=== PATIENT | male | born 1975 | race Caucasian/White ===

== ENCOUNTER 2016-08-06 11:13 | Inpatient (IN) ==
--- NOTE | 2016-08-06 11:26 | Emergency Department Note ---
Disposition Clinical Impression: Perforated appendicitis Sepsis Qualifiers: Sepsis type: sepsis due to unspecified organism Qualified Code(s): A41.9 - Sepsis, unspecified organism Disposition: Admitted As Inpatient Condition: Fair Time of Disposition: 15:07 SOB HPI - General Chief Complaint: ED Shortness of Breath/Dyspnea Stated Complaint: SOB weakness Time Seen by Provider: 08/06/16 11:21 Source: patient Limitations: no limitations Nursing Notes Reviewed: Yes Vital Signs Reviewed: Yes - History of Present Illness 40-year-old male with history of GI bleed, previous colonoscopy showed a colonic ulcer, patient presents with abdominal pain and lower quadrant for 3 days, worsening for the last few hours. Patient states that he has had an episode of consultation then followed by diarrhea after he took a laxative. She states that he has 8 out of 10 crampy right lower quadrant pain also right upper quadrant pain. He has had some blood in his stool as well. Pt Subjective Complaint: shortness of breath Onset (ago): day(s) (3) Severity: mild Consistency/Duration: intermittent Improves with: nothing Worsens with: nothing Associated symptoms: Reports: denies other symptoms, fever, nausea/vomiting, abdominal pain. Denies: chest pain, pain with inspiration Treatment prior to arrival: none - Related Data Home Medications Medication Instructions Recorded Confirmed Albuterol Sulfate [Ventolin Hfa] 2 puff IH Q4H PRN 08/06/16 08/06/16 Ferrous Gluconate 324 mg PO DAILY 08/06/16 08/06/16 Lisinopril [Zestril] 20 mg PO DAILY 08/06/16 08/06/16 Metformin [Glucophage] 500 mg PO QPM 08/06/16 08/06/16 Metformin [Glucophage] 850 mg PO QAM 08/06/16 08/06/16 Mv-Mn/FA/Vit K/Lycop/Lut/Coq10 1 cap PO DAILY 08/06/16 08/06/16 [Daily Multivitamin Capsule] Allergies Allergy/AdvReac Type Severity Reaction Status Date / Time sulfamethoxazole AdvReac Nausea Verified 08/06/16 11:15 [From Bactrim] trimethoprim [From Bactrim] AdvReac Nausea Verified 08/06/16 11:15 All systems ED: reviewed and negative except as stated. Constitutional: Reports: fever. Denies: chills Cardiovascular: Denies: chest pain, palpitations Respiratory: Denies: cough, dyspnea, wheezes Gastrointestinal: Reports: as per HPI, abdominal pain, nausea, vomiting, diarrhea, constipation Genitourinary: Denies: urgency, dysuria Musculoskeletal: Denies: back pain Neurological: Denies: headache, weakness Past Medical History - Past Medical History Attestation: Yes The following information was validated with the patient. Source: patient Medical history: Reports: diabetes, hypertension Psychiatric history: Reports: no psych history - Social History Smoking Status: Never smoker Smokeless Tobacco Status: Yes Alcohol use: Reports: occasionally Drug use: Reports: none Physical Exam Constitutional: Patient appears in moderate discomfort, vital signs tachycardic HEENT: NCAT, sclera anicteric, PERRLA bilaterally, normal external ears bilaterally, nasal septum nondeviated, average dentition, MMM Neck: normal inspection, neck is supple, trachea midline Resp: normal chest inspection, CTA bilaterally, no resp distress CV: RRR, no m/g/r GI: obese abdomen No Rigidity, patient with some rebound tenderness, and moderate to severe tt palpation right lower quadrant, and guarding. Back: normal inspection, no tenderness to palpation Neuro: A&O3, no gross motor or sensory deficits bilaterally Skin: No rashes, skin warm, dry, intact - General Limitations: no limitations General appearance: alert Course Course Narrative: 40-year-old male with abdominal pain, given guarding on exam, concern for acute intra-abdominal pathology, if he did have a previous ulcer concerned about perforation patient also could have cholecystitis or appendicitis, CT with IV contrast of abdomen, hepatic panel basic labs IV fluids and antiemetics and pain medication. - Reevaluation(s) Reevaluation #1: Patient with perforated appendicitis, I did speak with the surgeon, he declined admission for this patient at this time given comorbidities of hypertension and diabetes, and perforated status he states medical management, I spoke with Dr. Melendrez he stated that he will come down to assess the patient as he feels that this is an surgically appropriate patient, and will discuss the case with Dr. Pack. Time: 15:10 Reevaluation #2: Patient had a blood pressure 80/40, added an extra liter of fluid, patient's blood pressure did respond this was immediately after Dilaudid was given, his blood pressure was 100/65 after that, maintain a map greater than 65 however patient was also evaluated y dr Melendrez at bedside Given tachycardia and leukocytosis, meets criteria for sepsis, meets her here for severe sepsis or septic shock with elevated lactate, this was ordered added fluids antibiotics. Dr. Pack was called by the hospitalist, he will come to the bedside to evaluate the patient for urgent/emergent operative management Time: 15:49 - Consultations Consultation #1: Spoke with Dr. Pack did discuss exam with guarding and concern for surgical abdomen, he stated that the patient is a medical patient, she be admitted to the hospitalist for an interval appendectomy, he will see the patient in consultation, no recs on antibiotics. Time: 15:09 Vital Signs Temperature 99.3 F 08/06/16 11:15 Pulse Rate 100 08/06/16 11:15 Respiratory Rate 16 08/06/16 11:15 Blood Pressure 142/71 08/06/16 11:15 O2 Sat by Pulse Oximetry 96 08/06/16 11:15 Temperature 99.3 F 08/06/16 11:28 Pulse Rate 102 08/06/16 16:03 Respiratory Rate 18 08/06/16 16:03 Blood Pressure 121/63 08/06/16 16:03 O2 Sat by Pulse Oximetry 97 08/06/16 16:03 Oxygen Delivery Oxygen Delivery Room Air Shortness of Breath/Dyspnea - Medical Records Medical records reviewed: Yes I reviewed the patient's medical records. - Lab Data Lab results reviewed: Yes I reviewed the patient's lab results. Result diagrams: 08/06/16 11:44 08/06/16 11:44 Lab Results 08/06/16 08/06/16 08/06/16 Range/Units 11:35 11:44 11:44 WBC 18.9 H (4.3-11.1) K/mcL RBC 4.84 (4.19-5.50) M/mcL Hgb 12.3 L (12.9-16.9) g/dL Hct 38.5 (37.5-50.1) % MCV 79.5 L (83.0-100.0) fL MCH 25.4 L (28.0-33.3) pg MCHC 31.9 (31.6-35.5) g/dL RDW 15.6 H (11.5-14.5) % Plt Count 274 (140-400) K/mcL MPV 11.0 (9.4-12.4) fL Immature Gran % 1.1 (0-4) % Seg Neutrophils % 91.0 % Lymphocytes % 3.5 % Monocytes % 3.9 % Eosinophils % 0.2 % Basophils % 0.3 % Neutrophils # 17.2 H (1.6-8.9) K/mcL Lymphocytes # 0.7 (0.6-4.6) K/mcL Monocytes # 0.7 (0.0-1.3) K/mcL Eosinophils # 0.0 (0.0-0.6) K/mcL Basophils # 0.1 (0.0-0.2) K/mcL Platelet Estimate Normal (Normal) Immature Plt Fraction 8.3 H (1.1-6.1) % PT (9.4-12.1) Seconds INR APTT (26.0-36.0) Seconds Sodium 134 L (136-145) mEq/L Potassium 3.6 (3.5-4.5) mEq/L Chloride 104 (98-109) mEq/L Carbon Dioxide 22 (19-29) mEq/L BUN 13 (8-26) mg/dL Creatinine 0.85 (0.72-1.25) mg/dL Est GFR ( Amer) > 60 (> 60) Est GFR (Non-Af Amer) > 60 (> 60) BUN/Creatinine Ratio 15 (6-26) Glucose 148 H (70-99) mg/dL Calculated Osmolality 281 (280-300) Lactic Acid (0.5-2.2) mmol/L Calcium 8.8 (8.6-10.8) mg/dL Total Bilirubin 1.7 H (0.2-1.2) mg/dL Direct Bilirubin 0.7 H (0.0-0.5) mg/dL Indirect Bilirubin 1.0 (0.0-1.2) mg/dL AST 9 (5-34) Units/L ALT 15 (0-55) Units/L Alkaline Phosphatase 79 (38-126) Units/L Troponin I (0-0.03) ng/mL Serum Total Protein 6.5 (6.0-8.3) g/dL Albumin 2.8 L (3.5-5.0) g/dL Globulin 3.7 H (2.4-3.5) g/dL Albumin/Globulin Ratio 0.8 L (1.1-2.2) Amylase 16 L (25-125) Units/L Lipase 6 L (8-78) Units/L Urine Color (Yellow) Urine Clarity (Clear) Urine pH (5.0-8.0) pH Units Ur Specific [place] (1.010-1.025) Urine Protein (Neg-Trace) mg/dL Urine Glucose (UA) (Normal) mg/dL Urine Ketones (Negative) mg/dL Urine Blood (Negative) Urine Nitrite (Negative) Urine Bilirubin (Negative) Urine Urobilinogen (Normal) mg/dL Ur Leukocyte Esterase (Negative) Urine Microscopic RBC (0-3) per hpf Urine Microscopic WBC (0-3) per hpf Ur Squamous Epith Cells (None-Few) per lpf Urine Bacteria (None-Few) per hpf Hyaline Casts (None-Few) per lpf Ur Culture Indicated? (NO) Stool Occult Blood Negative (Negative) 08/06/16 08/06/16 08/06/16 Range/Units 11:44 13:15 14:56 WBC (4.3-11.1) K/mcL RBC (4.19-5.50) M/mcL Hgb (12.9-16.9) g/dL Hct (37.5-50.1) % MCV (83.0-100.0) fL MCH (28.0-33.3) pg MCHC (31.6-35.5) g/dL RDW (11.5-14.5) % Plt Count (140-400) K/mcL MPV (9.4-12.4) fL Immature Gran % (0-4) % Seg Neutrophils % % Lymphocytes % % Monocytes % % Eosinophils % % Basophils % % Neutrophils # (1.6-8.9) K/mcL Lymphocytes # (0.6-4.6) K/mcL Monocytes # (0.0-1.3) K/mcL Eosinophils # (0.0-0.6) K/mcL Basophils # (0.0-0.2) K/mcL Platelet Estimate (Normal) Immature Plt Fraction (1.1-6.1) % PT 13.7 H (9.4-12.1) Seconds INR 1.3 APTT 30.3 (26.0-36.0) Seconds Sodium (136-145) mEq/L Potassium (3.5-4.5) mEq/L Chloride (98-109) mEq/L Carbon Dioxide (19-29) mEq/L BUN (8-26) mg/dL Creatinine (0.72-1.25) mg/dL Est GFR ( Amer) (> 60) Est GFR (Non-Af Amer) (> 60) BUN/Creatinine Ratio (6-26) Glucose (70-99) mg/dL Calculated Osmolality (280-300) Lactic Acid (0.5-2.2) mmol/L Calcium (8.6-10.8) mg/dL Total Bilirubin (0.2-1.2) mg/dL Direct Bilirubin (0.0-0.5) mg/dL Indirect Bilirubin (0.0-1.2) mg/dL AST (5-34) Units/L ALT (0-55) Units/L Alkaline Phosphatase (38-126) Units/L Troponin I 0.00 (0-0.03) ng/mL Serum Total Protein (6.0-8.3) g/dL Albumin (3.5-5.0) g/dL Globulin (2.4-3.5) g/dL Albumin/Globulin Ratio (1.1-2.2) Amylase (25-125) Units/L Lipase (8-78) Units/L Urine Color Dark Yellow (Yellow) Urine Clarity Cloudy A (Clear) Urine pH 6.0 (5.0-8.0) pH Units Ur Specific [place] 1.029 H (1.010-1.025) Urine Protein 100 H (Neg-Trace) mg/dL Urine Glucose (UA) Normal (Normal) mg/dL Urine Ketones 40 H (Negative) mg/dL Urine Blood Negative (Negative) Urine Nitrite Negative (Negative) Urine Bilirubin Small H (Negative) Urine Urobilinogen Normal (Normal) mg/dL Ur Leukocyte Esterase Negative (Negative) Urine Microscopic RBC 0-3 (0-3) per hpf Urine Microscopic WBC 5-15 H (0-3) per hpf Ur Squamous Epith Cells Many H (None-Few) per lpf Urine Bacteria None Seen (None-Few) per hpf Hyaline Casts None Seen (None-Few) per lpf Ur Culture Indicated? YES A (NO) Stool Occult Blood (Negative) 08/06/16 Range/Units 16:10 WBC (4.3-11.1) K/mcL RBC (4.19-5.50) M/mcL Hgb (12.9-16.9) g/dL Hct (37.5-50.1) % MCV (83.0-100.0) fL MCH (28.0-33.3) pg MCHC (31.6-35.5) g/dL RDW (11.5-14.5) % Plt Count (140-400) K/mcL MPV (9.4-12.4) fL Immature Gran % (0-4) % Seg Neutrophils % % Lymphocytes % % Monocytes % % Eosinophils % % Basophils % % Neutrophils # (1.6-8.9) K/mcL Lymphocytes # (0.6-4.6) K/mcL Monocytes # (0.0-1.3) K/mcL Eosinophils # (0.0-0.6) K/mcL Basophils # (0.0-0.2) K/mcL Platelet Estimate (Normal) Immature Plt Fraction (1.1-6.1) % PT (9.4-12.1) Seconds INR APTT (26.0-36.0) Seconds Sodium (136-145) mEq/L Potassium (3.5-4.5) mEq/L Chloride (98-109) mEq/L Carbon Dioxide (19-29) mEq/L BUN (8-26) mg/dL Creatinine (0.72-1.25) mg/dL Est GFR ( Amer) (> 60) Est GFR (Non-Af Amer) (> 60) BUN/Creatinine Ratio (6-26) Glucose (70-99) mg/dL Calculated Osmolality (280-300) Lactic Acid 0.7 (0.5-2.2) mmol/L Calcium (8.6-10.8) mg/dL Total Bilirubin (0.2-1.2) mg/dL Direct Bilirubin (0.0-0.5) mg/dL Indirect Bilirubin (0.0-1.2) mg/dL AST (5-34) Units/L ALT (0-55) Units/L Alkaline Phosphatase (38-126) Units/L Troponin I (0-0.03) ng/mL Serum Total Protein (6.0-8.3) g/dL Albumin (3.5-5.0) g/dL Globulin (2.4-3.5) g/dL Albumin/Globulin Ratio (1.1-2.2) Amylase (25-125) Units/L Lipase (8-78) Units/L Urine Color (Yellow) Urine Clarity (Clear) Urine pH (5.0-8.0) pH Units Ur Specific [place] (1.010-1.025) Urine Protein (Neg-Trace) mg/dL Urine Glucose (UA) (Normal) mg/dL Urine Ketones (Negative) mg/dL Urine Blood (Negative) Urine Nitrite (Negative) Urine Bilirubin (Negative) Urine Urobilinogen (Normal) mg/dL Ur Leukocyte Esterase (Negative) Urine Microscopic RBC (0-3) per hpf Urine Microscopic WBC (0-3) per hpf Ur Squamous Epith Cells (None-Few) per lpf Urine Bacteria (None-Few) per hpf Hyaline Casts (None-Few) per lpf Ur Culture Indicated? (NO) Stool Occult Blood (Negative) - Radiology Data Radiology results reviewed: Yes I reviewed the patient's radiology results. - EKG Data EKG attestation: Yes I reviewed and interpreted this EKG. EKG shows normal: Reports: sinus rhythm Rate: Reports: tachycardia (Sinus tachycardia ventricular rate 100 CA 138 QRS [address] segment changes from previous EKG in 2013) Rhythm: Reports: NSR [place]/QRS: Reports: normal Interpretation: Reports: no acute changes
[2016-08-06] MEDS ORDERED: Ondansetron 4 MG/2 ML VIAL IVP ONE ×2 (11:34→14:41)
[2016-08-06] MEDS ORDERED: 0.9 % Sodium Chloride 1,000 ML IVC ONE (11:34)
[2016-08-06] MEDS ORDERED: Pantoprazole 40 MG VIAL IVP ONE (11:34)
--- NOTE | 2016-08-06 11:49 | Emergency Department Note ---
START Narrative - START START: I examined this patient and my medical decision-making was reviewed with the [employer]/PA/Advanced Practice Nurse/Resident Physician. I agree with the documented findings, disposition and treatment plan as described except to the extent set forth below. ED attending note: Patient seen with emergency medicine resident Dr. Nails. Please see a copy of his note for details of the H&P, evaluation, management and disposition of this patient. We independently had [id number] contact with the patient Briefly: A 40-year-old obese male presents with significant other abdominal pain in the left side. History of intestinal ulcers in the past by endoscopy. The GI bleeding in the past in 2013. Denies any dark stools. He said he has not been using nonsteroidal anti-inflammatory drugs. Slight tachycardia at rest between 101 06. Hypertensive which is baseline. Patient will get labs IV fluids and abdominal pelvic CT. Disposition pending.
[2016-08-06 12:17] LABS: Basophils # 0.1 K/mcL (0.0-0.2); Basophils % 0.3 %; Eosinophils % 0.2 %; Hematocrit 38.5 % (37.5-50.1); Hemoglobin 12.3 g/dL (12.9-16.9); Immature Granulocytes % 1.1 % (0-4); Immature Platelets 8.3 % (1.1-6.1); Lymphocytes # 0.7 K/mcL (0.6-4.6); Lymphocytes % 3.5 %; Mean Corpuscular HGB Conc 31.9 g/dL (31.6-35.5); Mean Corpuscular Hemoglobin 25.4 pg (28.0-33.3); Mean Corpuscular Volume 79.5 fL (83.0-100.0); Monocytes # 0.7 K/mcL (0.0-1.3); Monocytes % 3.9 %; Neutrophils # 17.2 K/mcL (1.6-8.9); Platelet Count 274 K/mcL (140-400); Red Blood Count 4.84 M/mcL (4.19-5.50); Red Cell Distribution Width 15.6 % (11.5-14.5)
[2016-08-06 12:32] LABS: Alanine Aminotransferase 15 Units/L (0-55); Albumin 2.8 g/dL (3.5-5.0); Albumin/Globulin Ratio 0.8 (1.1-2.2); Alkaline Phosphatase 79 Units/L (38-126); Amylase 16 Units/L (25-125); Aspartate Amino Transferase 9 Units/L (5-34); BUN/Creatinine Ratio 15 (6-26); Bilirubin,Direct 0.7 mg/dL (0.0-0.5); Bilirubin,Total 1.7 mg/dL (0.2-1.2); Blood Urea Nitrogen 13 mg/dL (8-26); Calcium 8.8 mg/dL (8.6-10.8); Carbon Dioxide 22 mEq/L (19-29); Chloride 104 mEq/L (98-109); Globulin 3.7 g/dL (2.4-3.5); Glucose 148 mg/dL (70-99); Lipase 6 Units/L (8-78); Osmolality,Calculated 281 (280-300); Potassium 3.6 mEq/L (3.5-4.5); Sodium 134 mEq/L (136-145); Total Protein 6.5 g/dL (6.0-8.3); eGFR For African Americans > 60 (> 60); eGFR For Non-African Americans > 60 (> 60)
[2016-08-06 12:46] LABS: Platelet Estimate Normal (Normal)
[2016-08-06 13:28] LABS: Bilirubin,Urine Small (Negative); Blood,Urine Negative (Negative); Clarity,Urine Cloudy (Clear); Color,Urine Dark Yellow (Yellow); Glucose,Urine (UA) Normal (Normal); Ketones,Urine 40 mg/dL (Negative); Leukocyte Esterase,Urine Negative (Negative); Nitrite,Urine Negative (Negative); Protein,Urine 100 mg/dL (Neg-Trace); Specific Gravity,Urine 1.029 (1.010-1.025); Urobilinogen,Urine Normal (Normal)
[2016-08-06 13:30] LABS: Bacteria,Urine None Seen per hpf (None-Few); Hyaline Casts,Urine None Seen per lpf (None-Few); RBC,Urine 0-3 per hpf (0-3); Squamous Epithelial Cell,Urine Many per lpf (None-Few)
[2016-08-06] MEDS ORDERED: *HR* HYDROmorphone (PF) 1 MG/ML SYRINGE IVP ONE (14:41)
[2016-08-06] MEDS ORDERED: 0.9 % Sodium Chloride 1,000 ML IV ONE (15:37)
[2016-08-06] MEDS ORDERED: Piperacillin/Tazobactam 3.375 GM in D5% in Water (Mini-Bag+) 100 ML IVPB ONE (15:38)
[2016-08-06] MEDS ORDERED: Vancomycin 1,000 MG in D5% in Water 250 ML IV ONE (15:46)
[2016-08-06 16:08] LABS: INR 1.3; Prothrombin Time 13.7 Seconds (9.4-12.1)
[2016-08-06 16:11] LABS: Activated Partial Thrombo Time 30.3 Seconds (26.0-36.0)
--- NOTE | 2016-08-06 16:22 | Internal Medicine Consult Note ---
Date of Encounter: 08/06/16 Time of Encounter: 16:12 - Assessment and Plan (1) Septic shock Current Visit: Yes Status: Acute Assessment and plan: We will give 30 mL per kilogram normal saline IV bolus. Check lactic acid stat. Repeat lactic acid at 3 hours. Obtain 2 blood cultures. 2 blood cultures. Obtain urine culture. Broad spectrum IV antibiotic to cover gram- negative rods gram-positive cocci and anaerobes with Zosyn and vancomycin. Source control per surgical service. (2) Essential hypertension Current Visit: Yes Status: Acute Assessment and plan: Hold off on antihypertensives due to hypotension. (3) Type 2 diabetes mellitus Current Visit: Yes Status: Acute Assessment and plan: Insulin sliding scale. Check hemoglobin A1c. Qualifiers: Qualified Code(s): E11.9 - Type 2 diabetes mellitus without complications (4) Intra-abdominal abscess Current Visit: Yes Status: Acute Assessment and plan: Broad-spectrum IV antibiotics. (5) DVT prophylaxis Current Visit: Yes Status: Acute Assessment and plan: Recommend Lovenox for DVT prophylaxis. (6) Perforated appendicitis Current Visit: Yes Status: Acute Assessment and plan: Patient has perforated appendicitis as a suspected source of sepsis and requires emergent surgical evaluation. He ultimately requires surgical management for this. I will defer management to surgical service. Internal Medicine - CN: HPI - Data of Consult Patient: new to practice Requesting Physician: Dr. Price - Consult Narrative History of present illness: Mr. Dewey is a 40 year old male with past medical history significant for hypertension diabetes and morbid obesity who presented to the hospital for right -sided abdominal pain. He states that for the last 5 days has had constipation and 2 days ago on Sunday he started having moderate to severe right lower abdominal pain. He thought it was due to his constipation and he started taking some laxatives. The next day he had a bowel movement and the pain subsided slightly however then increased again in intensity to the point where he got unbearable 10/10 stabbing and reporting right lower abdominal pain associated with nausea no vomiting generalized weakness and subjective fevers. At this point he could not stand up and walk as that but exacerbated the pain. He presented to the hospital where he was evaluated in the emergency department and found to be febrile and tachycardic. CT of the abdomen showed evidence of perforated appendix and an gas/fluid collection suspicious for abscess. We were called to admit the patient to the medical service. A 10 point review of systems was negative except as above. Family history positive for diabetes in both parents and grandparents. Physical exam: Patient is in distress due to abdominal pain, and an antalgic position lying on his side. He is ill-appearing. Head atraumatic, pupils equal round reactive to light conjunctivae anicteric Oral mucosa dry, neck supple no JVD Heart is tachycardic regular S1-S2 with no murmurs Lungs with diminished breath sounds bilaterally. Poor inspiratory effort. Abdomen is obese, soft, tender to. Palpation in the right lower quadrant with localized guarding and rebound tenderness. Extremities with no edema clubbing or cyanosis Skin with no rashes no open wounds Neuro exam awake alert oriented 3 with no focal neurological deficits. Past Med Surg Social Fam HX - Past Medical History Medical history: diabetes, hypertension Psychiatric history: no psych history - Social History Smoking Status: Never smoker Smokeless Tobacco Status: Yes Alcohol use: occasionally Drug use: none Internal Medicine - CN: Meds Albuterol Sulfate [Ventolin Hfa] 2 puff IH Q4H PRN 08/06/16 [History] Ferrous Gluconate 324 mg PO DAILY 08/06/16 [History] Lisinopril [Zestril] 20 mg PO DAILY 08/06/16 [History] Metformin [Glucophage] 500 mg PO QPM 08/06/16 [History] Metformin [Glucophage] 850 mg PO QAM 08/06/16 [History] Mv-Mn/FA/Vit K/Lycop/Lut/Coq10 [Daily Multivitamin Capsule] 1 cap PO DAILY 08/06 [History] Allergies sulfamethoxazole [From Bactrim] Adverse Reaction (Verified 08/06/16 11:15) Nausea trimethoprim [From Bactrim] Adverse Reaction (Verified 08/06/16 11:15) Nausea Internal Medicine - CN: Exam - Constitutional Vitals: Temp Pulse Resp BP Pulse Ox 99.3 F 102 18 121/63 97 08/06/16 11:28 08/06/16 16:03 08/06/16 16:03 08/06/16 16:03 08/06/16 16:03 General appearance IM: Present: A&O X 3, morbidly obese - Respiratory Respiratory exam: Present: CTAB Additional comments: Diminished breath sounds bilaterally due to pain. Internal Medicine - CN: Reslt - Labs CBC & Chem 7: 08/06/16 11:44 08/06/16 11:44 Labs: Short CBC 08/06/16 Range/Units 11:44 WBC 18.9 H (4.3-11.1) K/mcL Hgb 12.3 L (12.9-16.9) g/dL Hct 38.5 (37.5-50.1) % Plt Count 274 (140-400) K/mcL Neutrophils # 17.2 H (1.6-8.9) K/mcL BMP 08/06/16 11:44 Sodium 134 L Potassium 3.6 Chloride 104 Carbon Dioxide 22 BUN 13 Creatinine 0.85 Glucose 148 H Calcium 8.8 Cardiac Enzymes 08/06/16 Range/Units 11:44 Troponin I 0.00 (0-0.03) ng/mL Liver Function 08/06/16 Range/Units 11:44 Total Bilirubin 1.7 H (0.2-1.2) mg/dL Direct Bilirubin 0.7 H (0.0-0.5) mg/dL AST 9 (5-34) Units/L ALT 15 (0-55) Units/L Alkaline Phosphatase 79 (38-126) Units/L Albumin 2.8 L (3.5-5.0) g/dL Urine 08/06/16 Range/Units 13:15 Urine Color Dark Yellow (Yellow) Urine Clarity Cloudy A (Clear) Urine pH 6.0 (5.0-8.0) pH Units Ur Specific [place] 1.029 H (1.010-1.025) Urine Protein 100 H (Neg-Trace) mg/dL Urine Glucose (UA) Normal (Normal) mg/dL - ABG Interpretation ABG results: PT/INR, D-dimer PT 13.7 Seconds (9.4-12.1) H 08/06/16 14:56 - EKG Data EKG comments: 08/06/16 16:29 Telemetry strip reviewed by myself shows sinus tachycardia. - Impressions Impressions Abdomen/Pelvis CT 08/06/16 11:37 IMPRESSION: Acute perforated appendicitis. A 2 cm gas and fluid collection adjacent to the tip of the appendix is suspicious for a small abscess D/ / Freedom Anderson MD / Freedom Anderson MD Interpreting Provider: Freedom Anderson MD Consult Discharge Plan - Plan
[2016-08-06] MEDS ORDERED: Acetaminophen IV 1,000 MG/100 ML INFUS..BTL IVPB ONE (16:27)
[2016-08-06] MEDS: 0.9 % Sodium Chloride 1,000 ML IVC SCH ×2 (17:05→20:01)
[2016-08-06] MEDS: *HR* HYDROmorphone (PF) 1 MG/ML SYRINGE IVP ONE (17:17)
[2016-08-06] MEDS ORDERED: *HR* Dextrose 50 % in Water (Syg) 50 ML SYRINGE IVP PRN ×2 (17:24→19:08)
[2016-08-06] MEDS ORDERED: D5% in Water 1,000 ML IV PRN ×2 (17:24→19:08)
[2016-08-06] MEDS ORDERED: Ondansetron 4 MG/2 ML VIAL IVP PRN (17:24)
[2016-08-06] MEDS ORDERED: Dextrose Gel 15 GM PO PRN ×2 (17:24→19:08)
[2016-08-06] MEDS ORDERED: Nicotine 21 MG PATCH.TD24 TD SCH (17:30)
[2016-08-06] MEDS ORDERED: Insulin LISPRO 300 UNITS/3 ML VIAL SQ SCH (17:30)
[2016-08-06] MEDS ORDERED: Piperacillin/Tazobactam 3.375 GM in D5% in Water (Mini-Bag+) 100 ML IVPB SCH (18:00)
--- NOTE | 2016-08-06 18:17 | Pulmonology Consult Note ---
Date of Encounter: 08/06/16 Time of Encounter: 18:16 Assessment and Plan (1) Sepsis Current Visit: Yes Status: Acute Sepsis secondary to intra-abdominal source including ruptured appendicitis with formation intra-abdominal abscess. MAP >65 at this time. Lactate WNL. Remains tachycardic likely pain coupled with infection -Cont IV ABx -Escalante cultures pending - Patient has recieved 2L of Crystolloid INfusion -COnt IV fluids (LR at 125cc/hr) Qualifiers: Sepsis type: sepsis due to unspecified organism Qualified Code(s): A41.9 - Sepsis, unspecified organism (2) Intra-abdominal abscess Current Visit: Yes Status: Acute Continue IV ABx Pip/Tazo for intraabdominal coverage. (3) Perforated appendicitis Current Visit: Yes Status: Acute -General Surgery is kindly following the patient. No Surgical intervention planned this evening -Keep NPO for now cont IV pain control with Morphine -Nausea control with Zofran - (4) Type 2 diabetes mellitus Current Visit: Yes Status: Acute Type 2 diabetes however patient is maintained on oral agents including metformin which will hold acutely put on sliding scale and insulin check Accu- Cheks every 6 hours while nothing by mouth Qualifiers: Diabetes mellitus complication status: without complication Diabetes mellitus intermediate designer insulin use: without intermediate designer use Qualified Code(s): E11.9 - Type 2 diabetes mellitus without complications (5) Essential hypertension Current Visit: Yes Status: Acute (6) DVT prophylaxis Current Visit: Yes Status: Acute Recommned Chemical DVT prophylaxis while inpatient. History of Present Illness Consult date: 08/06/16 Requesting physician: Anibal Pack Reason for consult: other (sepsis) Chief complaint: Abdominal Pain History of present illness: Very pleasant 40-year-old gentleman who presented with abdominal pain of 2 days ' duration. For that Sunday he started having right lower quadrant abdominal pain with nausea and diarrhea for which he took OTC (immodium). His symptoms continued through Sunday woke up this morning and the pain was so intense that he felt like he could not bear it anymore and presented to the emergency department. In the emergency department a CT of the abdomen was performed which was notable for ruptured appendix. Patient was showing signs of sepsis including tachycardia and elevated white count and was started empirically on antimicrobials and given some IV crystalloid infusion. He was evaluated by the general surgery attending who felt medical management at present was consideration of surgery in the future. Our services consult for further management as patient had been triaged to the intensive care unit. His past medical history is remarkable for obstructive sleep apnea status post UP3 with resolution of symptoms and per the patient repeat polysomnogram was not indicative of residual disease. He is a lifelong nonsmoker and a social (Rare) use of EtOH. He denies IV drug use Of note he was recently admitted in the [facility] for a staph abscess which was drained and treated with antimicrobials Past Med Surg Social Fam HX - Past Medical History Medical history: diabetes, hypertension Psychiatric history: no psych history - Social History Smoking Status: Never smoker Smokeless Tobacco Status: Yes Alcohol use: occasionally Drug use: none Medications and Allergies Albuterol Sulfate [Ventolin Hfa] 2 puff IH Q4H PRN 08/06/16 [History] Ferrous Gluconate 324 mg PO DAILY 08/06/16 [History] Lisinopril [Zestril] 20 mg PO DAILY 08/06/16 [History] Metformin [Glucophage] 500 mg PO QPM 08/06/16 [History] Metformin [Glucophage] 850 mg PO QAM 08/06/16 [History] Mv-Mn/FA/Vit K/Lycop/Lut/Coq10 [Daily Multivitamin Capsule] 1 cap PO DAILY 08/06 [History] Allergies sulfamethoxazole [From Bactrim] Adverse Reaction (Verified 08/06/16 11:15) Nausea trimethoprim [From Bactrim] Adverse Reaction (Verified 08/06/16 11:15) Nausea All Systems: A 10-system review of systems was performed and is negative for pertinent findings except as documented above in the HPI. Physical Examination Vital Signs: Vital Signs, Last 4 Hours Temp Pulse Resp BP Pulse Ox 08/06/16 17:33 18 127/83 08/06/16 17:24 100.7 F H 106 20 124/70 95 General appearance: appears uncomfortable Eyes: nonicteric ENT: oropharynx moist Effort: mildly labored Auscultation: bilateral: diminished breath sounds Gastrointestinal: hypoactive bowel sounds, tender, rebound tenderness Integumentary: normal Extremities: no edema Musculoskeletal: no deformities normal mental status, non-focal exam mood appropriate Results - Laboratory Findings CBC and BMP: 08/06/16 11:44 08/06/16 11:44 PT/INR, D-dimer PT 13.7 Seconds (9.4-12.1) H 08/06/16 14:56 Abnormal lab findings: Abnormal lab results WBC 18.9 K/mcL (4.3-11.1) H 08/06/16 11:44 Hgb 12.3 g/dL (12.9-16.9) L 08/06/16 11:44 MCV 79.5 fL (83.0-100.0) L 08/06/16 11:44 MCH 25.4 pg (28.0-33.3) L 08/06/16 11:44 RDW 15.6 % (11.5-14.5) H 08/06/16 11:44 Neutrophils # 17.2 K/mcL (1.6-8.9) H 08/06/16 11:44 Immature Plt Fraction 8.3 % (1.1-6.1) H 08/06/16 11:44 PT 13.7 Seconds (9.4-12.1) H 08/06/16 14:56 Sodium 134 mEq/L (136-145) L 08/06/16 11:44 Glucose 148 mg/dL (70-99) H 08/06/16 11:44 POC Glucose 117 (58-89) H 08/06/16 17:59 Total Bilirubin 1.7 mg/dL (0.2-1.2) H 08/06/16 11:44 Direct Bilirubin 0.7 mg/dL (0.0-0.5) H 08/06/16 11:44 Albumin 2.8 g/dL (3.5-5.0) L 08/06/16 11:44 Globulin 3.7 g/dL (2.4-3.5) H 08/06/16 11:44 Albumin/Globulin Ratio 0.8 (1.1-2.2) L 08/06/16 11:44 Amylase 16 Units/L (25-125) L 08/06/16 11:44 Lipase 6 Units/L (8-78) L 08/06/16 11:44 Urine Clarity Cloudy (Clear) A 08/06/16 13:15 Ur Specific [place] 1.029 (1.010-1.025) H 08/06/16 13:15 Urine Protein 100 mg/dL (Neg-Trace) H 08/06/16 13:15 Urine Ketones 40 mg/dL (Negative) H 08/06/16 13:15 Urine Bilirubin Small (Negative) H 08/06/16 13:15 Urine Microscopic WBC 5-15 per hpf (0-3) H 08/06/16 13:15 Ur Squamous Epith Cells Many per lpf (None-Few) H 08/06/16 13:15 Ur Culture Indicated? YES (NO) A 08/06/16 13:15 - Diagnostic Findings Additional studies: CT abdomen reviewed - Clinical Findings Intake & Output: Intake & Output 08/06/16 08/06/16 08/06/16 07:59 15:59 23:59 Output Total 0 / 0 Balance 0 / 0 Consult Discharge Plan - Plan Referrals: NO,PCP [Primary Care Provider] -
--- NOTE | 2016-08-06 18:30 | General Surg History&Physical ---
Date of Encounter: 08/06/16 Time of Encounter: 16:00 History of Present Illness Chief complaint: acute abdominal pain, acute perforated appendicitis HPI: Mr. Dewey is a 40 year old male referred to Surgical Services for further evaluation and possible treatment 3 days history right lower quadrant abdominal pain. The patient is known to me related to a colonoscopy approx 2 years ago for anemia / GI hemorrhage. The patient has a chronic history constipation. He describes no BM for the past 5 days, which he assumed was the source of his pain. Oral laxatives were ingested with no improvement in his symptoms. The patient presented to [facility] ED this morning with complaints cramping right lower quadrant abdominal pain and "difficulty breathing\\/shortness of breath. During my encounter with the patient, he described pain on deep inspiration and walking. vital signs on admission included a temp 99.3, pulse 100, respirations 16 and BP 142/71. SPO2 on room air was 96 %. WBC 18.9, Hgb 12.3/Hct 38.5. The patient was extremely tender RLQ with guarding. CT of the abd/pelvis showed: left basilar atelectasis, extensive inflammatory stranding surrounding the tip of the cecum with multiple extraluminal gas bubbles posterior to the cecum, a dilated and inflamed appendix , a 2 cm fluid collection containing gas near the tip of the cecum. These findings are consistent with acute perforated appendicitis. Surgical recommendations included IV fluids, IV ATB, appropriate pain control and if the patient improves with this therapy, interval appendectomy in approx 6 weeks. Medical assessment disagreed with these recommendations. The admission was deferred to Surgical Services. past medical history: Hypertension, abh-[id number] diabetes, nd recent hospitalization for a staphylococcal bacteremia. Surgical history: Tonsillectomy, colonoscopy with finding of bowel ulcer as the source of the anemia and GI hemorrhage. This was attributed to patient's frequent use NSAIDs. Allergies: sulfa Medications: Albuterol Hfa 2 puffs Q4H PRN ferrous gluconate 324 mg po daily lisinopril 20 mg po daily metformin 500 mg po QPM, metformin 850 mg po QAM multivitamin 1 po daily SH: patient denies smoking (smokeless ?); he admits to almost daily alcohol consumption, denies any illicit drug use Physical Examination: obese, age appropriate male in distress due to abdominal pain. skin warm, no obvious jaundice maximum temp 99.3; pulse 102-109, respirations 18, BP on repeated measurement 121/63d Lungs clear to auscultation; abdominal pain with deep inspiration and cough Cardiac: tachycardia, nno appreciable murmurs Abdomen: obese, right lower quadrant tenderness and guarding; less tenderness LLQ with pain referred to RLQ. Hypoactive bowel sounds. no elicited rebound. Extremities: no obvious clubbing, cyanosis, or edema laboratories as noted above; electrolytes,BUN, creatinine within normal limits; estimated GFR greater than 60 Ct was personally reviewed in the ED Impression: 40 yo presents with approx 3 day history acute RLQ abdominal pain. Radiologic evidence acute perforated appendicitis. Prolonged evaluation in the ED with subsequent referral to surgical services. NIDDM, hypertension, history anemia/Gi hemorrhage Plan: admit ICU for aggressive resuscitation and monitoring IV ATB, IV narcotic analgesics, anti emetics as needed Past Med Surg Social Fam HX - Past Medical History Medical history: diabetes, hypertension Psychiatric history: no psych history - Social History Smoking Status: Never smoker Smokeless Tobacco Status: Yes Alcohol use: occasionally Drug use: none Medications and Allergies Albuterol Sulfate [Ventolin Hfa] 2 puff IH Q4H PRN 08/06/16 [History] Ferrous Gluconate 324 mg PO DAILY 08/06/16 [History] Lisinopril [Zestril] 20 mg PO DAILY 08/06/16 [History] Metformin [Glucophage] 500 mg PO QPM 08/06/16 [History] Metformin [Glucophage] 850 mg PO QAM 08/06/16 [History] Mv-Mn/FA/Vit K/Lycop/Lut/Coq10 [Daily Multivitamin Capsule] 1 cap PO DAILY 08/06 [History] Allergies sulfamethoxazole [From Bactrim] Adverse Reaction (Verified 08/06/16 11:15) Nausea trimethoprim [From Bactrim] Adverse Reaction (Verified 08/06/16 11:15) Nausea Review of Systems All systems PM: A 10-system review of systems was performed and is negative for pertinent findings except as documented above in the HPI. General Surgery Exam Initial Vital Signs Temp Pulse Resp BP Pulse Ox 99.3 F 100 16 142/71 96 08/06/16 11:15 08/06/16 11:15 08/06/16 11:15 08/06/16 11:15 08/06/16 11:15 Results - Labs 03/12/17 11:44 08/06/16 11:44 Abnormal lab results WBC 18.9 K/mcL (4.3-11.1) H 08/06/16 11:44 Hgb 12.3 g/dL (12.9-16.9) L 08/06/16 11:44 MCV 79.5 fL (83.0-100.0) L 08/06/16 11:44 MCH 25.4 pg (28.0-33.3) L 08/06/16 11:44 RDW 15.6 % (11.5-14.5) H 08/06/16 11:44 Neutrophils # 17.2 K/mcL (1.6-8.9) H 08/06/16 11:44 Immature Plt Fraction 8.3 % (1.1-6.1) H 08/06/16 11:44 PT 13.7 Seconds (9.4-12.1) H 08/06/16 14:56 Sodium 134 mEq/L (136-145) L 08/06/16 11:44 Glucose 148 mg/dL (70-99) H 08/06/16 11:44 Total Bilirubin 1.7 mg/dL (0.2-1.2) H 08/06/16 11:44 Direct Bilirubin 0.7 mg/dL (0.0-0.5) H 08/06/16 11:44 Albumin 2.8 g/dL (3.5-5.0) L 08/06/16 11:44 Globulin 3.7 g/dL (2.4-3.5) H 08/06/16 11:44 Albumin/Globulin Ratio 0.8 (1.1-2.2) L 08/06/16 11:44 Amylase 16 Units/L (25-125) L 08/06/16 11:44 Lipase 6 Units/L (8-78) L 08/06/16 11:44 Urine Clarity Cloudy (Clear) A 08/06/16 13:15 Ur Specific [place] 1.029 (1.010-1.025) H 08/06/16 13:15 Urine Protein 100 mg/dL (Neg-Trace) H 08/06/16 13:15 Urine Ketones 40 mg/dL (Negative) H 08/06/16 13:15 Urine Bilirubin Small (Negative) H 08/06/16 13:15 Urine Microscopic WBC 5-15 per hpf (0-3) H 08/06/16 13:15 Ur Squamous Epith Cells Many per lpf (None-Few) H 08/06/16 13:15 Ur Culture Indicated? YES (NO) A 08/06/16 13:15 All other labs normal.
[2016-08-06] MEDS ORDERED: *HR* Morphine 2 MG/ML SYRINGE IVP PRN (18:43)
[2016-08-06] MEDS ORDERED: Ringers Solution, Lactated 1,000 ML IVC SCH (18:45)
--- NOTE | 2016-08-06 19:21 | General Surgery Procedure Note ---
Date of procedure: 08/06/16 Pre-op diagnosis: acute perforated appendicitis, requires prolonged IV access Post-op diagnosis: same Procedure: CVL placement left subclavian v. The procedure was discussed with the patient, consent was obtained. Risks include hemorrhage, infection, malposition of the catheter, pneumothorax. With the patient lying supine in his hospital bed, left neck and chest were prepped and draped in usual sterile fashion. A whole body drape was used. The surgeon was gowned, gloved, masked, and capped. Approximately 5 mL 1% lidocaine was infiltrated into the infraclavicular skin. The patient was placed in Trendelenburg. Using an 18-gauge needle the left subclavian vein was located. At no time was air aspirated. The technique described by Warren, a guidewire was passed through the needle, the needle was extracted. Skin tract was incised and dilated. A 16 cm, 3 lumen, 7Fr Arrowgard catheter was advanced over the guidewire to 18 cm. The guidewire was extracted. The catheter was secured to the infraclavicular skin with 3-0 silk. A Biopatch was placed followed by an OpSite dressing. The 3 ports aspirated easily for blood and were flushed with saline. The patient tolerated the procedure well. He had bilateral equal breath sounds at the completion of the line placement. A stat portable chest x-ray is pending and will be reviewed on completion. Complications: none apparent Surgeon: Anibal Pack
[2016-08-06] MEDS ORDERED: Piperacillin/Tazobactam 3.375 GM in D5% in Water (Mini-Bag+) 100 ML IVPB STA (19:23)
[2016-08-06] MEDS: Acetaminophen IV 1,000 MG/100 ML INFUS..BTL IVPB SCH (19:27)
[2016-08-06] MEDS: D5% in 0.9% NACL 1,000 ML IVC SCH (19:36)
[2016-08-06] MEDS: MetroNIDAZOLE 500 MG/100 ML 500 MG/100 ML BAG IVPB SCH (19:36)
[2016-08-06] MEDS: *HR* HYDROmorphone (PF) 1 MG/ML SYRINGE IVP PRN (20:34)
[2016-08-06] MEDS: Pantoprazole 40 MG VIAL IV SCH (20:35)
[2016-08-06] MEDS: Insulin LISPRO 300 UNITS/3 ML VIAL SQ SCH (20:59)
[2016-08-06] MEDS: Nicotine 21 MG PATCH.TD24 TD SCH (22:10)
[2016-08-07] MEDS: Acetaminophen IV 1,000 MG/100 ML INFUS..BTL IVPB SCH ×4 (00:20→18:05)
[2016-08-07] MEDS: MetroNIDAZOLE 500 MG/100 ML 500 MG/100 ML BAG IVPB SCH ×4 (00:40→17:48)
[2016-08-07] MEDS: Insulin LISPRO 300 UNITS/3 ML VIAL SQ SCH ×6 (00:50→17:06)
[2016-08-07] MEDS: D5% in 0.9% NACL 1,000 ML IVC SCH ×2 (03:23→11:13)
[2016-08-07 04:57] LABS: Basophils # 0.1 K/mcL (0.0-0.2); Basophils % 0.3 %; Eosinophils # 0.1 K/mcL (0.0-0.6); Eosinophils % 0.4 %; Hematocrit 35.8 % (37.5-50.1); Hemoglobin 11.3 g/dL (12.9-16.9); Immature Granulocytes % 1.6 % (0-4); Lymphocytes # 0.5 K/mcL (0.6-4.6); Lymphocytes % 3.3 %; Mean Corpuscular HGB Conc 31.6 g/dL (31.6-35.5); Mean Corpuscular Hemoglobin 25.3 pg (28.0-33.3); Mean Corpuscular Volume 80.3 fL (83.0-100.0); Mean Platelet Volume 10.3 fL (9.4-12.4); Monocytes # 0.9 K/mcL (0.0-1.3); Monocytes % 5.7 %; Neutrophils # 13.9 K/mcL (1.6-8.9); Platelet Count 228 K/mcL (140-400); Red Blood Count 4.46 M/mcL (4.19-5.50); Red Cell Distribution Width 15.7 % (11.5-14.5); Segmented Neutrophils % 88.7 %
[2016-08-07 05:12] LABS: Alanine Aminotransferase 12 Units/L (0-55); Albumin 2.3 g/dL (3.5-5.0); Albumin/Globulin Ratio 0.6 (1.1-2.2); Alkaline Phosphatase 75 Units/L (38-126); Aspartate Amino Transferase 10 Units/L (5-34); BUN/Creatinine Ratio 11 (6-26); Bilirubin,Total 1.7 mg/dL (0.2-1.2); Blood Urea Nitrogen 9 mg/dL (8-26); Calcium 8.4 mg/dL (8.6-10.8); Carbon Dioxide 25 mEq/L (19-29); Chloride 105 mEq/L (98-109); Globulin 3.6 g/dL (2.4-3.5); Glucose 173 mg/dL (70-99); Osmolality,Calculated 281 (280-300); Potassium 3.6 mEq/L (3.5-4.5); Sodium 134 mEq/L (136-145); Total Protein 5.9 g/dL (6.0-8.3); eGFR For African Americans > 60 (> 60); eGFR For Non-African Americans > 60 (> 60)
[2016-08-07 05:31] LABS: Platelet Estimate Normal (Normal)
[2016-08-07 05:32] LABS: Poikilocytosis 1+ (Not Present)
[2016-08-07] MEDS: *HR* HYDROmorphone (PF) 1 MG/ML SYRINGE IVP PRN ×7 (05:52→21:07)
--- NOTE | 2016-08-07 07:34 | Pulmonology Progress Note ---
Date of Encounter: 08/07/16 Time of Encounter: 07:29 Assessment and Plan (1) Sepsis Current Visit: Yes Status: Acute Qualifiers: Sepsis type: sepsis due to unspecified organism Qualified Code(s): A41.9 - Sepsis, unspecified organism (2) DVT prophylaxis Current Visit: Yes Status: Acute (3) Essential hypertension Current Visit: Yes Status: Acute (4) Intra-abdominal abscess Current Visit: Yes Status: Acute (5) Perforated appendicitis Current Visit: Yes Status: Acute (6) Septic shock Current Visit: Yes Status: Acute (7) Type 2 diabetes mellitus Current Visit: Yes Status: Acute Qualifiers: Diabetes mellitus complication status: without complication Diabetes mellitus intermodal customer service insulin use: without intermodal customer service use Qualified Code(s): E11.9 - Type 2 diabetes mellitus without complications Subjective Principal diagnosis: sepsis from perforated appendicitis Interval history: 40 y/o Male admitted for perforated appendicitis. Patient had to over night problems. He continues to have sharp pain in RLQ. He denies CP, SOB, nasuea, vomiting. Objective PUL Vital signs: Last Vital Signs Temp 98.1 F 08/07/16 04:10 Pulse 84 08/07/16 06:00 Resp 20 08/07/16 06:00 BP 121/73 08/07/16 06:00 Pulse Ox 98 08/07/16 06:13 General appearance: alert, appears uncomfortable Eyes: nonicteric ENT: oropharynx moist Mallampati (class): 3 Neck: no lymphadenopathy Effort: normal Auscultation: bilateral: clear Cardiovascular: regular rate and rhythm Gastrointestinal: absent bowel sounds, tender (Sharp pain RLQ with dull pain thorughout the abdomen) Integumentary: normal Extremities: no cyanosis (d), no edema normal mental status, pupils equal and round, CN II-XII normal mood appropriate Results - Laboratory Findings CBC and BMP: 08/07/16 04:47 08/07/16 04:47 PT/INR, D-dimer PT 13.7 Seconds (9.4-12.1) H 08/06/16 14:56 Abnormal lab findings: Abnormal lab results WBC 15.7 K/mcL (4.3-11.1) H 08/07/16 04:47 Hgb 11.3 g/dL (12.9-16.9) L 08/07/16 04:47 Hct 35.8 % (37.5-50.1) L 08/07/16 04:47 MCV 80.3 fL (83.0-100.0) L 08/07/16 04:47 MCH 25.3 pg (28.0-33.3) L 08/07/16 04:47 RDW 15.7 % (11.5-14.5) H 08/07/16 04:47 Neutrophils # 13.9 K/mcL (1.6-8.9) H 08/07/16 04:47 Lymphocytes # 0.5 K/mcL (0.6-4.6) L 08/07/16 04:47 Immature Plt Fraction 8.3 % (1.1-6.1) H 08/06/16 11:44 Poikilocytosis 1+ (Not Present) A 08/07/16 04:47 PT 13.7 Seconds (9.4-12.1) H 08/06/16 14:56 Sodium 134 mEq/L (136-145) L 08/07/16 04:47 Glucose 173 mg/dL (70-99) H 08/07/16 04:47 POC Glucose 160 (58-89) H 08/07/16 03:46 Calcium 8.4 mg/dL (8.6-10.8) L 08/07/16 04:47 Total Bilirubin 1.7 mg/dL (0.2-1.2) H 08/07/16 04:47 Direct Bilirubin 0.7 mg/dL (0.0-0.5) H 08/06/16 11:44 Serum Total Protein 5.9 g/dL (6.0-8.3) L 08/07/16 04:47 Albumin 2.3 g/dL (3.5-5.0) L 08/07/16 04:47 Globulin 3.6 g/dL (2.4-3.5) H 08/07/16 04:47 Albumin/Globulin Ratio 0.6 (1.1-2.2) L 08/07/16 04:47 Amylase 16 Units/L (25-125) L 08/06/16 11:44 Lipase 6 Units/L (8-78) L 08/06/16 11:44 Urine Clarity Cloudy (Clear) A 03/12/17 13:15 Ur Specific [place] 1.029 (1.010-1.025) H 08/06/16 13:15 Urine Protein 100 mg/dL (Neg-Trace) H 08/06/16 13:15 Urine Ketones 40 mg/dL (Negative) H 08/06/16 13:15 Urine Bilirubin Small (Negative) H 08/06/16 13:15 Urine Microscopic WBC 5-15 per hpf (0-3) H 08/06/16 13:15 Ur Squamous Epith Cells Many per lpf (None-Few) H 08/06/16 13:15 Ur Culture Indicated? YES (NO) A 08/06/16 13:15 - Diagnostic Findings Chest x-ray: report reviewed (L. sublcavian central line ) - Clinical Findings Intake & Output: Intake & Output 08/06/16 08/06/16 08/07/16 15:59 23:59 07:59 Intake Total 600 / 600 1400 / 1400 Output Total 425 / 425 525 / 525 Balance 175 / 175 875 / 875 Weight 160.889 kg Consult Discharge Plan - Plan Referrals: NO,PCP [Primary Care Provider] -
[2016-08-07] MEDS: Nicotine 21 MG PATCH.TD24 TD SCH (08:05)
[2016-08-07] MEDS ORDERED: Pantoprazole 40 MG VIAL IV SCH (09:00)
[2016-08-07] MEDS: Pantoprazole 40 MG VIAL IV SCH (10:09)
[2016-08-07] MEDS: *HR* HYDROmorphone (PF) 1 MG/ML SYRINGE IVP ONE (10:10)
[2016-08-07] MEDS ORDERED: D10% in Water 500 ML IV PRN ×2 (11:46→16:22)
[2016-08-07] MEDS ORDERED: Piperacillin/Tazobactam 3.375 GM in D5% in Water (Mini-Bag+) 100 ML IVPB SCH (13:07)
[2016-08-07] MEDS ORDERED: D5% in 0.9% NACL 1,000 ML IVC SCH ×2 (13:15→16:22)
--- NOTE | 2016-08-07 13:21 | General Surgery Progress Note ---
Date of Encounter: 08/07/16 Time of Encounter: 13:16 Subjective Patient reports: still having pain Narrative: Hospital day 1: Patient still complaining of pain; no nausea vomiting. Passing flatus. Maximum temperature through the night 100.7; currently 97.8. Tachycardia has improved, current pulse 79; respirations 20 Patient has remained hemodynamically stable; current blood pressure 128/76 Lungs: Clear, no longer complaining of pain in deep inspiration Abdomen: Tender in the right lower quadrant; my exam less tender in the left lower quadrant. Bowel sounds still absent Laboratories: White count has improved to 15.7; hemoglobin 11.3, hematocrit 35.8. Platelet count 228,000. Sodium 134, other electrolytes, BUN, creatinine within normal limits Serum protein has fallen to 5.9, albumin 2.3 Impression: Acute perforated appendicitis with persistent severe right lower quadrant abdominal pain - as expected Hyponatremia with no obvious symptoms The patient has remained hemodynamically stable overnight, will transfer to general surgical bed for continued care. Hypoproteinemia, calorie malnutrition is anticipated prolonged NPO state - will initiate TPN; discussed with Dietary. Objective Vital Signs - Last 8 Hours Temp Pulse Resp BP Pulse Ox 08/07/16 13:00 79 20 128/76 94 L 08/07/16 12:00 81 22 134/75 94 L 08/07/16 11:35 97.8 F 84 22 126/75 96 08/07/16 10:00 86 20 140/76 97 08/07/16 09:00 78 17 137/80 98 08/07/16 08:00 81 20 140/80 95 08/07/16 07:10 98.0 F 08/07/16 07:00 84 20 126/78 95 08/07/16 06:13 98 08/07/16 06:00 84 20 121/73 98 Intake and Output 08/06/16 08/07/16 08/07/16 23:59 07:59 15:59 Intake Total 600 / 600 1400 / 1400 1100 / 1100 Output Total 425 / 425 525 / 525 200 / 200 Balance 175 / 175 875 / 875 900 / 900 Intake: IV Fluids 600 / 600 1400 / 1400 1100 / 1100 0.9 % Sodium Chloride 1, 300 / 300 000 ML @ 3750 mls/hr IVC .Q16M [facility] Rx#:[id number] D5% And 0.9% Nacl 1000 Ml 1000 / 1000 1000 / 1000 1,000 ML @ 125 mls/hr IVC .Q8H [facility] Rx#: [id number] Ofirmev 1,000 mg In 100 100 / 100 200 / 200 100 / 100 ml @ 400 mls/hr IVPB Q6H [facility] Rx#:[id number] Flagyl 500 MG/100 ML 500 100 / 100 200 / 200 mg In 100 ml @ 100 mls/hr IVPB Q6HR [facility] Rx#: [id number] Zosyn 3.375 GM In 100 / 100 Dextrose 5% (Minibag+) 100 ML 100 ML @ 25 mls/hr IVPB Q8H [facility] Rx#: [id number] Oral 0 / 0 0 / 0 0 / 0 Output: Urine 425 / 425 525 / 525 200 / 200 Other: Weight 160.889 kg Blood Glucose* 137 160 138 Patient Weight 08/07/16 23:59 Weight 160.889 kg - Labs 08/07/16 04:47 08/07/16 04:47 Diabetes panel 08/07/16 Range/Units 04:47 Sodium 134 L (136-145) mEq/L Potassium 3.6 (3.5-4.5) mEq/L Chloride 105 (98-109) mEq/L Carbon Dioxide 25 (19-29) mEq/L BUN 9 (8-26) mg/dL Creatinine 0.85 (0.72-1.25) mg/dL Glucose 173 H (70-99) mg/dL Calcium 8.4 L (8.6-10.8) mg/dL AST 10 (5-34) Units/L ALT 12 (0-55) Units/L Alkaline Phosphatase 75 (38-126) Units/L Albumin 2.3 L (3.5-5.0) g/dL Calcium panel 08/07/16 Range/Units 04:47 Calcium 8.4 L (8.6-10.8) mg/dL Albumin 2.3 L (3.5-5.0) g/dL Pituitary panel 08/07/16 Range/Units 04:47 Sodium 134 L (136-145) mEq/L Potassium 3.6 (3.5-4.5) mEq/L Chloride 105 (98-109) mEq/L Carbon Dioxide 25 (19-29) mEq/L BUN 9 (8-26) mg/dL Creatinine 0.85 (0.72-1.25) mg/dL Glucose 173 H (70-99) mg/dL Calcium 8.4 L (8.6-10.8) mg/dL Adrenal panel 08/07/16 Range/Units 04:47 Sodium 134 L (136-145) mEq/L Potassium 3.6 (3.5-4.5) mEq/L Chloride 105 (98-109) mEq/L Carbon Dioxide 25 (19-29) mEq/L BUN 9 (8-26) mg/dL Creatinine 0.85 (0.72-1.25) mg/dL Glucose 173 H (70-99) mg/dL Calcium 8.4 L (8.6-10.8) mg/dL Total Bilirubin 1.7 H (0.2-1.2) mg/dL AST 10 (5-34) Units/L ALT 12 (0-55) Units/L Alkaline Phosphatase 75 (38-126) Units/L Albumin 2.3 L (3.5-5.0) g/dL Consult Discharge Plan - Plan Referrals: NO,PCP [Primary Care Provider] -
--- NOTE | 2016-08-07 15:32 | Electrocardiograph Report ---
[place] [id number] Test Date: 2016-08-06 Pat Name: Marc Dewey Department: 103 Room: 04 Gender: M Fashion Director: : 1975 Requested By: Colin Nails Order Number: [id number] Reading MD: Umang Camargo MD Measurements Intervals [place] Rate: 100 P: 24 [place]: 138 QRS: -21 QRSD: 101 T: 38 QT: 320 QTc: 377 Interpretive Statements SINUS TACHYCARDIA BORDERLINE LEFT AXIS DEVIATION INCOMPLETE RIGHT BUNDLE BRANCH BLOCK Poor R wave progression Electronically Signed On 08-07-2016 15:30:12 EDT by Umang Camargo MD
[2016-08-07] MEDS ORDERED: D5% in Water 1,000 ML IV PRN (16:22)
[2016-08-07] MEDS ORDERED: *HR* HYDROmorphone (PF) 1 MG/ML SYRINGE IVP PRN (16:22)
[2016-08-07] MEDS ORDERED: Dextrose Gel 15 GM PO PRN (16:22)
[2016-08-07] MEDS ORDERED: *HR* Dextrose 50 % in Water (Syg) 50 ML SYRINGE IVP PRN (16:22)
[2016-08-07] MEDS ORDERED: Clinimix E 5%-15% SOLUTION 2,000 ML with MVI, adult with vitamin K 10 ML IV SCH ×2 (17:00)
[2016-08-07] MEDS: Ondansetron 4 MG/2 ML VIAL IVP PRN (18:03)
[2016-08-07] MEDS: Piperacillin/Tazobactam 3.375 GM in D5% in Water (Mini-Bag+) 100 ML IVPB SCH (21:18)
[2016-08-08] MEDS: *HR* HYDROmorphone (PF) 1 MG/ML SYRINGE IVP PRN ×8 (00:31→18:55)
[2016-08-08] MEDS: MetroNIDAZOLE 500 MG/100 ML 500 MG/100 ML BAG IVPB SCH ×4 (00:36→17:15)
[2016-08-08] MEDS: Insulin LISPRO 300 UNITS/3 ML VIAL SQ SCH ×7 (00:41→20:54)
[2016-08-08] MEDS: Acetaminophen IV 1,000 MG/100 ML INFUS..BTL IVPB SCH ×4 (00:42→18:50)
[2016-08-08] MEDS: Ondansetron 4 MG/2 ML VIAL IVP PRN (00:53)
[2016-08-08] MEDS: Piperacillin/Tazobactam 3.375 GM in D5% in Water (Mini-Bag+) 100 ML IVPB SCH ×3 (05:25→20:53)
[2016-08-08 05:36] LABS: Basophils % 0.2 %; Eosinophils # 0.2 K/mcL (0.0-0.6); Eosinophils % 1.6 %; Hematocrit 34.9 % (37.5-50.1); Hemoglobin 11.1 g/dL (12.9-16.9); Immature Granulocytes % 0.4 % (0-4); Lymphocytes # 0.9 K/mcL (0.6-4.6); Lymphocytes % 6.1 %; Mean Corpuscular HGB Conc 31.8 g/dL (31.6-35.5); Mean Corpuscular Hemoglobin 25.5 pg (28.0-33.3); Mean Platelet Volume 10.5 fL (9.4-12.4); Monocytes % 6.9 %; Neutrophils # 11.9 K/mcL (1.6-8.9); Platelet Count 270 K/mcL (140-400); Red Blood Count 4.36 M/mcL (4.19-5.50); Red Cell Distribution Width 15.9 % (11.5-14.5); Segmented Neutrophils % 84.8 %
[2016-08-08 05:50] LABS: BUN/Creatinine Ratio 12 (6-26); Blood Urea Nitrogen 9 mg/dL (8-26); Calcium 8.2 mg/dL (8.6-10.8); Carbon Dioxide 26 mEq/L (19-29); Chloride 103 mEq/L (98-109); Glucose 153 mg/dL (70-99); Magnesium 1.9 mg/dL (1.6-2.6); Osmolality,Calculated 284 (280-300); Phosphorous 2.9 mg/dL (2.3-4.7); Potassium 3.6 mEq/L (3.5-4.5); Sodium 136 mEq/L (136-145); Triglycerides 182 mg/dL (< 150); eGFR For African Americans > 60 (> 60); eGFR For Non-African Americans > 60 (> 60)
[2016-08-08 06:02] LABS: Platelet Estimate Normal (Normal)
[2016-08-08] MEDS: Pantoprazole 40 MG VIAL IV SCH (08:38)
[2016-08-08] MEDS: Nicotine 21 MG PATCH.TD24 TD SCH (08:38)
[2016-08-08] MEDS ORDERED: Clinimix E 5%-15% SOLUTION 2,000 ML with MVI, adult with vitamin K 10 ML IV SCH (17:00)
[2016-08-08] MEDS ORDERED: Naloxone 0.4 MG/ML INJ IVP PRN (19:01)
[2016-08-08] MEDS ORDERED: *HR* HYDROmorphone 20 MG/20 ML PCA IVC PRN (19:01)
--- NOTE | 2016-08-08 19:11 | General Surgery Progress Note ---
Date of Encounter: 08/08/16 Time of Encounter: 19:05 Subjective Patient reports: still having pain Narrative: Hospital day 2: Patient is still complaining of pain but admits that it has now localized to the right lower quadrant. He is no longer tender in the LLQ. Patient continues to be afebrile, 98.5, pulse 88, respirations 16, blood pressure 135/81. Lungs: Clear to auscultation; no abdominal pain with deep inspiration Abdomen: Tender in the right lower quadrant but no further tenderness in the left lower quadrant; no referred pain from the left lower quadrant. Active bowel sounds. Patient states that he is passing copious flatus. The abdominal distention noted yesterday has improved/diminished. White count is improved to 14.0, hemoglobin stable at 11.1, hematocrit 34.9. Platelet count 270,000. Electrolytes - sodium 136, potassium 3.6, chloride 103, BUN 9, creatinine 0.75. Accu-Cheks 136-166 - acceptable control Urine output approximately 1600 mL the last 24 hours Impression: Acute perforated appendicitis with some persistent severe right lower quadrant abdominal pain. Left lower quadrant abdominal pain has resolved, the right lower quadrant abdominal pain is becoming more localized. It is consistent with the patient clinically improving. Hyponatremia - resolved Diabetes - stable Hypertension - stable Plan: Continue TPN as patient remains nothing by mouth Continue antibiotics as initiated on admission Diminish IV fluids Change Dilaudid to WELLNESS SPECIALIST for more effective pain control and greater patient comfort. Objective Vital Signs - Last 8 Hours Temp Pulse Resp BP Pulse Ox 08/08/16 15:40 98.5 F 88 16 135/81 96 08/08/16 11:31 98.5 F 84 18 113/65 94 L Intake and Output 08/08/16 08/08/16 08/08/16 07:59 15:59 23:59 Intake Total 500 / 500 340 / 340 100 / 100 Output Total 250 / 250 350 / 350 Balance 250 / 250 -10 / -10 100 / 100 Intake: IV Fluids 500 / 500 300 / 300 100 / 100 Ofirmev 1,000 mg In 100 200 / 200 100 / 100 ml @ 400 mls/hr IVPB Q6H [facility] Rx#:[id number] Flagyl 500 MG/100 ML 500 200 / 200 100 / 100 mg In 100 ml @ 100 mls/hr IVPB Q6HR [facility] Rx#: [id number] Zosyn 3.375 GM In 100 / 100 100 / 100 100 / 100 Dextrose 5% (Minibag+) 100 ML 100 ML @ 25 mls/hr IVPB Q8H [facility] Rx#: [id number] Oral 0 / 0 40 / 40 Output: Urine 250 / 250 350 / 350 Other: Meal NPO Dinner Weight 175.172 kg Blood Glucose* 166 136 Patient Weight 08/08/16 23:59 Weight 175.172 kg - Labs 08/08/16 04:57 08/08/16 04:57 Diabetes panel 08/08/16 Range/Units 04:57 Sodium 136 (136-145) mEq/L Potassium 3.6 (3.5-4.5) mEq/L Chloride 103 (98-109) mEq/L Carbon Dioxide 26 (19-29) mEq/L BUN 9 (8-26) mg/dL Creatinine 0.75 (0.72-1.25) mg/dL Glucose 153 H (70-99) mg/dL Calcium 8.2 L (8.6-10.8) mg/dL Triglycerides 182 H (< 150) mg/dL Calcium panel 08/08/16 Range/Units 04:57 Calcium 8.2 L (8.6-10.8) mg/dL Phosphorus 2.9 (2.3-4.7) mg/dL Pituitary panel 08/08/16 Range/Units 04:57 Sodium 136 (136-145) mEq/L Potassium 3.6 (3.5-4.5) mEq/L Chloride 103 (98-109) mEq/L Carbon Dioxide 26 (19-29) mEq/L BUN 9 (8-26) mg/dL Creatinine 0.75 (0.72-1.25) mg/dL Glucose 153 H (70-99) mg/dL Calcium 8.2 L (8.6-10.8) mg/dL Adrenal panel 08/08/16 Range/Units 04:57 Sodium 136 (136-145) mEq/L Potassium 3.6 (3.5-4.5) mEq/L Chloride 103 (98-109) mEq/L Carbon Dioxide 26 (19-29) mEq/L BUN 9 (8-26) mg/dL Creatinine 0.75 (0.72-1.25) mg/dL Glucose 153 H (70-99) mg/dL Calcium 8.2 L (8.6-10.8) mg/dL - VTE Documentation of Mechanical Device: Intermittent pneumatic compression device Consult Discharge Plan - Plan Referrals: NO,PCP [Primary Care Provider] - (Patient has a primary physician in [place], and will make his own appt. when he returns home. He will be staying in [place] for awhile, so not sure when he will be returning. Offered to find him a primary here, and he does not want one at this time. Thank you)
[2016-08-08] MEDS: 0.9 % Sodium Chloride 1,000 ML IVC SCH (20:33)
[2016-08-09] MEDS: MetroNIDAZOLE 500 MG/100 ML 500 MG/100 ML BAG IVPB SCH ×4 (00:18→17:26)
[2016-08-09] MEDS: Insulin LISPRO 300 UNITS/3 ML VIAL SQ SCH ×6 (00:28→20:54)
[2016-08-09] MEDS: Piperacillin/Tazobactam 3.375 GM in D5% in Water (Mini-Bag+) 100 ML IVPB SCH ×3 (05:29→20:55)
[2016-08-09 05:37] LABS: Basophils # 0.1 K/mcL (0.0-0.2); Basophils % 0.5 %; Eosinophils # 0.3 K/mcL (0.0-0.6); Eosinophils % 1.6 %; Hematocrit 34.1 % (37.5-50.1); Hemoglobin 10.7 g/dL (12.9-16.9); Lymphocytes # 0.9 K/mcL (0.6-4.6); Lymphocytes % 6.1 %; Mean Corpuscular HGB Conc 31.4 g/dL (31.6-35.5); Mean Corpuscular Hemoglobin 25.1 pg (28.0-33.3); Mean Platelet Volume 10.8 fL (9.4-12.4); Monocytes # 1.5 K/mcL (0.0-1.3); Monocytes % 9.4 %; Neutrophils # 12.5 K/mcL (1.6-8.9); Platelet Count 317 K/mcL (140-400); Red Blood Count 4.26 M/mcL (4.19-5.50); Red Cell Distribution Width 16.4 % (11.5-14.5); Segmented Neutrophils % 81.4 %
[2016-08-09 05:48] LABS: BUN/Creatinine Ratio 13 (6-26); Blood Urea Nitrogen 9 mg/dL (8-26); Calcium 8.2 mg/dL (8.6-10.8); Carbon Dioxide 28 mEq/L (19-29); Chloride 102 mEq/L (98-109); Glucose 183 mg/dL (70-99); Magnesium 1.6 mg/dL (1.6-2.6); Osmolality,Calculated 289 (280-300); Phosphorous 3.5 mg/dL (2.3-4.7); Potassium 3.6 mEq/L (3.5-4.5); Sodium 138 mEq/L (136-145); eGFR For African Americans > 60 (> 60); eGFR For Non-African Americans > 60 (> 60)
[2016-08-09] MEDS: Nicotine 21 MG PATCH.TD24 TD SCH (08:33)
[2016-08-09] MEDS: Pantoprazole 40 MG VIAL IV SCH (08:33)
[2016-08-09] MEDS: Ondansetron 4 MG/2 ML VIAL IVP PRN (12:08)
[2016-08-09] MEDS ORDERED: Clinimix E 5%-15% SOLUTION 2,000 ML with MVI, adult with vitamin K 10 ML IV SCH (17:00)
--- NOTE | 2016-08-09 19:00 | General Surgery Progress Note ---
Date of Encounter: 08/09/16 Time of Encounter: 18:53 Subjective Patient reports: no new complaints, still having pain Narrative: Hospital day 3: Patient voicing no new complaints, still complaining of pain, primarily localized to the lower quadrant. Nursing reports some confusion, disorientation - possibly due to MEDICAL FEE CLERK Dilaudid. The patient remains afebrile, 98.7, pulse 89, respirations 18, blood pressure stable 146/84 Lungs: Clear, no obvious abdominal pain with deep inspiration Abdomen: Obese, tender in the right lower quadrant as expected. 2 bowel sounds. The patient reports passing flatus White count increased from 14.0 to 15.4; hemoglobin 10.7, hematocrit 34.1; platelet count count 317,000 Electrolytes, BUN, creatinine within normal limits Accu-Cheks 163, most recent 198 Impression: Hospital day 3, acute perforated appendicitis. Increased leukocytosis concerning - repeat CT abd/pelvis in AM possible confusion (per Nursing ) - will reduce MEDICAL FEE CLERK dilaudid. Check CBC and comprehensive metabolic profile. Continue TPN while patient remains NPO anemia - likely due to dilution and acute intra abdominal disease Objective Vital Signs - Last 8 Hours Temp Pulse Resp BP Pulse Ox 08/09/16 16:03 98.7 F 89 18 146/84 93 L 08/09/16 11:48 98.7 F 87 18 137/81 93 L Intake and Output 08/09/16 08/09/16 08/09/16 07:59 15:59 23:59 Intake Total 300 / 300 200 / 200 100 / 100 Output Total 500 / 500 350 / 350 Balance -200 / -200 200 / 200 -250 / -250 Intake: IV Fluids 300 / 300 200 / 200 100 / 100 Flagyl 500 MG/100 ML 500 200 / 200 100 / 100 mg In 100 ml @ 100 mls/hr IVPB Q6HR [facility] Rx#: [id number] Zosyn 3.375 GM In 100 / 100 100 / 100 100 / 100 Dextrose 5% (Minibag+) 100 ML 100 ML @ 25 mls/hr IVPB Q8H [facility] Rx#: [id number] Oral 0 / 0 0 / 0 Output: Urine 500 / 500 350 / 350 Other: Meal NPO NPO Blood Glucose* 163 163 198 - Labs 08/09/16 04:00 08/09/16 04:00 Diabetes panel 08/09/16 Range/Units 04:00 Sodium 138 (136-145) mEq/L Potassium 3.6 (3.5-4.5) mEq/L Chloride 102 (98-109) mEq/L Carbon Dioxide 28 (19-29) mEq/L BUN 9 (8-26) mg/dL Creatinine 0.69 L (0.72-1.25) mg/dL Glucose 183 H (70-99) mg/dL Calcium 8.2 L (8.6-10.8) mg/dL Calcium panel 08/09/16 Range/Units 04:00 Calcium 8.2 L (8.6-10.8) mg/dL Phosphorus 3.5 (2.3-4.7) mg/dL Pituitary panel 08/09/16 Range/Units 04:00 Sodium 138 (136-145) mEq/L Potassium 3.6 (3.5-4.5) mEq/L Chloride 102 (98-109) mEq/L Carbon Dioxide 28 (19-29) mEq/L BUN 9 (8-26) mg/dL Creatinine 0.69 L (0.72-1.25) mg/dL Glucose 183 H (70-99) mg/dL Calcium 8.2 L (8.6-10.8) mg/dL Adrenal panel 08/09/16 Range/Units 04:00 Sodium 138 (136-145) mEq/L Potassium 3.6 (3.5-4.5) mEq/L Chloride 102 (98-109) mEq/L Carbon Dioxide 28 (19-29) mEq/L BUN 9 (8-26) mg/dL Creatinine 0.69 L (0.72-1.25) mg/dL Glucose 183 H (70-99) mg/dL Calcium 8.2 L (8.6-10.8) mg/dL - VTE Documentation of Mechanical Device: Intermittent pneumatic compression device Consult Discharge Plan - Plan Referrals: NO,PCP [Primary Care Provider] - (Patient has a primary physician in [place], and will make his own appt. when he returns home. He will be staying in [place] for awhile, so not sure when he will be returning. Offered to find him a primary here, and he does not want one at this time. Thank you)
[2016-08-09] MEDS: 0.9 % Sodium Chloride 1,000 ML IVC SCH (20:55)
[2016-08-10] MEDS: Ondansetron 4 MG/2 ML VIAL IVP PRN ×3 (00:08→18:45)
[2016-08-10] MEDS: Insulin LISPRO 300 UNITS/3 ML VIAL SQ SCH ×6 (04:08→20:43)
[2016-08-10] MEDS: Piperacillin/Tazobactam 3.375 GM in D5% in Water (Mini-Bag+) 100 ML IVPB SCH ×3 (05:27→20:45)
[2016-08-10 05:49] LABS: Basophils # 0.1 K/mcL (0.0-0.2); Basophils % 0.5 %; Eosinophils # 0.1 K/mcL (0.0-0.6); Eosinophils % 0.5 %; Hemoglobin 11.2 g/dL (12.9-16.9); Immature Granulocytes % 1.6 % (0-4); Lymphocytes # 0.9 K/mcL (0.6-4.6); Lymphocytes % 4.7 %; Mean Corpuscular Hemoglobin 25.7 pg (28.0-33.3); Mean Corpuscular Volume 80.5 fL (83.0-100.0); Mean Platelet Volume 10.6 fL (9.4-12.4); Monocytes # 1.9 K/mcL (0.0-1.3); Monocytes % 9.3 %; Neutrophils # 16.6 K/mcL (1.6-8.9); Platelet Count 352 K/mcL (140-400); Red Blood Count 4.35 M/mcL (4.19-5.50); Red Cell Distribution Width 16.7 % (11.5-14.5); Segmented Neutrophils % 83.4 %
[2016-08-10 05:55] LABS: Alanine Aminotransferase 14 Units/L (0-55); Albumin 2.1 g/dL (3.5-5.0); Albumin/Globulin Ratio 0.5 (1.1-2.2); Alkaline Phosphatase 107 Units/L (38-126); Aspartate Amino Transferase 12 Units/L (5-34); BUN/Creatinine Ratio 15 (6-26); Bilirubin,Total 0.8 mg/dL (0.2-1.2); Blood Urea Nitrogen 11 mg/dL (8-26); Calcium 8.2 mg/dL (8.6-10.8); Carbon Dioxide 30 mEq/L (19-29); Chloride 100 mEq/L (98-109); Glucose 191 mg/dL (70-99); Osmolality,Calculated 289 (280-300); Potassium 3.6 mEq/L (3.5-4.5); Sodium 137 mEq/L (136-145); Total Protein 6.1 g/dL (6.0-8.3); eGFR For African Americans > 60 (> 60); eGFR For Non-African Americans > 60 (> 60)
[2016-08-10] MEDS: MetroNIDAZOLE 500 MG/100 ML 500 MG/100 ML BAG IVPB SCH ×4 (06:04→18:21)
[2016-08-10 06:57] LABS: BUN/Creatinine Ratio 15 (6-26); Blood Urea Nitrogen 11 mg/dL (8-26); Calcium 8.7 mg/dL (8.6-10.8); Carbon Dioxide 27 mEq/L (19-29); Chloride 100 mEq/L (98-109); Glucose 187 mg/dL (70-99); Magnesium 1.7 mg/dL (1.6-2.6); Osmolality,Calculated 288 (280-300); Phosphorous 4.1 mg/dL (2.3-4.7); Potassium 3.7 mEq/L (3.5-4.5); Sodium 137 mEq/L (136-145); eGFR For African Americans > 60 (> 60); eGFR For Non-African Americans > 60 (> 60)
[2016-08-10] MEDS: *HR* HYDROmorphone 20 MG/20 ML PCA IVC PRN (08:48)
[2016-08-10] MEDS: Pantoprazole 40 MG VIAL IV SCH (09:04)
[2016-08-10] MEDS: Nicotine 21 MG PATCH.TD24 TD SCH (09:05)
[2016-08-10] MEDS ORDERED: Clinimix E 5%-15% SOLUTION 2,000 ML with MVI, adult with vitamin K 10 ML IV SCH ×2 (17:00→19:00)
--- NOTE | 2016-08-10 18:05 | General Surgery Progress Note ---
Date of Encounter: 08/10/16 Time of Encounter: 17:53 Subjective Patient reports: still having pain Narrative: Hospital day 4: Patient agitated to contact with hospital personnel regarding ongoing care and potential discharge home. Patient complaining of pain, reducing LEGAL ADVISER dosage of Dilaudid has resulted in less confusion. The patient remains afebrile, 98.4, maximum temperature 99.4 in the last 24 hours; pulse 83, respirations 18, blood pressure 142/84 CT abdomen and pelvis completed this morning demonstrates persistent abnormal inflammatory changes involving and surrounding the appendix, adjacent cecum, and small bowel loops. Tiny foci of free air described. These are increased. Her prior CT. Excision at the tip of the appendix also appears larger at 4.3 x 2.7 cm. These findings correspond to the increased leukocytosis noted over the last 48 hours. Depsite these changes, the patient remains hemodynamically stable. Accu-Cheks for this calendar day 160-189. Accu-Cheks 148-198 Lungs: Clear to auscultation Abdomen remains tender in the right lower quadrant. Impression: acute perforated appendicitis. Hospital #4 - CT shows enlargement of the inflammation RLQ and around the appendix. The inflammation is still diffuse with no "drainable" collections or abscess. If surgery completed today (or in the near future), the patient would require resection of the involved bowel with ileostomy/colostomy. This may become necessary if the patient's condition deteriorates but, at present, it remains reasonable to continue aggressive ATB therapy and TPN. Discussed in depth and detail with patient and his . T Objective Vital Signs - Last 8 Hours Temp Pulse Resp BP Pulse Ox 08/10/16 16:01 98.4 F 83 20 142/84 94 L 08/10/16 11:00 98.9 F 83 20 138/81 95 Intake and Output 08/10/16 08/10/16 08/10/16 07:59 15:59 23:59 Intake Total 450 / 450 200 / 200 Output Total 0 / 0 500 / 500 Balance 450 / 450 -300 / -300 Intake: IV Fluids 450 / 450 200 / 200 Intralipid 20% 250 ML @ 250 / 250 21 mls/hr IVPB [facility]@ [facility] Rx#:[id number] Flagyl 500 MG/100 ML 500 100 / 100 100 / 100 mg In 100 ml @ 100 mls/hr IVPB Q6HR [facility] Rx#: [id number] Zosyn 3.375 GM In 100 / 100 100 / 100 Dextrose 5% (Minibag+) 100 ML 100 ML @ 25 mls/hr IVPB Q8H [facility] Rx#: [id number] Oral 0 / 0 0 / 0 Output: Urine 0 / 0 500 / 500 Other: Meal NPO Percent of Meal Consumed 0% # Voids 1 Blood Glucose* 189 160 149 - Labs 08/10/16 03:41 08/10/16 03:41 Diabetes panel 08/10/16 08/10/16 Range/Units 03:41 03:41 Sodium 137 137 (136-145) mEq/L Potassium 3.7 3.6 (3.5-4.5) mEq/L Chloride 100 100 (98-109) mEq/L Carbon Dioxide 27 30 H (19-29) mEq/L BUN 11 11 (8-26) mg/dL Creatinine 0.73 0.75 (0.72-1.25) mg/dL Glucose 187 H 191 H (70-99) mg/dL Calcium 8.7 8.2 L (8.6-10.8) mg/dL AST 12 (5-34) Units/L ALT 14 (0-55) Units/L Alkaline Phosphatase 107 (38-126) Units/L Albumin 2.1 L (3.5-5.0) g/dL Calcium panel 08/10/16 08/10/16 Range/Units 03:41 03:41 Calcium 8.7 8.2 L (8.6-10.8) mg/dL Phosphorus 4.1 (2.3-4.7) mg/dL Albumin 2.1 L (3.5-5.0) g/dL Pituitary panel 08/10/16 08/10/16 Range/Units 03:41 03:41 Sodium 137 137 (136-145) mEq/L Potassium 3.7 3.6 (3.5-4.5) mEq/L Chloride 100 100 (98-109) mEq/L Carbon Dioxide 27 30 H (19-29) mEq/L BUN 11 11 (8-26) mg/dL Creatinine 0.73 0.75 (0.72-1.25) mg/dL Glucose 187 H 191 H (70-99) mg/dL Calcium 8.7 8.2 L (8.6-10.8) mg/dL Adrenal panel 08/10/16 08/10/16 Range/Units 03:41 03:41 Sodium 137 137 (136-145) mEq/L Potassium 3.7 3.6 (3.5-4.5) mEq/L Chloride 100 100 (98-109) mEq/L Carbon Dioxide 27 30 H (19-29) mEq/L BUN 11 11 (8-26) mg/dL Creatinine 0.73 0.75 (0.72-1.25) mg/dL Glucose 187 H 191 H (70-99) mg/dL Calcium 8.7 8.2 L (8.6-10.8) mg/dL Total Bilirubin 0.8 D (0.2-1.2) mg/dL AST 12 (5-34) Units/L ALT 14 (0-55) Units/L Alkaline Phosphatase 107 (38-126) Units/L Albumin 2.1 L (3.5-5.0) g/dL - VTE Documentation of Mechanical Device: Intermittent pneumatic compression device Consult Discharge Plan - Plan Referrals: NO,PCP [Primary Care Provider] - (Patient has a primary physician in [place], and will make his own appt. when he returns home. He will be staying in [place] for awhile, so not sure when he will be returning. Offered to find him a primary here, and he does not want one at this time. Thank you)
[2016-08-10] MEDS: 0.9 % Sodium Chloride 1,000 ML IVC SCH (20:44)
[2016-08-11] MEDS: MetroNIDAZOLE 500 MG/100 ML 500 MG/100 ML BAG IVPB SCH ×5 (00:42→23:53)
[2016-08-11] MEDS: Insulin LISPRO 300 UNITS/3 ML VIAL SQ SCH ×7 (00:42→23:56)
[2016-08-11 04:13] LABS: Basophils # 0.1 K/mcL (0.0-0.2); Basophils % 0.5 %; Eosinophils # 0.1 K/mcL (0.0-0.6); Eosinophils % 0.6 %; Hematocrit 33.8 % (37.5-50.1); Lymphocytes # 1.2 K/mcL (0.6-4.6); Lymphocytes % 5.7 %; Mean Corpuscular Hemoglobin 25.8 pg (28.0-33.3); Mean Corpuscular Volume 80.9 fL (83.0-100.0); Monocytes # 1.8 K/mcL (0.0-1.3); Monocytes % 8.2 %; Neutrophils # 17.8 K/mcL (1.6-8.9); Platelet Count 337 K/mcL (140-400); Red Blood Count 4.18 M/mcL (4.19-5.50); Red Cell Distribution Width 16.7 % (11.5-14.5)
[2016-08-11 04:26] LABS: Hemoglobin 10.8 g/dL (12.9-16.9)
[2016-08-11] MEDS: Piperacillin/Tazobactam 3.375 GM in D5% in Water (Mini-Bag+) 100 ML IVPB SCH ×3 (04:55→21:17)
[2016-08-11 05:23] LABS: BUN/Creatinine Ratio 16 (6-26); Blood Urea Nitrogen 12 mg/dL (8-26); Calcium 8.5 mg/dL (8.6-10.8); Carbon Dioxide 30 mEq/L (19-29); Chloride 98 mEq/L (98-109); Glucose 181 mg/dL (70-99); Magnesium 1.8 mg/dL (1.6-2.6); Osmolality,Calculated 286 (280-300); Phosphorous 3.7 mg/dL (2.3-4.7); Potassium 3.8 mEq/L (3.5-4.5); Sodium 136 mEq/L (136-145); eGFR For African Americans > 60 (> 60); eGFR For Non-African Americans > 60 (> 60)
[2016-08-11] MEDS: Nicotine 21 MG PATCH.TD24 TD SCH (08:30)
[2016-08-11] MEDS: Pantoprazole 40 MG VIAL IV SCH (08:31)
[2016-08-11] MEDS: *HR* HYDROmorphone 20 MG/20 ML PCA IVC PRN (08:56)
[2016-08-11] MEDS: Ondansetron 4 MG/2 ML VIAL IVP PRN ×2 (12:39→21:25)
[2016-08-11] MEDS ORDERED: Clinimix E 5%-15% SOLUTION 2,000 ML with MVI, adult with vitamin K 10 ML IV SCH (17:00)
--- NOTE | 2016-08-11 19:08 | General Surgery Progress Note ---
Date of Encounter: 08/11/16 Time of Encounter: 19:02 Subjective Narrative: Hospital day 5: Patient complaining of increased right lower quadrant abdominal pain, leukocytosis continues to increase, 21.4; maximum temperature 99.8. The patient describes diaphoresis last pm. Other vital signs stable, pulse 80-87; respirations 18, blood pressure stable at 128/63. Lungs: Clear to auscultation no obvious increased abdominal pain with deep inspiration. Abdomen: Obese, persistent tenderness right lower quadrant. The discernible intra-abdominal masses. The patient's exam is limited by his body habitus but, to my exam, no obvious increase in abdominal pain. Impression: Based on patient's complaints, increased leukocytosis and recent CT findings it appears that the patient is failing medical management. I have discussed this at length with the patient and his ; surgery is planned for the am. The surgical risks were discussed in detail - they include hemorrhage, infection, recurrent abscess, due to adjacent structures. The possibility of a ileostomy/colostomy was discussed in in detail. Both the patient and his expressed understanding. The patient is aware that his obesity is a significant risk factor for this surgery. Objective Vital Signs - Last 8 Hours Temp Pulse Resp BP Pulse Ox 08/11/16 14:47 98.6 F 80 18 128/63 92 L 08/11/16 13:30 98.0 F 83 17 123/73 95 08/11/16 12:29 98.2 F 77 18 134/71 97 Intake and Output 08/11/16 08/11/16 08/11/16 07:59 15:59 23:59 Intake Total 1030 / 1030 100 / 100 200 / 200 Output Total 465 / 465 650 / 650 300 / 300 Balance 565 / 565 -550 / -550 -100 / -100 Intake: IV Fluids 1030 / 1030 100 / 100 200 / 200 Clinimix E 5%-15% 730 / 730 SOLUTION 2,000 ML @ 83.3 mls/hr IV .Q24H [facility] with M.v.i. Adult 10 ml Rx#: [id number] Flagyl 500 MG/100 ML 500 200 / 200 100 / 100 mg In 100 ml @ 100 mls/hr IVPB Q6HR [facility] Rx#: [id number] Zosyn 3.375 GM In 100 / 100 100 / 100 100 / 100 Dextrose 5% (Minibag+) 100 ML 100 ML @ 25 mls/hr IVPB Q8H [facility] Rx#: [id number] Oral 0 / 0 0 / 0 0 / 0 Output: Urine 465 / 465 650 / 650 300 / 300 Other: Meal NPO # Voids 1 Weight 176.2 kg Blood Glucose* 163 177 150 Patient Weight 08/11/16 23:59 Weight 176.2 kg - Labs 08/11/16 03:50 08/11/16 03:50 Diabetes panel 08/11/16 Range/Units 03:50 Sodium 136 (136-145) mEq/L Potassium 3.8 (3.5-4.5) mEq/L Chloride 98 (98-109) mEq/L Carbon Dioxide 30 H (19-29) mEq/L BUN 12 (8-26) mg/dL Creatinine 0.75 (0.72-1.25) mg/dL Glucose 181 H (70-99) mg/dL Calcium 8.5 L (8.6-10.8) mg/dL Calcium panel 08/11/16 Range/Units 03:50 Calcium 8.5 L (8.6-10.8) mg/dL Phosphorus 3.7 (2.3-4.7) mg/dL Pituitary panel 08/11/16 Range/Units 03:50 Sodium 136 (136-145) mEq/L Potassium 3.8 (3.5-4.5) mEq/L Chloride 98 (98-109) mEq/L Carbon Dioxide 30 H (19-29) mEq/L BUN 12 (8-26) mg/dL Creatinine 0.75 (0.72-1.25) mg/dL Glucose 181 H (70-99) mg/dL Calcium 8.5 L (8.6-10.8) mg/dL Adrenal panel 08/11/16 Range/Units 03:50 Sodium 136 (136-145) mEq/L Potassium 3.8 (3.5-4.5) mEq/L Chloride 98 (98-109) mEq/L Carbon Dioxide 30 H (19-29) mEq/L BUN 12 (8-26) mg/dL Creatinine 0.75 (0.72-1.25) mg/dL Glucose 181 H (70-99) mg/dL Calcium 8.5 L (8.6-10.8) mg/dL - VTE Documentation of Mechanical Device: Intermittent pneumatic compression device Consult Discharge Plan - Plan Referrals: NO,PCP [Primary Care Provider] - (Patient has a primary physician in [place], and will make his own appt. when he returns home. He will be staying in [place] for awhile, so not sure when he will be returning. Offered to find him a primary here, and he does not want one at this time. Thank you)
[2016-08-12] MEDS: Piperacillin/Tazobactam 3.375 GM in D5% in Water (Mini-Bag+) 100 ML IVPB SCH ×2 (04:58→20:03)
[2016-08-12] MEDS: MetroNIDAZOLE 500 MG/100 ML 500 MG/100 ML BAG IVPB SCH ×3 (04:59→23:49)
[2016-08-12] MEDS: Insulin LISPRO 300 UNITS/3 ML VIAL SQ SCH ×6 (05:04→23:50)
--- NOTE | 2016-08-12 07:26 | Anesthesia Evaluation PreOp ---
Date of Encounter: 08/12/16 Time of Encounter: 07:30 - Past History Planned Operation: Exploratory Lap Cardiac History: HTN Pulmonary History: Smoker BANQUET STEWARDESS History: Denies Any Significant HX Other Medical History: Diabetes Type II, Other (MO) Anesthesia History: No Prior Anesthetic Complications Alcohol Use: occasionally Drug use: none Medications and Allergies Albuterol Sulfate [Ventolin Hfa] 2 puff IH Q4H PRN 08/06/16 [History] Ferrous Gluconate 324 mg PO DAILY 08/06/16 [History] Lisinopril [Zestril] 20 mg PO DAILY 08/06/16 [History] Metformin [Glucophage] 500 mg PO QPM 08/06/16 [History] Metformin [Glucophage] 850 mg PO QAM 08/06/16 [History] Mv-Mn/FA/Vit K/Lycop/Lut/Coq10 [Daily Multivitamin Capsule] 1 cap PO DAILY 08/06 [History] Allergies sulfamethoxazole [From Bactrim] Adverse Reaction (Verified 08/06/16 11:15) Nausea trimethoprim [From Bactrim] Adverse Reaction (Verified 08/06/16 11:15) Nausea - Meds/Allergy Pre-op Review Medications Reviewed: Yes Allergies Reviewed: Yes Beta Blockers on Current Med List: No Anesthesia Results - Labs 08/11/16 03:50 08/11/16 03:50 - Imaging EKG: report reviewed (Sinus Tach) Anesthesia Exam O2 Sat Weight 176.4 kg O2 Sat by Pulse Oximetry 91 O2 Sat by Pulse Oximetry 93 O2 Sat by Pulse Oximetry 93 O2 Sat by Pulse Oximetry 93 O2 Sat by Pulse Oximetry 92 O2 Sat by Pulse Oximetry 95 O2 Sat by Pulse Oximetry 97 O2 Sat by Pulse Oximetry 96 O2 Sat by Pulse Oximetry 86 O2 Sat by Pulse Oximetry 93 Vital Signs Temp Pulse Resp BP Pulse Ox 99.3 F 100 16 142/71 96 08/06/16 11:15 08/06/16 11:15 08/06/16 11:15 08/06/16 11:15 08/06/16 11:15 Height: 5'11 Weight: 388 lbs NPO (# of Hours): MN Pain Scale: 0 - HEENT Pupil (Motor): Pupils equal, EOMI Mallampati: III Oral Opening: Less than or equal to 3 - BANQUET STEWARDESS LOC: Oriented BANQUET STEWARDESS Motor: Normal RUE, Normal LUE, Normal RLE, Normal LLE, Normal Face BANQUET STEWARDESS Sensory: Normal: RUE, LUE, RLE, LLE, Face - Cardiac Rhythm: Regular Murmur: None JVD: No Carotid Bruit: No - Pulmonary Breath Sounds: bilateral Clear Respiratory Effort: Symmetrical Anesthesia Assess/Plan ASA Score: 3 (MO HTN DM Tobacco) Modified Holly Scale for Level of Consciousness: Cooperative, oriented, and tranquil Anesthetic Plan: General Monitoring Plan: Standard Monitors Recovery Plan: PACU (Discussed GA, agrees to proceed)
[2016-08-12] MEDS ORDERED: *HR* FentaNYL (PF) 100 MCG/2 ML VIAL ONE (07:29)
[2016-08-12] MEDS ORDERED: *HR* HYDROmorphone 2 MG/ML SYRINGE ONE (07:29)
[2016-08-12] MEDS ORDERED: *HR* Propofol 200 MG/20 ML VIAL IVP ONE (07:29)
[2016-08-12] MEDS ORDERED: *HR* Succinylcholine 200 MG/10 ML VIAL IVP ONE (07:30)
[2016-08-12] MEDS ORDERED: *HR* Rocuronium Bromide 50 MG/5 ML VIAL ONE ×2 (07:30→08:41)
[2016-08-12] MEDS ORDERED: Ondansetron 4 MG/2 ML VIAL ONE (07:30)
[2016-08-12] MEDS ORDERED: Lidocaine -MPF 2% 2 ML VIAL ONE (07:30)
[2016-08-12] MEDS ORDERED: Albuterol 2.5 MG/3 ML NEBULIZER ONE (07:38)
[2016-08-12] MEDS ORDERED: Famotidine 20 MG/2 ML VIAL ONE (07:46)
[2016-08-12] MEDS ORDERED: *HR* HYDROmorphone (PF) 1 MG/ML SYRINGE IVP PRN (09:18)
[2016-08-12] MEDS ORDERED: Ondansetron 4 MG/2 ML VIAL IVP ONE (09:18)
[2016-08-12] MEDS ORDERED: Neostigmine Methylsulfate 3 MG/3 ML SYRINGE ONE (10:05)
[2016-08-12] MEDS ORDERED: Ketorolac 30 MG/ML VIAL ONE (10:46)
[2016-08-12] MEDS: Pantoprazole 40 MG VIAL IV SCH (11:21)
[2016-08-12] MEDS: Nicotine 21 MG PATCH.TD24 TD SCH (11:21)
--- NOTE | 2016-08-12 11:52 | Anesthesia Evaluation Post Op ---
Date of Encounter: 08/12/16 Time of Encounter: 11:35 - Vital Signs Vital Signs: Vital Signs/O2 Sat/Glucose, Most Current Temp Pulse Resp BP Pulse Ox 08/12/16 11:26 97.0 F L 82 16 154/69 94 L 08/12/16 11:16 80 16 135/69 96 08/12/16 11:06 77 18 137/66 96 08/12/16 10:56 97.5 F L 85 18 133/73 91 L - Lungs Lungs: Clear Ascult./Percussion - Airway Airway: Non-obstructed - Cardiovascular Regular Rate - Mental Status Mental Status: Alert & Oriented, Answers Appropriately - Pain Pain Scale: 1 - Nausea Vomiting Nausea Vomiting: Not Present - Hydration Hydration: NPO - Discharge PostOp Status: Transfer Patient to floor
[2016-08-12] MEDS ORDERED: D10% in Water 500 ML IV PRN (12:02)
[2016-08-12] MEDS ORDERED: Naloxone 0.4 MG/ML INJ IVP PRN (12:02)
[2016-08-12] MEDS ORDERED: D5% in Water 1,000 ML IV PRN (12:02)
[2016-08-12] MEDS ORDERED: Clinimix E 5%-15% SOLUTION 2,000 ML with MVI, adult with vitamin K 10 ML IV SCH ×2 (12:02→17:00)
[2016-08-12] MEDS ORDERED: Dextrose Gel 15 GM PO PRN (12:02)
[2016-08-12] MEDS ORDERED: *HR* HYDROmorphone 20 MG/20 ML PCA IVC PRN (12:02)
[2016-08-12] MEDS ORDERED: *HR* Dextrose 50 % in Water (Syg) 50 ML SYRINGE IVP PRN (12:02)
[2016-08-12] MEDS: 0.9 % Sodium Chloride 1,000 ML IVC SCH ×2 (13:22→20:04)
--- NOTE | 2016-08-12 13:58 | Operative Note ---
Date of procedure: 08/12/16 Pre-op diagnosis: acute perforated appendicitis with migdalia colic abscess Post-op diagnosis: same Procedure: exploratory celiotomy, drainage intra abdominal abscess. appendectomy Complications: none apparent Anesthesia: FELICITY Surgeon: Anibal Pack Gift Shop Manager: Na Melo Estimated blood loss (cc): 200 IV fluids (cc): 2,000 Specimen: appendix, aerobic and anaerobic cultures Condition: stable Disposition: PACU Procedure in Detail: Brief history: 40-year-old male admitted, 08/06/16, after presenting to the emergency department with diffuse abdominal pain and radiologic evidence of acute perforated appendicitis. The treatment plan was management o fhe acute inflammatory process , allowing for an interval appendectomy in approximatedly 6 weeks. The patient was admitted, kept NPO, and IV ATB were administered. TPN was initiated as it was anticipated the patient would be unable to eat for a prolonged period of time. The patient improved over the first few days of care but then began to complain of increasing abdominal pain, The white count increased and accuchecks demonstrated increase in blood sugars. Surgery was deemed necessary. Technique: The patient was brought to the operating room, where he was placed supine upon the operating room table. The patient was appropriately identified as to person and procedure. The accuracy of this information was confirmed by the procedure team. The patient was intubated and anesthetized under the supervision of Dr Ricci Abrams. An OG tube was placed. A Chau catheter was inserted. The abdomen was prepped and draped in usual sterile fashion. A midline incision was created from the umbilicus to the symphysis pubis. The incision was extended through the subcutaneous tissue with bleeding points controlled with electrocautery. The fascia was divided in the midline. The abdomen was entered atraumatically. Exposure was facilitated with a self- retaining Omni tract retractor. The abdomen was explored demonstrating the expected induration and thickening in the right lower quadrant. The lateral peritoneal reflection was incised entering a large abscess cavity at the proximal tip of the cecum. Aerobic and anaerobic cultures of this fluid were obtained. The pus was evacuated with a suction device. The terminal ileum was acutely inflamed as a result of this adjacent abscess cavity. The terminal ileum was mobilized and the small bowel was examined in a retrograde fashion to the ligament of Treitz. No other abnormalities were detected. The omentum surrounding the abscess cavity was also mobilized. To continue dissection, it was necessary to extend the midline incision cephalad to the umbilicus. Eventually I was able to isolate the cecum and identify the inflamed, necrotic appendix. The mesoappendix was transected with the aid of an Ethicon ATS 45 mm stapler using a vascular cartridge. The appendix was then transected with a second application of the Ethicon ATS 35 mm stapler. The appendix was removed and sent to pathology for analysis. The abscess cavity, right paracolic gutter , and the pelvis were then copiously irrigated with warm sterile saline. Inspection of this area demonstrated adequate hemostasis as well as intact staple lines. Closure was initiated. The peritoneum was reapproximated with running locking 0 Vicryl. The midline fascia was approximated with interrupted [id number] 0 Vicryl. The subcutaneous tissue was approximated with running 3-0 Vicryl. The skin edges were approximated with surya. A dry sterile dressing was applied. The patient was taken to PACU in stable condition. Needle, sponge, and instrument counts were correct at the close of the case.
[2016-08-12] MEDS: Albuterol 2.5 MG/3 ML NEBULIZER IH SCH ×2 (16:38→22:29)
[2016-08-12] MEDS: Clinimix E 5%-15% SOLUTION 2,000 ML with MVI, adult with vitamin K 10 ML IV SCH (17:26)
[2016-08-12] MEDS: Ondansetron 4 MG/2 ML VIAL IVP PRN (21:44)
[2016-08-13] MEDS: Albuterol 2.5 MG/3 ML NEBULIZER IH SCH ×4 (03:36→22:42)
[2016-08-13 03:41] LABS: Monocytes % 4.8 %; Red Cell Distribution Width 16.3 % (11.5-14.5)
[2016-08-13 03:42] LABS: Basophils # 0.1 K/mcL (0.0-0.2); Basophils % 0.4 %; Eosinophils # 0.1 K/mcL (0.0-0.6); Eosinophils % 0.2 %; Hematocrit 38.5 % (37.5-50.1); Hemoglobin 12.2 g/dL (12.9-16.9); Immature Granulocytes % 2.1 % (0-4); Lymphocytes # 1.6 K/mcL (0.6-4.6); Lymphocytes % 5.2 %; Mean Corpuscular HGB Conc 31.7 g/dL (31.6-35.5); Mean Corpuscular Hemoglobin 25.7 pg (28.0-33.3); Mean Corpuscular Volume 81.2 fL (83.0-100.0); Mean Platelet Volume 10.3 fL (9.4-12.4); Monocytes # 1.5 K/mcL (0.0-1.3); Neutrophils # 27.4 K/mcL (1.6-8.9); Platelet Count 428 K/mcL (140-400); Red Blood Count 4.74 M/mcL (4.19-5.50); Segmented Neutrophils % 87.3 %
[2016-08-13 03:52] LABS: BUN/Creatinine Ratio 21 (6-26); Blood Urea Nitrogen 17 mg/dL (8-26); Calcium 7.8 mg/dL (8.6-10.8); Carbon Dioxide 28 mEq/L (19-29); Chloride 99 mEq/L (98-109); Glucose 211 mg/dL (70-99); Osmolality,Calculated 286 (280-300); Potassium 4.7 mEq/L (3.5-4.5); Sodium 134 mEq/L (136-145); eGFR For African Americans > 60 (> 60); eGFR For Non-African Americans > 60 (> 60)
[2016-08-13] MEDS: Piperacillin/Tazobactam 3.375 GM in D5% in Water (Mini-Bag+) 100 ML IVPB SCH ×3 (04:06→20:02)
[2016-08-13] MEDS: Insulin LISPRO 300 UNITS/3 ML VIAL SQ SCH ×5 (04:07→20:04)
[2016-08-13 04:08] LABS: Platelet Estimate Normal (Normal)
[2016-08-13] MEDS: MetroNIDAZOLE 500 MG/100 ML 500 MG/100 ML BAG IVPB SCH ×3 (05:49→17:26)
[2016-08-13] MEDS: Nicotine 21 MG PATCH.TD24 TD SCH (08:28)
[2016-08-13] MEDS: Pantoprazole 40 MG VIAL IV SCH (08:29)
[2016-08-13] MEDS: Ondansetron 4 MG/2 ML VIAL IVP PRN ×3 (08:29→22:11)
--- NOTE | 2016-08-13 10:40 | General Surgery Progress Note ---
Date of Encounter: 08/13/16 Time of Encounter: 10:32 Subjective Narrative: POD #1 - patient complaining of thirst and dry mouth. It was explained to the patient last evening and again today that those sx likely due to Anesthesia. Pain seems to be adequately controlled. Afebrile, pulse 92-97, respirations 18, blood pressure 146/65. SPO2 on liters per minute nasal cannula 95% Lungs: Clear to auscultation Abdomen: obese, quiet, incision clean and dry. Urine output: Approximately 1600 for 08/12/2016; 400mL so far today Laboratories: White count 31.4 - likely due to response to surgery Hemoglobin 12.2, hematocrit 38.5; platelet count 428,000. Sodium 134, potassium 4.7, BUN 17 creatinine 0.81 Impression/Plan: Postoperative day 1; status post exploratory celiotomy evacuation of intraperitoneal abscess and interval appendectomy for acute perforated appendicitis Satisfactory status Postoperative ileus as expected - it is anticipated that bowel function will require several more days to recover and resume activity Hyponatremia - asymptomatic Borderline elevated potassium - continue to monitor Continue TPN as patient will remain NPO remove Chau Objective Vital Signs - Last 8 Hours Temp Pulse Resp BP Pulse Ox 08/13/16 07:35 98.1 F 92 18 146/65 95 08/13/16 03:36 18 95 08/13/16 03:13 97.7 F 97 18 124/86 94 L Intake and Output 08/12/16 08/13/16 08/13/16 23:59 07:59 15:59 Intake Total 1200 / 1200 200 / 200 100 / 100 Output Total 675 / 675 400 / 400 Balance 525 / 525 -200 / -200 100 / 100 Intake: IV Fluids 1200 / 1200 200 / 200 100 / 100 0.9 % Sodium Chloride 1, 1000 / 1000 000 ML @ 75 mls/hr IVC . [id number] [facility] Rx#: [id number] Flagyl 500 MG/100 ML 500 100 / 100 200 / 200 mg In 100 ml @ 100 mls/hr IVPB Q6H [facility] Rx#: [id number] Zosyn 3.375 GM In 100 / 100 100 / 100 Dextrose 5% (Minibag+) 100 ML 100 ML @ 25 mls/hr IVPB Q8H [facility] Rx#: [id number] Oral 0 / 0 0 / 0 Output: Catheter 675 / 675 400 / 400 Other: Meal NPO Weight 176.2 kg Blood Glucose* 169 197 Patient Weight 08/13/16 23:59 Weight 176.2 kg - Labs 08/13/16 03:37 08/13/16 03:37 Diabetes panel 08/13/16 Range/Units 03:37 Sodium 134 L (136-145) mEq/L Potassium 4.7 H (3.5-4.5) mEq/L Chloride 99 (98-109) mEq/L Carbon Dioxide 28 (19-29) mEq/L BUN 17 (8-26) mg/dL Creatinine 0.81 (0.72-1.25) mg/dL Glucose 211 H (70-99) mg/dL Calcium 7.8 L (8.6-10.8) mg/dL Calcium panel 08/13/16 Range/Units 03:37 Calcium 7.8 L (8.6-10.8) mg/dL Pituitary panel 08/13/16 Range/Units 03:37 Sodium 134 L (136-145) mEq/L Potassium 4.7 H (3.5-4.5) mEq/L Chloride 99 (98-109) mEq/L Carbon Dioxide 28 (19-29) mEq/L BUN 17 (8-26) mg/dL Creatinine 0.81 (0.72-1.25) mg/dL Glucose 211 H (70-99) mg/dL Calcium 7.8 L (8.6-10.8) mg/dL Adrenal panel 08/13/16 Range/Units 03:37 Sodium 134 L (136-145) mEq/L Potassium 4.7 H (3.5-4.5) mEq/L Chloride 99 (98-109) mEq/L Carbon Dioxide 28 (19-29) mEq/L BUN 17 (8-26) mg/dL Creatinine 0.81 (0.72-1.25) mg/dL Glucose 211 H (70-99) mg/dL Calcium 7.8 L (8.6-10.8) mg/dL - VTE Documentation of Mechanical Device: Intermittent pneumatic compression device Consult Discharge Plan - Plan Referrals: Anibal Pack MD [Non-Partnered Physician] - NO,PCP [Primary Care Provider] - (Patient has a primary physician in [place], and will make his own appt. when he returns home. He will be staying in [place] for awhile, so not sure when he will be returning. Offered to find him a primary here, and he does not want one at this time. Thank you)
[2016-08-13] MEDS ORDERED: *HR* HYDROmorphone 20 MG/20 ML PCA IVC PRN (10:41)
[2016-08-13] MEDS: 0.9 % Sodium Chloride 500 ML IVC SCH (12:14)
[2016-08-13] MEDS ORDERED: Clinimix E 5%-15% SOLUTION 2,000 ML with MVI, adult with vitamin K 10 ML IV SCH (17:00)
[2016-08-13] MEDS: Clinimix E 5%-15% SOLUTION 2,000 ML with MVI, adult with vitamin K 10 ML IV SCH ×2 (17:30→19:33)
[2016-08-14] MEDS: MetroNIDAZOLE 500 MG/100 ML 500 MG/100 ML BAG IVPB SCH ×5 (00:13→23:52)
[2016-08-14] MEDS: Insulin LISPRO 300 UNITS/3 ML VIAL SQ SCH ×7 (00:20→23:52)
[2016-08-14] MEDS: Ondansetron 4 MG/2 ML VIAL IVP PRN ×4 (03:15→21:04)
[2016-08-14] MEDS: Albuterol 2.5 MG/3 ML NEBULIZER IH SCH ×4 (03:58→21:59)
[2016-08-14 05:01] LABS: Mean Platelet Volume 10.2 fL (9.4-12.4)
[2016-08-14 05:03] LABS: Hematocrit 35.1 % (37.5-50.1); Mean Corpuscular HGB Conc 31.3 g/dL (31.6-35.5); Mean Corpuscular Hemoglobin 25.2 pg (28.0-33.3); Mean Corpuscular Volume 80.5 fL (83.0-100.0); Platelet Count 458 K/mcL (140-400); Red Blood Count 4.36 M/mcL (4.19-5.50); Red Cell Distribution Width 16.6 % (11.5-14.5)
[2016-08-14 05:15] LABS: BUN/Creatinine Ratio 20 (6-26); Blood Urea Nitrogen 15 mg/dL (8-26); Calcium 8.2 mg/dL (8.6-10.8); Carbon Dioxide 31 mEq/L (19-29); Chloride 97 mEq/L (98-109); Glucose 249 mg/dL (70-99); Magnesium 1.8 mg/dL (1.6-2.6); Osmolality,Calculated 285 (280-300); Phosphorous 3.4 mg/dL (2.3-4.7); Potassium 4.9 mEq/L (3.5-4.5); Sodium 133 mEq/L (136-145); eGFR For African Americans > 60 (> 60); eGFR For Non-African Americans > 60 (> 60)
[2016-08-14] MEDS: Piperacillin/Tazobactam 3.375 GM in D5% in Water (Mini-Bag+) 100 ML IVPB SCH ×3 (05:28→21:00)
[2016-08-14 06:01] LABS: Lymphocytes # 0.6 K/mcL (0.6-4.6); Monocytes # 0.6 K/mcL (0.0-1.3); Neutrophils # 29.6 K/mcL (1.6-8.9); Toxic Granulation Present (Not Present)
[2016-08-14] MEDS: Nicotine 21 MG PATCH.TD24 TD SCH (08:57)
[2016-08-14] MEDS: Pantoprazole 40 MG VIAL IV SCH (08:57)
[2016-08-14] MEDS: 0.9 % Sodium Chloride 500 ML IVC SCH (16:54)
[2016-08-14] MEDS ORDERED: MVI IV SCH (17:00)
[2016-08-14] MEDS ORDERED: AMINO ACIDS 10% IV SCH (17:00)
[2016-08-14] MEDS ORDERED: [UNRECOGNIZED DRUG - OTHER] IV SCH (17:00)
[2016-08-14] MEDS ORDERED: CLINIMIX E IV SCH (17:00)
[2016-08-14] MEDS: Clinimix E 5%-15% SOLUTION 2,000 ML with MVI, adult with vitamin K 10 ML IV SCH (17:24)
--- NOTE | 2016-08-14 18:19 | General Surgery Progress Note ---
Date of Encounter: 08/14/16 Time of Encounter: 18:13 Subjective Patient reports: still having pain Narrative: Postoperative day 2: Maximum temperature 99.1; pulse 92, respirations 18, blood pressure 144/90. Accu-Cheks: 180-232 Lungs: Clear; satisfactory inspiratory effort Abdomen: Obese; persistent tenderness that appears to be diminishing in the right lower quadrant. Bowel sounds now audible but hypoactive No flatus or BM. Midline incision clean and dry Urine output approximately 900 mL so far today. Chau removed, patient able to void Laboratories: Persistent leukocytosis, 30.8; hemoglobin 11.9, hematocrit 35.1, platelet count 458,000 Sodium 133, potassium 4.9, chloride 97, BUN 15, creatinine 0.75 Pre-albumin 5.0 despite TPN at goal rate Impression: Postoperative day 2, status post exploratory celiotomy with evacuation of large intra-abdominal abscess and interval appendectomy. Hyponatremia without obvious symptoms Elevated potassium - possibly due to TPN, If the potassium continues to rise , potassium will be removed from the TPN. Intra-abdominal abscess related to acute perforated appendicitis - intraoperative cultures are still pending but pulmonary results demonstrate a gram-negative aditi. Continue IV antibiotics Patient requires significant encouragement to increase activity out of bed. Objective Vital Signs - Last 8 Hours Temp Pulse Resp BP Pulse Ox 08/14/16 16:44 18 97 08/14/16 15:20 98.5 F 92 18 144/90 97 08/14/16 11:00 18 96 08/14/16 10:25 98.2 F 95 18 144/82 96 Intake and Output 08/14/16 08/14/16 08/14/16 07:59 15:59 23:59 Intake Total 200 / 200 700 / 700 100 / 100 Output Total 500 / 500 400 / 400 Balance -300 / -300 300 / 300 100 / 100 Intake: IV Fluids 200 / 200 700 / 700 100 / 100 0.9 % Sodium Chloride 500 500 / 500 ML @ 20 mls/hr IVC .Q24H [facility] Rx#:[id number] Flagyl 500 MG/100 ML 500 100 / 100 100 / 100 mg In 100 ml @ 100 mls/hr IVPB Q6H [facility] Rx#: [id number] Zosyn 3.375 GM In 100 / 100 100 / 100 100 / 100 Dextrose 5% (Minibag+) 100 ML 100 ML @ 25 mls/hr IVPB Q8H [facility] Rx#: [id number] Oral 0 / 0 0 / 0 Output: Urine 500 / 500 400 / 400 Other: Meal NPO # Voids 1 Blood Glucose* 218 232 - Labs 08/14/16 04:45 08/14/16 04:45 Diabetes panel 08/14/16 Range/Units 04:45 Sodium 133 L (136-145) mEq/L Potassium 4.9 H (3.5-4.5) mEq/L Chloride 97 L (98-109) mEq/L Carbon Dioxide 31 H (19-29) mEq/L BUN 15 (8-26) mg/dL Creatinine 0.75 (0.72-1.25) mg/dL Glucose 249 H (70-99) mg/dL Calcium 8.2 L (8.6-10.8) mg/dL Calcium panel 08/14/16 Range/Units 04:45 Calcium 8.2 L (8.6-10.8) mg/dL Phosphorus 3.4 (2.3-4.7) mg/dL Pituitary panel 08/14/16 Range/Units 04:45 Sodium 133 L (136-145) mEq/L Potassium 4.9 H (3.5-4.5) mEq/L Chloride 97 L (98-109) mEq/L Carbon Dioxide 31 H (19-29) mEq/L BUN 15 (8-26) mg/dL Creatinine 0.75 (0.72-1.25) mg/dL Glucose 249 H (70-99) mg/dL Calcium 8.2 L (8.6-10.8) mg/dL Adrenal panel 08/14/16 Range/Units 04:45 Sodium 133 L (136-145) mEq/L Potassium 4.9 H (3.5-4.5) mEq/L Chloride 97 L (98-109) mEq/L Carbon Dioxide 31 H (19-29) mEq/L BUN 15 (8-26) mg/dL Creatinine 0.75 (0.72-1.25) mg/dL Glucose 249 H (70-99) mg/dL Calcium 8.2 L (8.6-10.8) mg/dL - VTE Documentation of Mechanical Device: Intermittent pneumatic compression device Consult Discharge Plan - Plan Referrals: Anibal Pack MD [Non-Partnered Physician] - NO,PCP [Primary Care Provider] - (Patient has a primary physician in [place], and will make his own appt. when he returns home. He will be staying in [place] for awhile, so not sure when he will be returning. Offered to find him a primary here, and he does not want one at this time. Thank you)
[2016-08-14] MEDS: Insulin DETEMIR 100 UNIT/ML X5UNITS SQ SCH (21:25)
[2016-08-14] MEDS: *HR* HYDROmorphone 20 MG/20 ML PCA IVC PRN (21:35)
[2016-08-15] MEDS: Ondansetron 4 MG/2 ML VIAL IVP PRN ×5 (01:29→22:26)
[2016-08-15] MEDS: Piperacillin/Tazobactam 3.375 GM in D5% in Water (Mini-Bag+) 100 ML IVPB SCH ×3 (03:12→20:48)
[2016-08-15] MEDS: Insulin LISPRO 300 UNITS/3 ML VIAL SQ SCH ×5 (03:19→22:55)
[2016-08-15 03:41] LABS: Basophils % 0.4 %; Red Cell Distribution Width 16.7 % (11.5-14.5)
[2016-08-15 03:43] LABS: Basophils # 0.1 K/mcL (0.0-0.2); Eosinophils # 0.2 K/mcL (0.0-0.6); Eosinophils % 0.7 %; Hematocrit 32.7 % (37.5-50.1); Hemoglobin 10.4 g/dL (12.9-16.9); Immature Granulocytes % 3.5 % (0-4); Immature Platelets 6.2 % (1.1-6.1); Lymphocytes # 1.6 K/mcL (0.6-4.6); Mean Corpuscular HGB Conc 31.8 g/dL (31.6-35.5); Mean Corpuscular Hemoglobin 25.7 pg (28.0-33.3); Mean Corpuscular Volume 80.7 fL (83.0-100.0); Mean Platelet Volume 10.5 fL (9.4-12.4); Monocytes # 1.6 K/mcL (0.0-1.3); Monocytes % 6.2 %; Neutrophils # 21.6 K/mcL (1.6-8.9); Platelet Count 553 K/mcL (140-400); Red Blood Count 4.05 M/mcL (4.19-5.50); Segmented Neutrophils % 83.2 %
[2016-08-15 04:02] LABS: BUN/Creatinine Ratio 25 (6-26); Blood Urea Nitrogen 17 mg/dL (8-26); Calcium 7.9 mg/dL (8.6-10.8); Carbon Dioxide 27 mEq/L (19-29); Chloride 97 mEq/L (98-109); Glucose 201 mg/dL (70-99); Osmolality,Calculated 281 (280-300); Potassium 4.9 mEq/L (3.5-4.5); Sodium 132 mEq/L (136-145); eGFR For African Americans > 60 (> 60); eGFR For Non-African Americans > 60 (> 60)
[2016-08-15] MEDS: Albuterol 2.5 MG/3 ML NEBULIZER IH SCH ×4 (04:06→21:00)
[2016-08-15 04:32] LABS: Platelet Estimate Increased (Normal)
[2016-08-15] MEDS: MetroNIDAZOLE 500 MG/100 ML 500 MG/100 ML BAG IVPB SCH ×3 (05:46→17:30)
[2016-08-15] MEDS: Pantoprazole 40 MG VIAL IV SCH (07:52)
[2016-08-15] MEDS: 0.9 % Sodium Chloride 500 ML IVC SCH (07:57)
[2016-08-15] MEDS: Nicotine 21 MG PATCH.TD24 TD SCH (07:58)
[2016-08-15] MEDS: Insulin DETEMIR 100 UNIT/ML X5UNITS SQ SCH ×2 (09:46→20:50)
--- NOTE | 2016-08-15 15:50 | General Surgery Progress Note ---
Date of Encounter: 08/15/16 Time of Encounter: 15:42 Subjective Patient reports: feels better Narrative: Postoperative day #3: Patient feeling better; less abdominal pain. No passage of flatus or BM Afebrile, 98.1; pulse 6, respirations 18, blood pressure 144/82. SPO2 on room air 96% Lungs: Clear to auscultation Abdomen: Exam limited by body habitus but soft, minimal right lower quadrant tenderness; active bowel sounds Midline incision clean and dry. Urine output: 900 mL, 08/14/16; 1400 mL so far today Laboratories: Leukocytosis improved to 26,000; hemoglobin 10.4 with hematocrit 32.7; platelet count 553,000 Sodium 132, potassium remains elevated at 4.9; chloride 97, Bun 17, creatinine 0.69. Blood sugar 201; Accu-Chek 195 Pathology: Periappendiceal fat with abscess and granulation tissue. Findings are compatible with history of perforation, however, after examination of most of the tissue, no appendix was identified. This is clearly discordant from the intraoperative findings. Operative cultures: Pansensitive Escherichia coli; anaerobic cultures negative for growth after 5 days Impression: POD #3 - slowing improving. Pain decreased despite decreased dosing via [facility]. Currently tolerating clear liquids - no N/V. Leukocytosis improving. Hyponatremia without obvious symptoms Anemia - most likely due to acute disease as well as IV hydration Nutrition: Mild to moderate protein and calorie depletion - continue TPN until enteral route becomes more available Hyperglycemia - related to TPN. Continue sliding-scale coverage as well as twice a day Levemir Objective Vital Signs - Last 8 Hours Temp Pulse Resp BP Pulse Ox 08/15/16 15:03 98.1 F 86 18 145/82 96 08/15/16 12:07 98.5 F 87 18 135/77 96 08/15/16 10:33 18 98 Intake and Output 08/14/16 08/15/16 08/15/16 23:59 07:59 15:59 Intake Total 200 / 200 1050 / 1050 200 / 200 Output Total 0 / 0 700 / 700 700 / 700 Balance 200 / 200 350 / 350 -500 / -500 Intake: IV Fluids 200 / 200 1050 / 1050 200 / 200 0.9 % Sodium Chloride 500 500 / 500 ML @ 20 mls/hr IVC .Q24H [facility] Rx#:[id number] Intralipid 20% 250 ML @ 250 / 250 21 mls/hr IVPB MoWeFr@ 1700 [facility] Rx#:[id number] Flagyl 500 MG/100 ML 500 100 / 100 200 / 200 100 / 100 mg In 100 ml @ 100 mls/hr IVPB Q6H [facility] Rx#: [id number] Zosyn 3.375 GM In 100 / 100 100 / 100 100 / 100 Dextrose 5% (Minibag+) 100 ML 100 ML @ 25 mls/hr IVPB Q8H [facility] Rx#: [id number] Oral 0 / 0 0 / 0 0 / 0 Output: Urine 0 / 0 700 / 700 700 / 700 Other: Meal npo # Voids 1 Weight 176.3 kg Blood Glucose* 193 180 195 Patient Weight 08/15/16 23:59 Weight 176.3 kg - Labs 08/15/16 03:22 08/15/16 03:22 Diabetes panel 08/15/16 Range/Units 03:22 Sodium 132 L (136-145) mEq/L Potassium 4.9 H (3.5-4.5) mEq/L Chloride 97 L (98-109) mEq/L Carbon Dioxide 27 (19-29) mEq/L BUN 17 (8-26) mg/dL Creatinine 0.69 L (0.72-1.25) mg/dL Glucose 201 H (70-99) mg/dL Calcium 7.9 L (8.6-10.8) mg/dL Calcium panel 08/15/16 Range/Units 03:22 Calcium 7.9 L (8.6-10.8) mg/dL Pituitary panel 08/15/16 Range/Units 03:22 Sodium 132 L (136-145) mEq/L Potassium 4.9 H (3.5-4.5) mEq/L Chloride 97 L (98-109) mEq/L Carbon Dioxide 27 (19-29) mEq/L BUN 17 (8-26) mg/dL Creatinine 0.69 L (0.72-1.25) mg/dL Glucose 201 H (70-99) mg/dL Calcium 7.9 L (8.6-10.8) mg/dL Adrenal panel 08/15/16 Range/Units 03:22 Sodium 132 L (136-145) mEq/L Potassium 4.9 H (3.5-4.5) mEq/L Chloride 97 L (98-109) mEq/L Carbon Dioxide 27 (19-29) mEq/L BUN 17 (8-26) mg/dL Creatinine 0.69 L (0.72-1.25) mg/dL Glucose 201 H (70-99) mg/dL Calcium 7.9 L (8.6-10.8) mg/dL - VTE Documentation of Mechanical Device: Intermittent pneumatic compression device Consult Discharge Plan - Plan Referrals: Anibal Pack MD [Non-Partnered Physician] - NO,PCP [Primary Care Provider] - (Patient has a primary physician in [place], and will make his own appt. when he returns home. He will be staying in [place] for awhile, so not sure when he will be returning. Offered to find him a primary here, and he does not want one at this time. Thank you)
[2016-08-15] MEDS ORDERED: MVI IVC SCH (17:00)
[2016-08-15] MEDS ORDERED: AMINO ACIDS 10% IVC SCH (17:00)
[2016-08-15] MEDS ORDERED: CLINIMIX E IVC SCH (17:00)
[2016-08-15] MEDS ORDERED: [UNRECOGNIZED DRUG - OTHER] IVC SCH (17:00)
[2016-08-15] MEDS: *HR* Heparin 5,000 UNIT/ML VIAL SQ SCH ×2 (17:29→22:54)
[2016-08-16] MEDS: MetroNIDAZOLE 500 MG/100 ML 500 MG/100 ML BAG IVPB SCH ×3 (00:12→14:25)
[2016-08-16] MEDS: Ondansetron 4 MG/2 ML VIAL IVP PRN ×5 (02:53→22:19)
[2016-08-16] MEDS: Albuterol 2.5 MG/3 ML NEBULIZER IH SCH ×4 (03:56→21:31)
[2016-08-16] MEDS: Piperacillin/Tazobactam 3.375 GM in D5% in Water (Mini-Bag+) 100 ML IVPB SCH ×2 (05:01→14:24)
[2016-08-16] MEDS: Insulin LISPRO 300 UNITS/3 ML VIAL SQ SCH ×6 (05:11→22:04)
[2016-08-16] MEDS: *HR* Heparin 5,000 UNIT/ML VIAL SQ SCH ×3 (06:10→22:18)
[2016-08-16 07:34] LABS: Basophils # 0.1 K/mcL (0.0-0.2); Basophils % 0.6 %; Eosinophils # 0.2 K/mcL (0.0-0.6); Eosinophils % 1.1 %; Hematocrit 34.1 % (37.5-50.1); Hemoglobin 10.6 g/dL (12.9-16.9); Immature Granulocytes % 3.5 % (0-4); Lymphocytes # 1.8 K/mcL (0.6-4.6); Lymphocytes % 8.5 %; Mean Corpuscular HGB Conc 31.1 g/dL (31.6-35.5); Mean Corpuscular Volume 80.4 fL (83.0-100.0); Mean Platelet Volume 9.8 fL (9.4-12.4); Monocytes # 1.3 K/mcL (0.0-1.3); Monocytes % 6.1 %; Neutrophils # 16.7 K/mcL (1.6-8.9); Platelet Count 586 K/mcL (140-400); Red Blood Count 4.24 M/mcL (4.19-5.50); Red Cell Distribution Width 16.7 % (11.5-14.5); Segmented Neutrophils % 80.2 %
[2016-08-16 07:37] LABS: Albumin/Globulin Ratio 0.5 (1.1-2.2); Globulin 4.2 g/dL (2.4-3.5); Potassium 4.6 mEq/L (3.5-4.5); Total Protein 6.1 g/dL (6.0-8.3)
[2016-08-16] MEDS: Nicotine 21 MG PATCH.TD24 TD SCH (07:39)
[2016-08-16] MEDS: Pantoprazole 40 MG VIAL IV SCH (07:40)
[2016-08-16 07:41] LABS: Albumin 1.9 g/dL (3.5-5.0)
[2016-08-16] MEDS: Insulin DETEMIR 100 UNIT/ML X5UNITS SQ SCH ×2 (11:36→22:05)
[2016-08-16] MEDS: *HR* HYDROmorphone 20 MG/20 ML PCA IVC PRN (12:35)
--- NOTE | 2016-08-16 16:42 | General Surgery Progress Note ---
Date of Encounter: 08/16/16 Time of Encounter: 16:15 Subjective Patient reports: feels better, flatus Narrative: Postoperative day 4: Patient feeling better, he indicates that he has passed flatus. He is still complaining of right lower quadrant abdominal pain. It is not certain whether it is improving/resolving. No nausea or vomiting The patient is afebrile, 98.1; pulse 82, respirations 16, blood pressure 142/ 84. Accu-Cheks: Better, 166-174 Lungs: Clear; no obvious abdominal pain with deep inspiration Abdomen: Morbidly obese with persistent tenderness in the right lower quadrant but no discernible masses (exam limited by body habitus). No rebound. Active bowel sounds. Midline Incision, clean and dRY. Laboratories: Leukocytosis continues to improve, 20.9; hemoglobin stable at 10.6 , hematocrit 34.1. Platelet count 586,000. Potassium 4.6 Pathology: Periappendiceal abscess with granulation tissue. Findings consistent with perforation, however, after examination of most of the tissue, no appendix was identified. Patient was aware of these pathology findings. Impression: Postoperative day 4: Appears to be making slow progress. Leukocytosis improving; colon bowel function is also improving/returning. Persistent right lower quadrant tenderness which will require continued monitoring. Plan: Advance diet; begin to taper TPN; discussed with Dietary Objective Vital Signs - Last 8 Hours Temp Pulse Resp BP Pulse Ox 08/16/16 14:56 98.1 F 82 16 142/84 97 08/16/16 10:50 98.2 F 85 16 139/81 98 08/16/16 09:42 16 90 L Intake and Output 08/16/16 08/16/16 08/16/16 07:59 15:59 23:59 Intake Total 355.1 / 355.1 100 / 100 Output Total 550 / 550 150 / 150 Balance -194.9 / -194.9 -50 / -50 Intake: IV Fluids 355.1 / 355.1 100 / 100 0.9 % Sodium Chloride 500 55.1 / 55.1 ML @ 20 mls/hr IVC .Q24H [facility] Rx#:[id number] Flagyl 500 MG/100 ML 500 200 / 200 mg In 100 ml @ 100 mls/hr IVPB Q6H [facility] Rx#: [id number] Zosyn 3.375 GM In 100 / 100 100 / 100 Dextrose 5% (Minibag+) 100 ML 100 ML @ 25 mls/hr IVPB Q8H [facility] Rx#: [id number] Oral 0 / 0 0 / 0 Output: Urine 550 / 550 150 / 150 Other: Weight 172.5 kg Blood Glucose* 166 216 Patient Weight 08/16/16 23:59 Weight 172.5 kg - Labs 08/16/16 06:53 08/16/16 06:53 Diabetes panel 08/16/16 Range/Units 06:53 Potassium 4.6 H (3.5-4.5) mEq/L Albumin 1.9 L (3.5-5.0) g/dL Calcium panel 08/16/16 Range/Units 06:53 Albumin 1.9 L (3.5-5.0) g/dL Pituitary panel 08/16/16 Range/Units 06:53 Potassium 4.6 H (3.5-4.5) mEq/L Adrenal panel 08/16/16 Range/Units 06:53 Potassium 4.6 H (3.5-4.5) mEq/L Albumin 1.9 L (3.5-5.0) g/dL - VTE Documentation of Mechanical Device: Intermittent pneumatic compression device Consult Discharge Plan - Plan Referrals: Anibal Pack MD [Non-Partnered Physician] - NO,PCP [Primary Care Provider] - (Patient has a primary physician in [place], and will make his own appt. when he returns home. He will be staying in [place] for awhile, so not sure when he will be returning. Offered to find him a primary here, and he does not want one at this time. Thank you)
[2016-08-16] MEDS ORDERED: CLINIMIX E IVC SCH (17:00)
[2016-08-16] MEDS ORDERED: AMINO ACIDS 10% IVC SCH (17:00)
[2016-08-16] MEDS ORDERED: MVI IVC SCH (17:00)
[2016-08-16] MEDS ORDERED: [UNRECOGNIZED DRUG - OTHER] IVC SCH (17:00)
[2016-08-16] MEDS: cefOXitin 2,000 MG in D5% in Water (Mini-Bag+) 100 ML IVPB SCH (18:46)
[2016-08-17] MEDS: Insulin LISPRO 300 UNITS/3 ML VIAL SQ SCH ×6 (01:07→21:16)
[2016-08-17] MEDS: cefOXitin 2,000 MG in D5% in Water (Mini-Bag+) 100 ML IVPB SCH ×3 (02:01→16:44)
[2016-08-17] MEDS: Ondansetron 4 MG/2 ML VIAL IVP PRN ×4 (02:02→21:16)
[2016-08-17] MEDS: Albuterol 2.5 MG/3 ML NEBULIZER IH SCH ×4 (03:55→23:16)
[2016-08-17 04:18] LABS: Basophils # 0.1 K/mcL (0.0-0.2); Basophils % 0.5 %; Eosinophils # 0.1 K/mcL (0.0-0.6); Eosinophils % 0.6 %; Hematocrit 30.9 % (37.5-50.1); Hemoglobin 9.2 g/dL (12.9-16.9); Immature Granulocytes % 2.6 % (0-4); Lymphocytes # 1.2 K/mcL (0.6-4.6); Lymphocytes % 5.5 %; Mean Corpuscular HGB Conc 29.8 g/dL (31.6-35.5); Mean Corpuscular Hemoglobin 24.6 pg (28.0-33.3); Mean Corpuscular Volume 82.6 fL (83.0-100.0); Mean Platelet Volume 10.6 fL (9.4-12.4); Monocytes # 1.2 K/mcL (0.0-1.3); Monocytes % 5.6 %; Neutrophils # 18.6 K/mcL (1.6-8.9); Platelet Count 426 K/mcL (140-400); Red Blood Count 3.74 M/mcL (4.19-5.50); Red Cell Distribution Width 16.6 % (11.5-14.5); Segmented Neutrophils % 85.2 %
[2016-08-17 05:03] LABS: Anisocytosis 1+ (Not Present); Hypochromasia Present (Not Present); Platelet Estimate Increased (Normal); Polychromasia 1+ (Not Present)
[2016-08-17] MEDS: *HR* Heparin 5,000 UNIT/ML VIAL SQ SCH ×2 (05:04→16:43)
[2016-08-17] MEDS: Pantoprazole 40 MG VIAL IV SCH (09:15)
[2016-08-17] MEDS: Nicotine 21 MG PATCH.TD24 TD SCH (09:15)
[2016-08-17] MEDS: Insulin DETEMIR 100 UNIT/ML X5UNITS SQ SCH ×2 (09:30→21:16)
[2016-08-17 16:37] LABS: BUN/Creatinine Ratio 18 (6-26); Blood Urea Nitrogen 12 mg/dL (8-26); Calcium 7.9 mg/dL (8.6-10.8); Carbon Dioxide 25 mEq/L (19-29); Chloride 95 mEq/L (98-109); Glucose 185 mg/dL (70-99); Osmolality,Calculated 273 (280-300); Potassium 4.7 mEq/L (3.5-4.5); Sodium 129 mEq/L (136-145); eGFR For African Americans > 60 (> 60); eGFR For Non-African Americans > 60 (> 60)
[2016-08-17] MEDS ORDERED: CLINIMIX E IVC SCH (17:00)
[2016-08-17] MEDS ORDERED: [UNRECOGNIZED DRUG - OTHER] IVC SCH (17:00)
[2016-08-17] MEDS ORDERED: MVI IVC SCH (17:00)
[2016-08-17] MEDS ORDERED: AMINO ACIDS 10% IVC SCH (17:00)
[2016-08-17] MEDS: 0.9 % Sodium Chloride 500 ML IVC SCH (17:08)
--- NOTE | 2016-08-17 19:00 | General Surgery Progress Note ---
Date of Encounter: 08/17/16 Time of Encounter: 18:52 Subjective Narrative: Postoperative day 5: Patient seen earlier today with continued complaints night sweats and right lower quadrant abdominal pain. The patient remains afeb and hemodynamically stable. Leukocytosis increased to 21.8 (previously 20.9). Based on these findings a CT of the abdomen/pelvis was obtained. The CT findings include: Mildly to moderately dilated loops of small bowel without distinct transition point, new likely connected abscesses along the right paracolic gutter and persistent mesenteric stranding but most prominent in the right lower quadrant. The Ct was personally reviewed with Dr Centeno, [facility]. The abscesses are accessible for percutaneous drainage. This has been arranged with [facility] in the AM The patient and his are aware of the CT findings and the recommendation for image guided percutaneous drainage. Objective Vital Signs - Last 8 Hours Temp Pulse Resp BP Pulse Ox 08/17/16 16:14 16 99 08/17/16 16:06 98.6 F 100 18 146/77 94 L 08/17/16 11:28 18 95 Intake and Output 08/17/16 08/17/16 08/17/16 07:59 15:59 23:59 Intake Total 604.9 / 604.9 220 / 220 200 / 200 Output Total 800 / 800 300 / 300 600 / 600 Balance -195.1 / -195.1 -80 / -80 -400 / -400 Intake: IV Fluids 544.9 / 544.9 100 / 100 0.9 % Sodium Chloride 500 444.9 / 444.9 ML @ 20 mls/hr IVC .Q24H [facility] Rx#:[id number] Mefoxin 2,000 MG In 100 / 100 100 / 100 Dextrose 5% (Minibag+) 100 ML 100 ML @ 200 mls/ hr IVPB Q8H [facility] Rx#: [id number] Oral 60 / 60 120 / 120 200 / 200 Output: Urine 800 / 800 300 / 300 600 / 600 Other: Meal Breakfast Percent of Meal Consumed 0% Weight 172.6 kg Blood Glucose* 134 173 210 Patient Weight 08/17/16 23:59 Weight 172.6 kg - Labs 08/17/16 03:25 08/17/16 16:06 Diabetes panel 08/17/16 Range/Units 16:06 Sodium 129 L (136-145) mEq/L Potassium 4.7 H (3.5-4.5) mEq/L Chloride 95 L (98-109) mEq/L Carbon Dioxide 25 (19-29) mEq/L BUN 12 (8-26) mg/dL Creatinine 0.66 L (0.72-1.25) mg/dL Glucose 185 H (70-99) mg/dL Calcium 7.9 L (8.6-10.8) mg/dL Calcium panel 08/17/16 Range/Units 16:06 Calcium 7.9 L (8.6-10.8) mg/dL Pituitary panel 08/17/16 Range/Units 16:06 Sodium 129 L (136-145) mEq/L Potassium 4.7 H (3.5-4.5) mEq/L Chloride 95 L (98-109) mEq/L Carbon Dioxide 25 (19-29) mEq/L BUN 12 (8-26) mg/dL Creatinine 0.66 L (0.72-1.25) mg/dL Glucose 185 H (70-99) mg/dL Calcium 7.9 L (8.6-10.8) mg/dL Adrenal panel 08/17/16 Range/Units 16:06 Sodium 129 L (136-145) mEq/L Potassium 4.7 H (3.5-4.5) mEq/L Chloride 95 L (98-109) mEq/L Carbon Dioxide 25 (19-29) mEq/L BUN 12 (8-26) mg/dL Creatinine 0.66 L (0.72-1.25) mg/dL Glucose 185 H (70-99) mg/dL Calcium 7.9 L (8.6-10.8) mg/dL - VTE Documentation of Mechanical Device: Intermittent pneumatic compression device Consult Discharge Plan - Plan Referrals: Anibal Pack MD [Non-Partnered Physician] - NO,PCP [Primary Care Provider] - (Patient has a primary physician in [place], and will make his own appt. when he returns home. He will be staying in [place] for awhile, so not sure when he will be returning. Offered to find him a primary here, and he does not want one at this time. Thank you)
[2016-08-18] MEDS: Insulin LISPRO 300 UNITS/3 ML VIAL SQ SCH ×6 (00:17→22:12)
[2016-08-18] MEDS: cefOXitin 2,000 MG in D5% in Water (Mini-Bag+) 100 ML IVPB SCH ×3 (02:29→17:53)
[2016-08-18] MEDS: Ondansetron 4 MG/2 ML VIAL IVP PRN ×4 (02:30→19:56)
[2016-08-18 04:33] LABS: INR 1.4; Prothrombin Time 14.9 Seconds (9.4-12.1)
[2016-08-18 04:38] LABS: Basophils # 0.1 K/mcL (0.0-0.2); Basophils % 0.5 %; Eosinophils # 0.3 K/mcL (0.0-0.6); Eosinophils % 1.2 %; Hematocrit 32.7 % (37.5-50.1); Hemoglobin 10.1 g/dL (12.9-16.9); Immature Granulocytes % 2.4 % (0-4); Lymphocytes # 1.1 K/mcL (0.6-4.6); Lymphocytes % 4.6 %; Mean Corpuscular HGB Conc 30.9 g/dL (31.6-35.5); Mean Corpuscular Hemoglobin 25.1 pg (28.0-33.3); Mean Corpuscular Volume 81.1 fL (83.0-100.0); Mean Platelet Volume 9.9 fL (9.4-12.4); Monocytes # 1.3 K/mcL (0.0-1.3); Monocytes % 5.5 %; Neutrophils # 20.7 K/mcL (1.6-8.9); Platelet Count 574 K/mcL (140-400); Red Blood Count 4.03 M/mcL (4.19-5.50); Red Cell Distribution Width 16.4 % (11.5-14.5); Segmented Neutrophils % 85.8 %
[2016-08-18] MEDS: Albuterol 2.5 MG/3 ML NEBULIZER IH SCH ×4 (04:39→21:28)
[2016-08-18 04:44] LABS: BUN/Creatinine Ratio 20 (6-26); Blood Urea Nitrogen 13 mg/dL (8-26); Calcium 8.2 mg/dL (8.6-10.8); Carbon Dioxide 26 mEq/L (19-29); Chloride 97 mEq/L (98-109); Glucose 169 mg/dL (70-99); Magnesium 1.6 mg/dL (1.6-2.6); Osmolality,Calculated 274 (280-300); Phosphorous 4.1 mg/dL (2.3-4.7); Potassium 4.8 mEq/L (3.5-4.5); Sodium 130 mEq/L (136-145); eGFR For African Americans > 60 (> 60); eGFR For Non-African Americans > 60 (> 60)
[2016-08-18] MEDS: Pantoprazole 40 MG VIAL IV SCH (07:44)
[2016-08-18] MEDS: Nicotine 21 MG PATCH.TD24 TD SCH (07:44)
[2016-08-18] MEDS: Insulin DETEMIR 100 UNIT/ML X5UNITS SQ SCH ×2 (08:06→19:57)
[2016-08-18] MEDS: *HR* HYDROmorphone 20 MG/20 ML PCA IVC PRN (08:31)
[2016-08-18] MEDS ORDERED: *HR* Midazolam HCl 2 MG/2 ML VIAL IV PRN (09:56)
[2016-08-18] MEDS ORDERED: *HR* FentaNYL (PF) 100 MCG/2 ML VIAL IV PRN (09:56)
[2016-08-18] MEDS ORDERED: 0.9 % Sodium Chloride 500 ML ONE (10:06)
--- NOTE | 2016-08-18 10:32 | IR Procedure Note ---
Date of procedure: 08/18/16 Consent Obtained: Verbal consent, Written consent Timeout: Correct patient and procedure verified, Correct site verified, Time out performed, Skin prep completed Local anesthetic: Lidocaine 1% Indications: Abdominal abscesses Procedure Performed: Abdominal abscess drain x2 Site/Technique: 2 right abdominal abscess drains placed Results/Findings: Large abdominal fluid collections Estimated blood loss (cc): 2 Complications: None; Tolerated procedure well Post Procedure Treatment Plan: Both drains to GIRISH bulb drainage
--- NOTE | 2016-08-18 13:26 | General Surgery Progress Note ---
Date of Encounter: 08/18/16 Time of Encounter: 13:19 Subjective Patient reports: feels better, pain is less Narrative: POD # 6 - patient s/p image guided percutaneous placement drains in the right lower quadrant for recurrent abscess related to his acute perforated appendicitis The patient indicates he is feeling much improved. Afebrile, pulse 85, respirations 18, blood pressure 140/75 Lungs: Clear with better inspiratory effort Abdomen: Obese, much less tender in the right lower quadrant. Active bowel sounds. Laboratories: White count 24.2 - leukocytosis is expected to improve with placement of the percutaneous drains Hemoglobin 10.1, hematocrit 32.7; platelet count 574,000. Electrodes, BUN, creatinine - stable, sodium 130 (previously 129) - likely due to hydration; no obvious symptomatology Accu-Cheks 161-195 Impression: POD #6 s/p explor celiotomy for acute perforated appendicitis with intra peritoneal abscess post op abscess - s/p placemnt percutaneous drains per IR Persistent low grade hyperkalemia - likely due to TPN. TPN to be adjusted ( potassium removed) as peritoneal irritation subsides anticipate better bowel function which will allow parenteral nutrition with weaning TPN Objective Vital Signs - Last 8 Hours Temp Pulse Resp BP Pulse Ox 08/18/16 11:16 98.7 F 82 16 133/76 95 08/18/16 10:21 86 22 133/68 98 08/18/16 10:14 86 22 134/68 98 08/18/16 10:12 85 18 140/75 98 08/18/16 09:42 98.3 F 85 16 133/86 08/18/16 07:55 98.3 F 85 16 133/86 94 L Intake and Output 08/17/16 08/18/16 08/18/16 23:59 07:59 15:59 Intake Total 330 / 330 100 / 100 0 / 0 Output Total 1475 / 1475 800 / 800 100 / 100 Balance -1145 / -1145 -700 / -700 -100 / -100 Intake: IV Fluids 100 / 100 100 / 100 Mefoxin 2,000 MG In 100 / 100 100 / 100 Dextrose 5% (Minibag+) 100 ML 100 ML @ 200 mls/ hr IVPB Q8H [facility] Rx#: [id number] Oral 230 / 230 0 / 0 0 / 0 Output: Urine 1475 / 1475 800 / 800 Wound Drainage 100 / 100 Right Lower Abdomen 60 / 60 Right Upper Abdomen 40 / 40 Other: Meal NPO NPO Weight 172.4 kg Blood Glucose* 163 181 161 Patient Weight 08/18/16 23:59 Weight 172.4 kg - Labs 08/18/16 04:02 08/18/16 04:02 Diabetes panel 08/17/16 08/18/16 Range/Units 16:06 04:02 Sodium 129 L 130 L (136-145) mEq/L Potassium 4.7 H 4.8 H (3.5-4.5) mEq/L Chloride 95 L 97 L (98-109) mEq/L Carbon Dioxide 25 26 (19-29) mEq/L BUN 12 13 (8-26) mg/dL Creatinine 0.66 L 0.64 L (0.72-1.25) mg/dL Glucose 185 H 169 H (70-99) mg/dL Calcium 7.9 L 8.2 L (8.6-10.8) mg/dL Calcium panel 08/17/16 08/18/16 Range/Units 16:06 04:02 Calcium 7.9 L 8.2 L (8.6-10.8) mg/dL Phosphorus 4.1 (2.3-4.7) mg/dL Pituitary panel 08/17/16 08/18/16 Range/Units 16:06 04:02 Sodium 129 L 130 L (136-145) mEq/L Potassium 4.7 H 4.8 H (3.5-4.5) mEq/L Chloride 95 L 97 L (98-109) mEq/L Carbon Dioxide 25 26 (19-29) mEq/L BUN 12 13 (8-26) mg/dL Creatinine 0.66 L 0.64 L (0.72-1.25) mg/dL Glucose 185 H 169 H (70-99) mg/dL Calcium 7.9 L 8.2 L (8.6-10.8) mg/dL Adrenal panel 08/17/16 08/18/16 Range/Units 16:06 04:02 Sodium 129 L 130 L (136-145) mEq/L Potassium 4.7 H 4.8 H (3.5-4.5) mEq/L Chloride 95 L 97 L (98-109) mEq/L Carbon Dioxide 25 26 (19-29) mEq/L BUN 12 13 (8-26) mg/dL Creatinine 0.66 L 0.64 L (0.72-1.25) mg/dL Glucose 185 H 169 H (70-99) mg/dL Calcium 7.9 L 8.2 L (8.6-10.8) mg/dL - VTE Documentation of Mechanical Device: Intermittent pneumatic compression device Consult Discharge Plan - Plan Referrals: Anibal Pack MD [Non-Partnered Physician] - NO,PCP [Primary Care Provider] - (Patient has a primary physician in [place], and will make his own appt. when he returns home. He will be staying in [place] for awhile, so not sure when he will be returning. Offered to find him a primary here, and he does not want one at this time. Thank you)
[2016-08-18] MEDS ORDERED: *HR* HYDROmorphone 20 MG/20 ML PCA IVC PRN (13:29)
[2016-08-18] MEDS ORDERED: [UNRECOGNIZED DRUG - OTHER] IVC SCH (17:00)
[2016-08-18] MEDS ORDERED: CLINIMIX IVC SCH (17:00)
[2016-08-18] MEDS ORDERED: AMINO ACIDS 10% IVC SCH (17:00)
[2016-08-18] MEDS ORDERED: MVI IVC SCH (17:00)
[2016-08-18] MEDS: 0.9 % Sodium Chloride 500 ML IVC SCH (19:00)
[2016-08-19] MEDS: Ondansetron 4 MG/2 ML VIAL IVP PRN ×4 (00:20→23:58)
[2016-08-19] MEDS: Insulin LISPRO 300 UNITS/3 ML VIAL SQ SCH ×7 (00:20→23:54)
[2016-08-19] MEDS: cefOXitin 2,000 MG in D5% in Water (Mini-Bag+) 100 ML IVPB SCH ×3 (02:06→17:43)
[2016-08-19] MEDS: 0.9 % Sodium Chloride 500 ML IVC SCH (02:16)
[2016-08-19 04:52] LABS: Basophils # 0.1 K/mcL (0.0-0.2); Basophils % 0.4 %; Eosinophils # 0.2 K/mcL (0.0-0.6); Eosinophils % 1.1 %; Hematocrit 33.3 % (37.5-50.1); Hemoglobin 10.3 g/dL (12.9-16.9); Immature Granulocytes % 1.7 % (0-4); Lymphocytes % 5.4 %; Mean Corpuscular HGB Conc 30.9 g/dL (31.6-35.5); Mean Corpuscular Hemoglobin 25.1 pg (28.0-33.3); Mean Corpuscular Volume 81.2 fL (83.0-100.0); Mean Platelet Volume 9.6 fL (9.4-12.4); Monocytes # 0.9 K/mcL (0.0-1.3); Monocytes % 4.7 %; Neutrophils # 16.5 K/mcL (1.6-8.9); Platelet Count 577 K/mcL (140-400); Red Cell Distribution Width 16.3 % (11.5-14.5); Segmented Neutrophils % 86.7 %
[2016-08-19] MEDS: Albuterol 2.5 MG/3 ML NEBULIZER IH SCH ×2 (04:53→09:51)
[2016-08-19 05:31] LABS: BUN/Creatinine Ratio 15 (6-26); Blood Urea Nitrogen 11 mg/dL (8-26); Calcium 8.5 mg/dL (8.6-10.8); Carbon Dioxide 28 mEq/L (19-29); Chloride 99 mEq/L (98-109); Glucose 213 mg/dL (70-99); Osmolality,Calculated 280 (280-300); Potassium 4.5 mEq/L (3.5-4.5); Sodium 132 mEq/L (136-145); eGFR For African Americans > 60 (> 60); eGFR For Non-African Americans > 60 (> 60)
[2016-08-19] MEDS: Nicotine 21 MG PATCH.TD24 TD SCH (08:13)
[2016-08-19] MEDS: Pantoprazole 40 MG VIAL IV SCH (08:13)
[2016-08-19] MEDS: Insulin DETEMIR 100 UNIT/ML X5UNITS SQ SCH (08:14)
[2016-08-19] MEDS ORDERED: [UNRECOGNIZED DRUG - OTHER] IVC SCH ×3 (10:05→17:00)
[2016-08-19] MEDS ORDERED: CLINIMIX IVC SCH ×3 (10:05→17:00)
[2016-08-19] MEDS ORDERED: MVI IVC SCH ×3 (10:05→17:00)
[2016-08-19] MEDS ORDERED: AMINO ACIDS 10% IVC SCH ×3 (10:05→17:00)
--- NOTE | 2016-08-19 10:19 | General Surgery Progress Note ---
Date of Encounter: 08/19/16 Time of Encounter: 10:10 Subjective Patient reports: no new complaints, feels better Narrative: Postoperative day 7: Patient feeling much improved; no longer feeling "bloated" ; passing flatus and reports a small BM. He also reports copious urine output Afebrile, pulse 87, respirations 18, blood pressure 137/81. Lungs: Clear to auscultation Abdomen: Soft, less tender in the right lower quadrant. Tenderness localized to the drain sites. Active bowel sounds Extremities - diminished edema with diuresis Urine output 2200 mL for 08/18/2016; 2475 mL so far today Wound drainage: 33o mL for 08/18/2016; 100mL so far today Laboratories: White count 19.0 (previously 24.2), hemoglobin 10.3 with hematocrit 33.3; platelet count 577,000. Sodium improved to 132, potassium 4.5, chloride 99; BUN 11, creatinine 0.71 Accu-Cheks 102-212 Impression: significant improvement with percutaneous drainage RLQ anemia better with mobilization migdalia operative fluids (diuresis) Plan: stop TPN and IVF, allow regular diet Discontinue MOVERS - convert to oral analgesics Continue IV ATB (cefoxitin) pending culture results Objective Vital Signs - Last 8 Hours Temp Pulse Resp BP Pulse Ox 08/19/16 07:31 98.4 F 87 18 137/81 95 08/19/16 04:53 94 L 08/19/16 03:55 98.2 F 86 18 156/89 95 Intake and Output 08/18/16 08/19/16 08/19/16 23:59 07:59 15:59 Intake Total 2980 / 2980 450 / 450 Output Total 960 / 960 2575 / 2575 Balance 2019 / 2019 -2124 / -2124 Intake: IV Fluids 2710 / 2710 100 / 100 0.9 % Sodium Chloride 500 500 / 500 ML @ 20 mls/hr IVC .Q24H [facility] Rx#:[id number] Clinimix E 5%-15% 2210 / 2210 SOLUTION 2,000 ML Trophamine 400 ML @ 100 mls/hr IVC .Q24H [facility] with M.v.i. Adult 10 ml Rx#: [id number] Mefoxin 2,000 MG In 100 / 100 Dextrose 5% (Minibag+) 100 ML 100 ML @ 200 mls/ hr IVPB Q8H [facility] Rx#: [id number] Oral 270 / 270 350 / 350 Output: Urine 900 / 900 2475 / 2475 Wound Drainage 60 / 60 100 / 100 Right Lower Abdomen 50 / 50 80 / 80 Right Upper Abdomen 10 / 10 Other: Meal Dinner Percent of Meal Consumed 0% Weight 172.3 kg Blood Glucose* 179 182 Patient Weight 08/19/16 23:59 Weight 172.3 kg - Labs 08/19/16 04:20 08/19/16 04:20 Diabetes panel 08/19/16 Range/Units 04:20 Sodium 132 L (136-145) mEq/L Potassium 4.5 (3.5-4.5) mEq/L Chloride 99 (98-109) mEq/L Carbon Dioxide 28 (19-29) mEq/L BUN 11 (8-26) mg/dL Creatinine 0.71 L (0.72-1.25) mg/dL Glucose 213 H (70-99) mg/dL Calcium 8.5 L (8.6-10.8) mg/dL Calcium panel 08/19/16 Range/Units 04:20 Calcium 8.5 L (8.6-10.8) mg/dL Pituitary panel 08/19/16 Range/Units 04:20 Sodium 132 L (136-145) mEq/L Potassium 4.5 (3.5-4.5) mEq/L Chloride 99 (98-109) mEq/L Carbon Dioxide 28 (19-29) mEq/L BUN 11 (8-26) mg/dL Creatinine 0.71 L (0.72-1.25) mg/dL Glucose 213 H (70-99) mg/dL Calcium 8.5 L (8.6-10.8) mg/dL Adrenal panel 08/19/16 Range/Units 04:20 Sodium 132 L (136-145) mEq/L Potassium 4.5 (3.5-4.5) mEq/L Chloride 99 (98-109) mEq/L Carbon Dioxide 28 (19-29) mEq/L BUN 11 (8-26) mg/dL Creatinine 0.71 L (0.72-1.25) mg/dL Glucose 213 H (70-99) mg/dL Calcium 8.5 L (8.6-10.8) mg/dL - VTE Documentation of Mechanical Device: Intermittent pneumatic compression device Consult Discharge Plan - Plan Referrals: Kacy Prakash [Other] - 08/24/16 9:00 am Anibal Pack MD [Non-Partnered Physician] -
[2016-08-19] MEDS: *HR* OxyCODONE/APAP 5/325 TABLET PO PRN ×3 (11:58→23:53)
[2016-08-19] MEDS: Acetaminophen 325 MG TABLET PO PRN (13:59)
[2016-08-20] MEDS: cefOXitin 2,000 MG in D5% in Water (Mini-Bag+) 100 ML IVPB SCH ×3 (02:01→18:32)
[2016-08-20] MEDS: Insulin LISPRO 300 UNITS/3 ML VIAL SQ SCH ×2 (04:02→07:40)
[2016-08-20 04:16] LABS: Basophils # 0.1 K/mcL (0.0-0.2); Basophils % 0.4 %; Eosinophils # 0.2 K/mcL (0.0-0.6); Eosinophils % 1.2 %; Hematocrit 34.2 % (37.5-50.1); Hemoglobin 10.5 g/dL (12.9-16.9); Immature Granulocytes % 0.6 % (0-4); Lymphocytes # 1.2 K/mcL (0.6-4.6); Mean Corpuscular HGB Conc 30.7 g/dL (31.6-35.5); Mean Corpuscular Hemoglobin 24.9 pg (28.0-33.3); Mean Platelet Volume 9.4 fL (9.4-12.4); Monocytes # 0.8 K/mcL (0.0-1.3); Monocytes % 4.3 %; Neutrophils # 15.2 K/mcL (1.6-8.9); Platelet Count 644 K/mcL (140-400); Red Blood Count 4.22 M/mcL (4.19-5.50); Red Cell Distribution Width 16.3 % (11.5-14.5); Segmented Neutrophils % 86.5 %
[2016-08-20] MEDS: *HR* OxyCODONE/APAP 5/325 TABLET PO PRN ×3 (06:16→18:40)
[2016-08-20] MEDS: Ondansetron 4 MG/2 ML VIAL IVP PRN ×5 (06:16→23:09)
[2016-08-20] MEDS: Nicotine 14 MG PATCH.TD24 TD SCH (07:39)
--- NOTE | 2016-08-20 12:15 | General Surgery Progress Note ---
Date of Encounter: 08/20/16 Time of Encounter: 12:02 Subjective Narrative: Postoperative day 8: Patient with a multitude of complaints including: Cramping abdominal pain, chills, diaphoresis, borborygmi and diarrhea. Patient states food has no taste - examination reveals a coated tongue consistent with oral candidiasis The patient does not appear to be in any acute distress this morning. The patient 10 years to be afebrile, currently 98.6, pulse 84, respiratory rate 18, blood pressure 134/75 - all parameters appear to be stable Accu-Cheks: 129-147 - will discontinue Lungs: Clear to auscultation, no obvious abdominal pain on deep inspiration Abdomen: Soft, no tenderness right lower quadrant elicited. Active bowel sounds. Incision clean, well approximated; healing well. Urine output approximately 3450 in the last 24 hours. Percutaneous drainage approximately 225 mL for 08/19/2016; 95 mL so far today Laboratories: Leukocytosis continues to improve, 17.5 Hemoglobin hematocrit rising slowly with diuresis; 10.5/34.2. Platelet count 644,000. Microbiology: Cultures dated 08/18/16, no growth Impression:POD #8 - improved status despite multiple complaints leukocytosis decreasing new onset diarrhea - patient has been treated with ATB for staph infection to this hospital admission and during this hospitalization. High risk for AAC oral candidiasis s/p exploratory celiotomy, evacuation intra abdominal abscess, appendectomy - 08/12/2016. Per Pathology no appendix identified reucrrent intra abdominal abscess - s/p percutaneous drainage 08/18/2106. Cultures obtained at that time, no growth Plan; start antifungal therapy initiate oral metronidazole continue to monitor Vs, fever, and leukocytosis Objective Vital Signs - Last 8 Hours Temp Pulse Resp BP Pulse Ox 08/20/16 11:00 98.6 F 84 18 134/75 93 L 08/20/16 07:10 98.6 F 86 18 135/72 94 L Intake and Output 08/19/16 08/20/16 08/20/16 23:59 07:59 15:59 Intake Total 935 / 935 100 / 100 0 / 0 Output Total 30 / 30 70 / 70 25 / 25 Balance 905 / 905 30 / 30 -25 / -25 Intake: IV Fluids 100 / 100 100 / 100 Mefoxin 2,000 MG In 100 / 100 100 / 100 Dextrose 5% (Minibag+) 100 ML 100 ML @ 200 mls/ hr IVPB Q8H [facility] Rx#: [id number] Oral 835 / 835 0 / 0 0 / 0 Output: Urine 0 / 0 0 / 0 Wound Drainage 70 / 70 25 / 25 Right Lower Abdomen 0 / 0 20 / 20 Right Upper Abdomen 50 / 50 5 / 5 Other: Meal Lunch Breakfast Percent of Meal Consumed 50% 0% # Voids 6 Weight 160.1 kg Blood Glucose* 129 138 147 Patient Weight 08/20/16 23:59 Weight 160.1 kg - Labs 08/20/16 04:01 08/19/16 04:20 - VTE Documentation of Mechanical Device: Intermittent pneumatic compression device Consult Discharge Plan - Plan Referrals: Kacy Prakash [Other] - 08/24/16 9:00 am Anibal Pack MD [Non-Partnered Physician] -
[2016-08-20] MEDS: Nystatin SUSP 5 ML UD.LIQ PO SCH ×3 (12:29→21:57)
[2016-08-20] MEDS: Fluconazole 100 MG TABLET PO SCH (12:29)
[2016-08-20] MEDS: metroNIDAZOLE 500 MG TABLET PO SCH ×2 (14:57→21:57)
[2016-08-20] MEDS ORDERED: [UNRECOGNIZED DRUG - OTHER] IVC SCH (17:00)
[2016-08-20] MEDS ORDERED: MVI IVC SCH (17:00)
[2016-08-20] MEDS ORDERED: CLINIMIX IVC SCH (17:00)
[2016-08-20] MEDS ORDERED: AMINO ACIDS 10% IVC SCH (17:00)
[2016-08-20] MEDS: Acetaminophen 325 MG TABLET PO PRN (21:57)
[2016-08-21] MEDS: *HR* OxyCODONE/APAP 5/325 TABLET PO PRN ×3 (01:11→13:40)
[2016-08-21] MEDS: cefOXitin 2,000 MG in D5% in Water (Mini-Bag+) 100 ML IVPB SCH ×3 (02:34→17:37)
[2016-08-21] MEDS: Ondansetron 4 MG/2 ML VIAL IVP PRN ×3 (03:23→12:30)
[2016-08-21 03:38] LABS: Basophils # 0.1 K/mcL (0.0-0.2); Basophils % 0.6 %; Eosinophils # 0.3 K/mcL (0.0-0.6); Eosinophils % 1.9 %; Hematocrit 33.3 % (37.5-50.1); Hemoglobin 10.4 g/dL (12.9-16.9); Immature Granulocytes % 0.8 % (0-4); Immature Platelets 3.6 % (1.1-6.1); Lymphocytes # 1.5 K/mcL (0.6-4.6); Lymphocytes % 9.4 %; Mean Corpuscular HGB Conc 31.2 g/dL (31.6-35.5); Mean Corpuscular Hemoglobin 25.2 pg (28.0-33.3); Mean Corpuscular Volume 80.6 fL (83.0-100.0); Mean Platelet Volume 9.4 fL (9.4-12.4); Monocytes # 0.7 K/mcL (0.0-1.3); Monocytes % 4.5 %; Neutrophils # 12.8 K/mcL (1.6-8.9); Platelet Count 695 K/mcL (140-400); Red Blood Count 4.13 M/mcL (4.19-5.50); Red Cell Distribution Width 16.1 % (11.5-14.5); Segmented Neutrophils % 82.8 %
[2016-08-21 03:51] LABS: BUN/Creatinine Ratio 15 (6-26); Blood Urea Nitrogen 13 mg/dL (8-26); Calcium 8.4 mg/dL (8.6-10.8); Carbon Dioxide 27 mEq/L (19-29); Chloride 100 mEq/L (98-109); Glucose 151 mg/dL (70-99); Osmolality,Calculated 279 (280-300); Potassium 4.3 mEq/L (3.5-4.5); Sodium 133 mEq/L (136-145); eGFR For African Americans > 60 (> 60); eGFR For Non-African Americans > 60 (> 60)
[2016-08-21] MEDS: metroNIDAZOLE 500 MG TABLET PO SCH ×3 (07:27→20:33)
[2016-08-21] MEDS: Nicotine 14 MG PATCH.TD24 TD SCH (07:29)
[2016-08-21] MEDS: Nystatin SUSP 5 ML UD.LIQ PO SCH ×4 (07:29→20:34)
[2016-08-21] MEDS: Fluconazole 100 MG TABLET PO SCH (12:31)
--- NOTE | 2016-08-21 16:02 | General Surgery Progress Note ---
Date of Encounter: 08/21/16 Time of Encounter: 15:52 Subjective Narrative: Patient seen earlier today, approx 13:30 and again at this time POD #9 - patient describes "better night". No restlessness, pain was controlled and diarrhea has resolved Nursing reports patient refusing to ambulate, use EPCDs, or complete his incentive spirometry. He is now complaining of "pain all over" To my questioning the patient c/o bilateral upper quadrant abdominal pain - but this complaint began after showering. No N/V The patient remains afebrile, 98.6; pulse 84, (no tachycardia accompanying the complaints of pain); respiratory rate 14, Blood pressure is elevated at 178/112. The course of the day would pressure was more consistently 148/85-153/78 Lungs: Clear to auscultation without obvious pain with deep inspiration Abdomen: Soft with pain to palpation; No discernible masses or rebound, active bowel sounds. Large liquid bowel movement recorded by nursing; Wound drainage 155 mL for 08/20/2016; 155 mL so far today Labs: Leukocytosis continues to regress, 15.5; hemoglobin stable at 10.4 with hematocrit 33.3.; Platelet count 695,000 differential notable for diminishing neutrophil count - 12.8 Impression: New complaints of upper abdominal pain noted. The etiology of these nuchal points remains unclear but there are no significant corroborating signs or symptoms except for the hypertension. Patient getting the Percocet 5/ 325 not sufficient for his pain control; nursing report patient using Zofran in conjunction with his Percocet despite not being nauseated. Plan: Continue to monitor - if symptoms persist, CT abd/pelvis in AM Change Percocet 10/325 Continue Zofran The labs in a.m. Objective Vital Signs - Last 8 Hours Temp Pulse Resp BP Pulse Ox 08/21/16 15:28 98.6 F 84 14 178/112 96 08/21/16 10:49 98.4 F 79 16 148/85 95 08/21/16 08:00 98.2 F 72 18 153/78 97 Intake and Output 08/20/16 08/21/16 08/21/16 23:59 07:59 15:59 Intake Total 100 / 100 100 / 100 200 / 200 Output Total 40 / 40 110 / 110 45 / 45 Balance 60 / 60 -10 / -10 155 / 155 Intake: IV Fluids 100 / 100 100 / 100 100 / 100 Mefoxin 2,000 MG In 100 / 100 100 / 100 100 / 100 Dextrose 5% (Minibag+) 100 ML 100 ML @ 200 mls/ hr IVPB Q8H [facility] Rx#: [id number] Oral 0 / 0 0 / 0 100 / 100 Output: Urine 0 / 0 0 / 0 0 / 0 Wound Drainage 40 / 40 110 / 110 45 / 45 Right Lower Abdomen 40 / 40 60 / 60 40 / 40 Right Upper Abdomen 50 / 50 5 / 5 Other: Meal Breakfast Percent of Meal Consumed 25% Stool Size Large Stool Consistency liquid Stool Color Brown # Voids 1 # Bowel Movements 1 Weight 160.3 kg Blood Glucose* 166 135 155 Patient Weight 08/21/16 23:59 Weight 160.3 kg - Labs 08/21/16 03:16 08/21/16 03:16 Diabetes panel 08/21/16 Range/Units 03:16 Sodium 133 L (136-145) mEq/L Potassium 4.3 (3.5-4.5) mEq/L Chloride 100 (98-109) mEq/L Carbon Dioxide 27 (19-29) mEq/L BUN 13 (8-26) mg/dL Creatinine 0.84 (0.72-1.25) mg/dL Glucose 151 H (70-99) mg/dL Calcium 8.4 L (8.6-10.8) mg/dL Calcium panel 08/21/16 Range/Units 03:16 Calcium 8.4 L (8.6-10.8) mg/dL Pituitary panel 08/21/16 Range/Units 03:16 Sodium 133 L (136-145) mEq/L Potassium 4.3 (3.5-4.5) mEq/L Chloride 100 (98-109) mEq/L Carbon Dioxide 27 (19-29) mEq/L BUN 13 (8-26) mg/dL Creatinine 0.84 (0.72-1.25) mg/dL Glucose 151 H (70-99) mg/dL Calcium 8.4 L (8.6-10.8) mg/dL Adrenal panel 08/21/16 Range/Units 03:16 Sodium 133 L (136-145) mEq/L Potassium 4.3 (3.5-4.5) mEq/L Chloride 100 (98-109) mEq/L Carbon Dioxide 27 (19-29) mEq/L BUN 13 (8-26) mg/dL Creatinine 0.84 (0.72-1.25) mg/dL Glucose 151 H (70-99) mg/dL Calcium 8.4 L (8.6-10.8) mg/dL - VTE Documentation of Mechanical Device: Intermittent pneumatic compression device Consult Discharge Plan - Plan Referrals: Kacy Prakash [Other] - 08/24/16 9:00 am Anibal Pack MD [Non-Partnered Physician] -
[2016-08-21] MEDS: *HR* OxyCODONE/APAP 10/325 TABLET PO PRN (20:34)
[2016-08-22] MEDS: *HR* OxyCODONE/APAP 10/325 TABLET PO PRN ×4 (02:44→21:35)
[2016-08-22] MEDS: cefOXitin 2,000 MG in D5% in Water (Mini-Bag+) 100 ML IVPB SCH ×2 (02:44→09:12)
[2016-08-22 03:38] LABS: Basophils # 0.1 K/mcL (0.0-0.2); Basophils % 0.9 %; Eosinophils # 0.3 K/mcL (0.0-0.6); Eosinophils % 2.3 %; Hematocrit 32.1 % (37.5-50.1); Hemoglobin 9.9 g/dL (12.9-16.9); Immature Granulocytes % 0.6 % (0-4); Lymphocytes # 1.5 K/mcL (0.6-4.6); Lymphocytes % 11.5 %; Mean Corpuscular HGB Conc 30.8 g/dL (31.6-35.5); Mean Corpuscular Hemoglobin 25.1 pg (28.0-33.3); Mean Corpuscular Volume 81.3 fL (83.0-100.0); Mean Platelet Volume 9.1 fL (9.4-12.4); Monocytes # 0.7 K/mcL (0.0-1.3); Monocytes % 5.1 %; Neutrophils # 10.1 K/mcL (1.6-8.9); Platelet Count 580 K/mcL (140-400); Red Blood Count 3.95 M/mcL (4.19-5.50); Segmented Neutrophils % 79.6 %
[2016-08-22] MEDS: metroNIDAZOLE 500 MG TABLET PO SCH ×3 (09:11→21:35)
[2016-08-22] MEDS: Nicotine 14 MG PATCH.TD24 TD SCH (09:11)
[2016-08-22] MEDS: Nystatin SUSP 5 ML UD.LIQ PO SCH ×4 (09:11→21:35)
[2016-08-22] MEDS: Fluconazole 100 MG TABLET PO SCH (12:52)
--- NOTE | 2016-08-22 17:23 | General Surgery Progress Note ---
Date of Encounter: 08/22/16 Time of Encounter: 17:02 Subjective Patient reports: feels better Narrative: Postoperative day 10: Patient without complaints in contrast to yesterday. Afebrile, 98.5; pulse 78, respirations 18, blood pressure 157/75. Lungs: Clear Abdomen: Soft, minimal right lower quadrant abdominal tenderness to deep palpation. No rebound. No discernible masses. GIRISH #1 - upper drain - approx 55 mL today GIRISH #2 - lower drain - approx 30 mL today Operative cultures - 08/12 and 08/18/2016 - pansensitive E coli laboratories: WBC 12.7 - continues to improve - 15.5 yesterday Neutrophils have also improved to 10.1 Impression: POD #10 - s/p explor celiotomy, drainage intra abdominal abscess - cultures pansensitive E coli POD #4 percutaneous drainage recurrent intra abdominal abscess - cultures pansensitive E coli feeling much improved, previous complaints of bilateral upper abdominal pain and "pain all over" resolved Patient denies diarrhea, I believe this is reduced frequency, as nursing still record moderate loose stool Patient still refusing EPCD and efforts ambulate and increase activities out of bed Resolving leukocytosis Drainage - recurrent intra abdominal abscess diminishing stable anemia morbid obesity Diabetes mellitus Hypertension oral candidiasis - due to prolonged ATB therapy (prior staph infection and ruptured acute appendicitis with intra peritoneal abscess) - improved. PLAN: remove skin surya repeat CT in AM, possible removal of one of the drains Change IV meds to oral - Cipro 500 mg po BID Continue oral Flagyl for now repeat CBC in AM Objective Vital Signs - Last 8 Hours Temp Pulse Resp BP Pulse Ox 08/22/16 15:00 98.5 F 78 18 157/75 95 08/22/16 11:50 98.7 F 78 16 118/73 94 L Intake and Output 08/22/16 08/22/16 08/22/16 07:59 15:59 23:59 Intake Total 100 / 100 340 / 340 Output Total 48 / 48 37 / 37 Balance 52 / 52 303 / 303 Intake: IV Fluids 100 / 100 100 / 100 Mefoxin 2,000 MG In 100 / 100 100 / 100 Dextrose 5% (Minibag+) 100 ML 100 ML @ 200 mls/ hr IVPB Q8H [facility] Rx#: [id number] Oral 240 / 240 Output: Urine 0 / 0 Wound Drainage 48 / 48 37 / 37 Right Lower Abdomen 40 / 40 15 / 15 Right Upper Abdomen Other: Meal Lunch Stool Size Moderate Stool Consistency loose Stool Color Brown # Voids 5 Weight 158.2 kg Blood Glucose* 132 137 Patient Weight 08/22/16 23:59 Weight 158.2 kg - Labs 08/22/16 03:30 08/21/16 03:16 - VTE Documentation of Mechanical Device: Intermittent pneumatic compression device Consult Discharge Plan - Plan Referrals: Kacy Prakash [Other] Anibal Pack MD [Non-Partnered Physician] -
[2016-08-23] MEDS: *HR* OxyCODONE/APAP 10/325 TABLET PO PRN ×2 (03:34→11:36)
[2016-08-23 03:51] LABS: Hemoglobin 10.8 g/dL (12.9-16.9); Red Blood Count 4.27 M/mcL (4.19-5.50)
[2016-08-23 03:52] LABS: Basophils # 0.1 K/mcL (0.0-0.2); Basophils % 0.8 %; Eosinophils # 0.2 K/mcL (0.0-0.6); Eosinophils % 2.1 %; Hematocrit 34.5 % (37.5-50.1); Immature Granulocytes % 0.5 % (0-4); Lymphocytes # 1.7 K/mcL (0.6-4.6); Lymphocytes % 15.9 %; Mean Corpuscular HGB Conc 31.3 g/dL (31.6-35.5); Mean Corpuscular Hemoglobin 25.3 pg (28.0-33.3); Mean Corpuscular Volume 80.8 fL (83.0-100.0); Mean Platelet Volume 9.3 fL (9.4-12.4); Monocytes # 0.6 K/mcL (0.0-1.3); Monocytes % 5.2 %; Neutrophils # 8.1 K/mcL (1.6-8.9); Platelet Count 589 K/mcL (140-400); Segmented Neutrophils % 75.5 %
[2016-08-23] MEDS: metroNIDAZOLE 500 MG TABLET PO SCH (08:54)
[2016-08-23] MEDS: Nystatin SUSP 5 ML UD.LIQ PO SCH ×2 (08:55→11:37)
[2016-08-23] MEDS: Nicotine 14 MG PATCH.TD24 TD SCH (08:55)
[2016-08-23 10:52] VITALS: BP 135/79
--- NOTE | 2016-08-23 15:24 | General Surgery Progress Note ---
Date of Encounter: 08/23/16 Time of Encounter: 14:56 Subjective Patient reports: no new complaints Narrative: General Surgery Progress Note / Discharge Summary Postoperative day #11: Patient feeling well, voicing no complaints. Continues to be afebrile, 98.5; pulse 89, respirations 18, blood pressure 135/79 Lungs: Clear Abdomen: Soft, nontender. Midline incision clean and healing well. Robert have been removed. Steri-Strips applied. Upper GIRISH - approximately 50 mL so far today recorded by Nursing Lower GIRISH - approximately 5 mL so far today Review of drainage lower GIRISH has been higher than the upper GIRISH image and certainly this corroborates what I have been seeing. CT abdomen and pelvis completed this morning was personally reviewed with Dr. Villalta - near-complete resolution of previously seen right lateral abdominal abscess. Persistent in the right lower quadrant small amount of residual fluid is present. His collection appears to correspond to the lower GIRISH drain. The overall findings are significantly improved. Based on these findings - the upper GIRISH has been removed. The central line will be removed Patient will be discharged home Discharge Summary: 40-year-old morbidly obese male admitted after presenting to the [facility] emergency department 3 day history of right lower quadrant abdominal pain. The patient was extremely tender in the right lower quadrant with guarding. CT demonstrated left basilar atelectasis, extensive inflammatory stranding surrounding the tip of the cecum and multiple extraluminal gas bubbles posterior to the cecum along with a dilated inflamed appendix. Findings were consistent with a acute perforated appendicitis. Surgical recommendations included admission, nothing by mouth, IV antibiotics and appropriate pain control. Interval appendectomy would be planned in 4-6 weeks. Hospital Course: The patient was ultimately admitted to surgical services for this management. Past medical history included morbid obesity, hypertension, mal-huzlgrm-fbsmrtdbw diabetes. And recent hospitalization for a staphylococcal bacteremia. The patient indicated he required prolonged IV antibiotics followed by home therapy using doxycycline. Admission medications included Albuterol HFA 2 puffs every 4 hours as needed Ferrous gluconate 324 mg by mouth daily Lisinopril 20 mg by mouth daily Metformin 500 mg by mouth every evening ; metformin 850 mg by mouth every morning Multivitamin Allergies sulfa History: Patient is , lives in the [place] area with his ; he admits to social of smokeless tobacco; and daily alcohol consumption. He denies any illicit drug use. Over the next several days the patient continued to complain right lower quadrant abdominal pain. The patient was given nothing to eat. A CVL was placed without difficulty leflt subclavian v for continuous IV access and TPN. Leukocytosis slowly diminished but on 08/10/16, the white count increased. A repeat CT showed findings of acute perforated appendicitis with increase of periappendiceal fluid. An exploratory celiotomy was completed 08/12/16. Exploration and exposure was difficult due to the patient's body habitus. Large abscess cavity was encountered and drained. Aerobic and anaerobic cultures ultimately identified a pansensitive Escherichia coli. Tissue resembling the appendix was removed. Pathologic evaluation indicated this was necrotic fat. No appendiceal tissue was identified. Despite this finding, the patient continued to improve with slow resolution of his leukocytosis and his abdominal pain. Leukocytosis again increased on postoperative day 5, 08/17/16, with CT demonstrating new, likely connected abscesses along the right paracolic gutter. Percutaneous drainage was completed by interventional radiology the following day. Repeat cultures obtained at the time of percutaneous drainage redemonstrated pansensitive Escherichia coli. Ultimately the patient improved with leukocytosis returning to normal and his pain subsiding. CT completed, , demonstrated near-complete resolution of previously seen right lateral abdominal abscess. Persistence of a small residual fluid collection right lower quadrant. 2 drains had been placed by interventional radiology. Upper drain was removed prior to his discharge. At the time of discharge patient was in good condition. He was afebrile, vital signs of an stable. Leukocytosis had resolved, white count was 10.8. The patient demonstrated an anemia added to this prolonged acute illness. H&H on discharge 10.8 and 34.5. Most recent platelet count 589,000. Differential within normal limits. The patient is aware of the pathologic findings (no recovered appendiceal tissue) with the possibilty of recurrent appendicitis. Repeat CTs failed to demonstrate the presence of an appendix, but failure to visualize an appendix does not exclude the presence of an appendix. This was discussed with both the patient and his . Discharge instructions: Patient may shower, wash incisions with soap and water Patient may wash around the remaining pigtail catheter in the right lower quadrant with soap and water Tylenol, ibuprofen, Motrin, Advil, etc. as needed for pain Prescription for Percocet 5/325, #15, provided for pain not relieved by the [id number] medications Prescription for Cipro 500 mg by mouth twice a day for an additional 7 days Prescription for Mycostatin suspension 100,000 units per mL, 5 mL swish and swallow 4 times daily Activity as tolerated, lifting limited to less than 20 pounds Follow up in my office, 08/31/16. The patient to contact my office in the a.m. to make this appointment. Patient to empty drain 2-3 times daily and record drainage for my review on his return to my office next week Objective Vital Signs - Last 8 Hours Temp Pulse Resp BP Pulse Ox 08/23/16 10:51 98.5 F 79 18 135/79 95 08/23/16 06:59 98.4 F 65 18 117/77 94 L Intake and Output 08/22/16 08/23/16 08/23/16 23:59 07:59 15:59 Intake Total 0 / 0 Output Total 25 / 25 35 / 35 20 / 20 Balance -25 / -25 -35 / -35 -20 / -20 Intake: Oral 0 / 0 Output: Urine 0 / 0 Wound Drainage 25 / 25 35 / 35 20 / 20 Right Lower Abdomen 15 / 15 5 / 5 0 / 0 Right Upper Abdomen 10 / 10 30 / 30 20 / 20 Other: Meal Breakfast Percent of Meal Consumed 0% # Voids 4 1 Weight 154.4 kg Patient Weight 08/23/16 23:59 Weight 154.4 kg - Labs 08/23/16 03:35 08/21/16 03:16 - VTE Documentation of Mechanical Device: Intermittent pneumatic compression device Consult Discharge Plan - Plan Referrals: Kacy Prakash [Other] Anibal Pack MD [Non-Partnered Physician] -
--- NOTE | 2016-08-23 15:29 | Discharge Summary ---
Outpatient Proc Discharge Plan - Plan Instructions: John-Velasco Drain Care (DC), Open Appendectomy (DC), Exploratory Laparotomy (DC), Sepsis (DC), Abscess (GEN) Additional Instructions: Regular diet (ADA) Activity as tolerated, lifting restricted to less than 20 pounds resume home medications patient may shower, wash incision and around drain with soap and water Empty drain 2-3 times daily and record output for my review on return to my office follow up office, , 08/31/2016. Patient to call office in AM to make appointment Tylenol, ibuprofen, Motrin, Advil, Aleve, etc. as needed for pain Prescription for Percocet provided for pain not relieved by [id number] medication Prescription for Cipro 500 mg by mouth twice a day for the next 7 days Prescription for Mycostatin suspension 100,000 units/mL, 5 mL swish and swallow four times daily Prescriptions: Ciprofloxacin [Cipro] 500 mg PO BID #14 tablet Nicotine Patch [Nicoderm] 14 mg TD DAILY #10 patch.td24 Nystatin [Nystatin Suspension] 5 ml PO QID #180 ml Oxycodone HCl/Acetaminophen [Percocet 5-325 mg Tablet] 1 each PO Q6H PRN #15 tablet PRN Reason: Pain Home Medications: Albuterol Sulfate [Ventolin Hfa] 2 puff IH Q4H PRN 08/06/16 [History] Ferrous Gluconate 324 mg PO DAILY 08/06/16 [History] Lisinopril [Zestril] 20 mg PO DAILY 08/06/16 [History] Metformin [Glucophage] 500 mg PO QPM 08/06/16 [History] Metformin [Glucophage] 850 mg PO QAM 08/06/16 [History] Mv-Mn/FA/Vit K/Lycop/Lut/Coq10 [Daily Multivitamin Capsule] 1 cap PO DAILY 08/06 [History] Ciprofloxacin [Cipro] 500 mg PO BID #14 tablet 08/23/16 [Rx] Nicotine Patch [Nicoderm] 14 mg TD DAILY #10 patch.td24 08/23/16 [Rx] Nystatin [Nystatin Suspension] 5 ml PO QID #180 ml 08/23/16 [Rx] Oxycodone HCl/Acetaminophen [Percocet 5-325 mg Tablet] 1 each PO Q6H PRN #15 tablet 08/23/16 [Rx]
== END 2016-08-23 16:12 | disposition home or self-care (01) | DRG 853 ==
LOC: EMEROO 11:13 → ICNU 16:37 → 3ANU 08-07 19:54
PROVIDERS: ADMIT Surgery; ATTEND Surgery
PROC: IRDRAIN (2016-08-18 12:00)

== ENCOUNTER 2017-05-14 11:57 | Inpatient (IN) ==
[2017-05-14 13:13] LABS: Basophils # 0.1 K/mcL (0.0-0.2); Basophils % 0.3 %; Eosinophils % 0.1 %; Hematocrit 42.9 % (37.5-50.1); Hemoglobin 13.8 g/dL (12.9-16.9); Immature Granulocytes % 0.4 % (0-4); Lymphocytes # 1.2 K/mcL (0.6-4.6); Lymphocytes % 6.3 %; Mean Corpuscular HGB Conc 32.2 g/dL (31.6-35.5); Mean Corpuscular Volume 80.8 fL (83.0-100.0); Mean Platelet Volume 10.1 fL (9.4-12.4); Monocytes # 0.6 K/mcL (0.0-1.3); Monocytes % 2.9 %; Neutrophils # 17.6 K/mcL (1.6-8.9); Platelet Count 371 K/mcL (140-400); Red Blood Count 5.31 M/mcL (4.19-5.50); Red Cell Distribution Width 14.2 % (11.5-14.5)
[2017-05-14 13:29] LABS: Alanine Aminotransferase 32 Units/L (0-55); Albumin 3.9 g/dL (3.5-5.0); Alkaline Phosphatase 89 Units/L (38-126); Aspartate Amino Transferase 13 Units/L (5-34); BUN/Creatinine Ratio 19 (6-26); Bilirubin,Direct 0.6 mg/dL (0.0-0.5); Bilirubin,Indirect 0.6 mg/dL (0.0-1.2); Bilirubin,Total 1.2 mg/dL (0.2-1.2); Blood Urea Nitrogen 15 mg/dL (8-26); Calcium 9.2 mg/dL (8.6-10.8); Carbon Dioxide 25 mEq/L (19-29); Chloride 102 mEq/L (98-109); Globulin 3.9 g/dL (2.4-3.5); Glucose 166 mg/dL (70-99); Osmolality,Calculated 289 (280-300); Potassium 4.1 mEq/L (3.5-4.5); Sodium 137 mEq/L (136-145); Total Protein 7.8 g/dL (6.0-8.3); eGFR For African Americans > 60 (> 60); eGFR For Non-African Americans > 60 (> 60)
[2017-05-14 13:31] LABS: Lipase < 10 Units/L (8-78)
--- NOTE | 2017-05-14 14:20 | Emergency Department Note ---
Disposition Clinical Impression: RLQ abdominal pain Disposition: Admitted As Inpatient Condition: Fair General Adult HPI - General Chief complaint: ED GI Bleed Stated complaint: abd pain Time Seen by Provider: 05/14/17 13:11 Source: patient Mode of arrival: ambulatory Limitations: no limitations Nursing Notes Reviewed: Yes Vital Signs Reviewed: Yes - History of Present Illness HPI Narrative: Patient is a 41-year-old male with a past medical history of gastric ulcers and appendectomy presenting to the emergency department with a complaint of right lower quadrant abdominal pain and bloody stools or been going on since I o' clock this morning. Patient states that at 9:00 this morning the patient a sudden onset of right lower quadrant stabbing pain that radiated diffusely over his abdomen and into his groin. He describes the pain is constant. Worse with movement. Nothing improves the pain. States he also noticed that his stool appeared elio colored yesterday and this morning he had bright red blood in the stool. Denies any nausea or vomiting or fevers. No chest pain or shortness of breath. Patient denies any testicular tenderness or penis discharge. Pain Scale: 10 - Related Data Home Medications Medication Instructions Recorded Confirmed Lisinopril [Zestril] 20 mg PO DAILY 08/06/16 05/14/17 Mv-Mn/FA/Vit K/Lycop/Lut/Coq10 1 cap PO DAILY 08/06/16 05/14/17 [Daily Multivitamin Capsule] metFORMIN [Glucophage] 850 mg PO QAM 08/06/16 05/14/17 Azithromycin [Azithromycin 6-Tab 250 mg PO PER PKG DI 05/14/17 05/14/17 Pack] Ibuprofen [Motrin] 800 mg PO QAM 05/14/17 05/14/17 PredniSONE mg PO DAILY 05/14/17 Sour Beth Extract [Tart Beth 2,000 mg PO DAILY 05/14/17 05/14/17 Extract] Allergies Allergy/AdvReac Type Severity Reaction Status Date / Time sulfamethoxazole AdvReac Nausea Verified 05/14/17 12:01 [From Bactrim] trimethoprim [From Bactrim] AdvReac Nausea Verified 05/14/17 12:01 All systems ED: reviewed and negative except as stated. Review of Systems: As Per HPI Constitutional: Denies: fever, chills ENT ED: Denies: throat pain Cardiovascular: Denies: chest pain, dyspnea on exertion Respiratory: Denies: cough, dyspnea Gastrointestinal: Reports: abdominal pain, hematochezia. Denies: nausea, vomiting, diarrhea, constipation, hematemesis, melena Genitourinary: Denies: urgency, dysuria Musculoskeletal: Denies: back pain, neck pain Integumentary: Denies: rash Neurological: Denies: headache, weakness Past Medical History - Past Medical History Attestation: Yes The following information was validated with the patient. Medical history: Reports: diabetes, hypertension Psychiatric history: Reports: no psych history - Social History Smoking Status: Never smoker Smokeless Tobacco Status: No Alcohol use: Reports: occasionally Drug use: Reports: none Physical Exam CONSTITUTIONAL: Alert and oriented X3, well-nourished, well appearing, in no apparent distress HEAD: Normocephalic; atraumatic. EYES: PERRL, no scleral icterus. NOSE: The nose is normal in appearance without rhinorrhea RESP: Normal chest excursion with respiration; breath sounds clear and equal bilaterally; no wheezes, rhonchi, or rales CARD: Regular rhythm, without murmurs, rub or gallop ABD: Non-distended; RLQ tenderness with voluntary guarding without rigidity or rebound. : No penis discharge, rash, and no testicular tenderness. Normal cremasteric reflex bilaterally. No inguinal hernia palpated. Rectal Exam: No gross blood. hemaoccult at bedside was positive. SKIN: Normal for age and race; warm and dry; no apparent lesions - General Limitations: no limitations General appearance: alert, anxious Course Course Narrative: Patient's lab came back with leukocytosis. CT of the abdomen and pelvis with IV contrast was ordered. The results showed information in the right lower quadrant and appendix appeared to be distended with fluid. There is inflammation as well centered around the ileocecal valve and the terminal ileum is just a terminal ileitis, although recurrent appendicitis cannot be excluded. I discussed these findings with the patient he states that when undergoing his prior appendectomy in July 2016 the pathology report that was sent off the removed appendix showed that it was not actually the appendix. His doctor performing the surgery was Dr. anne. He states he had a discussion with Dr. anne at the time that he may have a recurrence of his appendicitis. I spoke with Dr. anne on the phone and discussed the patient's case and his presentation and CT findings and Dr. anne stated that he would be willing take the patient however did not offer him the opportunity to work with a new surgeon. The patient declined and states that he prefer to have Dr. anne. Elysia anne accepted the patient the plan is to take the patient to surgery tonight. I discussed this with the patient the patient agrees with the plan. Dr. Valverde requested the patient be started on Zosyn antibiotic. Vital Signs Temperature 99.3 F 05/14/17 11:58 Pulse Rate 115 05/14/17 11:58 Respiratory Rate 22 05/14/17 11:58 Blood Pressure 186/112 05/14/17 11:58 O2 Sat by Pulse Oximetry 96 05/14/17 11:58 Temperature 98.3 F 05/15/17 10:23 Pulse Rate 87 05/15/17 10:23 Respiratory Rate 18 05/15/17 11:30 Blood Pressure 140/72 05/15/17 10:23 O2 Sat by Pulse Oximetry 87 05/15/17 11:30 Oxygen Delivery Oxygen Delivery Room Air Medical Decision Making - Medical Records Medical records reviewed: Yes I reviewed the patient's medical records. - Lab Data Lab results reviewed: Yes I reviewed the patient's lab results. Result diagrams: 05/15/17 06:44 05/15/17 06:44 Lab Results 05/14/17 05/14/17 05/14/17 Range/Units 12:53 12:53 12:53 WBC 19.6 H (4.3-11.1) K/mcL RBC 5.31 (4.19-5.50) M/mcL Hgb 13.8 (12.9-16.9) g/dL Hct 42.9 (37.5-50.1) % MCV 80.8 L (83.0-100.0) fL MCH 26.0 L (28.0-33.3) pg MCHC 32.2 (31.6-35.5) g/dL RDW 14.2 (11.5-14.5) % Plt Count 371 (140-400) K/mcL MPV 10.1 (9.4-12.4) fL Immature Gran % 0.4 (0-4) % Seg Neutrophils % 90.0 % Lymphocytes % 6.3 % Monocytes % 2.9 % Eosinophils % 0.1 % Basophils % 0.3 % Neutrophils # 17.6 H (1.6-8.9) K/mcL Lymphocytes # 1.2 (0.6-4.6) K/mcL Monocytes # 0.6 (0.0-1.3) K/mcL Eosinophils # 0.0 (0.0-0.6) K/mcL Basophils # 0.1 (0.0-0.2) K/mcL Sodium 137 (136-145) mEq/L Potassium 4.1 (3.5-4.5) mEq/L Chloride 102 (98-109) mEq/L Carbon Dioxide 25 (19-29) mEq/L BUN 15 (8-26) mg/dL Creatinine 0.78 (0.72-1.25) mg/dL Est GFR ( Amer) > 60 (> 60) Est GFR (Non-Af Amer) > 60 (> 60) BUN/Creatinine Ratio 19 (6-26) Glucose 166 H (70-99) mg/dL Calculated Osmolality 289 (280-300) Calcium 9.2 (8.6-10.8) mg/dL Total Bilirubin 1.2 (0.2-1.2) mg/dL Direct Bilirubin 0.6 H (0.0-0.5) mg/dL Indirect Bilirubin 0.6 (0.0-1.2) mg/dL AST 13 (5-34) Units/L ALT 32 (0-55) Units/L Alkaline Phosphatase 89 (38-126) Units/L Troponin I 0.01 (0-0.03) ng/mL Serum Total Protein 7.8 (6.0-8.3) g/dL Albumin 3.9 (3.5-5.0) g/dL Globulin 3.9 H (2.4-3.5) g/dL Albumin/Globulin Ratio 1.0 L (1.1-2.2) Lipase < 10 (8-78) Units/L Urine Color (Yellow) Urine Clarity (Clear) Urine pH (5.0-8.0) pH Units Ur Specific [place] (1.010-1.025) Urine Protein (Neg-Trace) mg/dL Urine Glucose (UA) (Normal) mg/dL Urine Ketones (Negative) mg/dL Urine Blood (Negative) Urine Nitrite (Negative) Urine Bilirubin (Negative) Urine Urobilinogen (Normal) mg/dL Ur Leukocyte Esterase (Negative) Ur Culture Indicated? (NO) Blood Type Antibody Screen 05/14/17 05/14/17 Range/Units 12:53 14:10 WBC (4.3-11.1) K/mcL RBC (4.19-5.50) M/mcL Hgb (12.9-16.9) g/dL Hct (37.5-50.1) % MCV (83.0-100.0) fL MCH (28.0-33.3) pg MCHC (31.6-35.5) g/dL RDW (11.5-14.5) % Plt Count (140-400) K/mcL MPV (9.4-12.4) fL Immature Gran % (0-4) % Seg Neutrophils % % Lymphocytes % % Monocytes % % Eosinophils % % Basophils % % Neutrophils # (1.6-8.9) K/mcL Lymphocytes # (0.6-4.6) K/mcL Monocytes # (0.0-1.3) K/mcL Eosinophils # (0.0-0.6) K/mcL Basophils # (0.0-0.2) K/mcL Sodium (136-145) mEq/L Potassium (3.5-4.5) mEq/L Chloride (98-109) mEq/L Carbon Dioxide (19-29) mEq/L BUN (8-26) mg/dL Creatinine (0.72-1.25) mg/dL Est GFR ( Amer) (> 60) Est GFR (Non-Af Amer) (> 60) BUN/Creatinine Ratio (6-26) Glucose (70-99) mg/dL Calculated Osmolality (280-300) Calcium (8.6-10.8) mg/dL Total Bilirubin (0.2-1.2) mg/dL Direct Bilirubin (0.0-0.5) mg/dL Indirect Bilirubin (0.0-1.2) mg/dL AST (5-34) Units/L ALT (0-55) Units/L Alkaline Phosphatase (38-126) Units/L Troponin I (0-0.03) ng/mL Serum Total Protein (6.0-8.3) g/dL Albumin (3.5-5.0) g/dL Globulin (2.4-3.5) g/dL Albumin/Globulin Ratio (1.1-2.2) Lipase (8-78) Units/L Urine Color Yellow (Yellow) Urine Clarity Clear (Clear) Urine pH 6.5 (5.0-8.0) pH Units Ur Specific [place] 1.025 (1.010-1.025) Urine Protein Negative (Neg-Trace) mg/dL Urine Glucose (UA) Normal (Normal) mg/dL Urine Ketones Negative (Negative) mg/dL Urine Blood Negative (Negative) Urine Nitrite Negative (Negative) Urine Bilirubin Negative (Negative) Urine Urobilinogen Normal (Normal) mg/dL Ur Leukocyte Esterase Negative (Negative) Ur Culture Indicated? NO (NO) Blood Type O POSITIVE Antibody Screen NEGATIVE - Radiology Data Radiology results reviewed: Yes I reviewed the patient's radiology results. Chest X-Ray 05/14/17 12:02 IMPRESSION: No acute abnormality. D/ / 05/14/2017 12:37:23 Rizwan Villalta MD / [email or web address] Interpreting Provider: Rizwan Villalta MD Abdomen/Pelvis CT 05/14/17 14:10 IMPRESSION: Increased inflammation of the right lower quadrant. The appendix appears to remain, distended with fluid. However the inflammation appears more centered around the ileocecal valve and terminal ileum. Terminal ileitis would be favored although recurrent appendicitis cannot be excluded. Recommend close follow-up, a CT abdomen and pelvis with contrast should be considered. D/ / Gilbert Hector MD / Gilbert Hector MD Interpreting Provider: Gilbert Hector MD - EKG Data EKG #1 EKG attestation: Yes I reviewed and interpreted this EKG. EKG results narrative: Patient's EKG done at 13:48 shows sinus rhythm at a rate of 83 bpm. Normal axis. W[place] is 136, QRS is 100, QT is 357 and QTC is 396 user within normal limits. No signs of ST elevation or depression and no Q waves present. This is unchanged when compared to his old EKG done on 05/14/2017. Attestation Statement - Attestation Attestation: I, Ricci Bella, examined this patient and my medical decision-making was reviewed with the TRADE CLERK/PA/Advanced Practice Nurse/Resident Physician. I agree with the documented findings, disposition and treatment plan as described except to the extent set forth below. 41-year-old male presents emergency Department with concerns of right lower quadrant abdominal pain. Patient states the pain is sharp and stabbing in the right lower quadrant. It feels similar to his previous appendicitis. Patient had a complicated history of an appendectomy however the tissue sample that was sent to pathology from what was removed was apparently not the appendix. Patient was counseled by his surgeon that it was possible he could have appendicitis again in the future. CT scan performed in the emergency department shows inflammation over the possible tubular structure next to the ileum which may be his appendix versus the terminal ileum itself. It is unclear if this is a possible repeat appendicitis. Dr. maldonado performed the patient's previous surgery, he was counseled regarding the patient's case and presentation. Patient was offered the option of a different surgeon however he preferred to have Dr. maldonado again. Dr. maldonado evaluated the patient in the emergency department and will likely take to surgery.
[2017-05-14 14:32] LABS: Bilirubin,Urine Negative (Negative); Blood,Urine Negative (Negative); Clarity,Urine Clear (Clear); Color,Urine Yellow (Yellow); Glucose,Urine (UA) Normal (Normal); Ketones,Urine Negative (Negative); Leukocyte Esterase,Urine Negative (Negative); Nitrite,Urine Negative (Negative); PH,Urine 6.5 pH Units (5.0-8.0); Protein,Urine Negative (Neg-Trace); Specific Gravity,Urine 1.025 (1.010-1.025); Urobilinogen,Urine Normal (Normal)
[2017-05-14] MEDS ORDERED: *HR* Morphine 2 MG/ML SYRINGE IVP ONE ×2 (15:00→16:46)
[2017-05-14] MEDS ORDERED: Piperacillin/Tazobactam 3.375 GM in Water for inj. (sterile) 20 ML IVP ONE (16:50)
[2017-05-14] MEDS ORDERED: Nicotine 14 MG PATCH.TD24 TD SCH (17:00)
--- NOTE | 2017-05-14 18:04 | Anesthesia Evaluation PreOp ---
Date of Encounter: 05/14/17 Time of Encounter: 18:02 - Past History Planned Operation: Exploratory Celiotomy Cardiac History: HTN Pulmonary History: Asthma SURGICAL RN History: Denies Any Significant HX Other Medical History: Diabetes Type II, Other (obesity BMI+51.4, uses chewing tobacco) Anesthesia History: No Prior Anesthetic Complications, Past Anesthesia Alcohol Use: occasionally Drug use: none Medications and Allergies Lisinopril [Zestril] 20 mg PO DAILY 08/06/16 [History] Mv-Mn/FA/Vit K/Lycop/Lut/Coq10 [Daily Multivitamin Capsule] 1 cap PO DAILY 08/06 [History] metFORMIN [Glucophage] 850 mg PO QAM 08/06/16 [History] Azithromycin [Azithromycin 6-Tab Pack] 250 mg PO PER PKG DI 05/14/17 [History] Ibuprofen [Motrin] 800 mg PO QAM 05/14/17 [History] PredniSONE mg PO DAILY 05/14/17 [History] Sour Beth Extract [Tart Beth Extract] 2,000 mg PO DAILY 05/14/17 [History] 3 Allergy/AdvReac Type Severity Reaction Status Date / Time sulfamethoxazole AdvReac Nausea Verified 05/14/17 12:01 [From Bactrim] trimethoprim [From Bactrim] AdvReac Nausea Verified 05/14/17 12:01 - Meds/Allergy Pre-op Review Medications Reviewed: Yes Allergies Reviewed: Yes Beta Blockers on Current Med List: No Anesthesia Results - Labs 05/14/17 12:53 05/14/17 12:53 - Imaging EKG: report reviewed (08/06/2016 SINUS TACHYCARDIA BORDERLINE LEFT AXIS DEVIATION INCOMPLETE RIGHT BUNDLE BRANCH BLOCK Poor R wave progression) Anesthesia Exam Vital Signs/O2 Sat, Most Current Temp Pulse Resp BP Pulse Ox 99.3 F 98 18 130/66 96 05/14/17 11:58 05/14/17 16:54 05/14/17 17:36 05/14/17 17:36 05/14/17 16:54 Height: 5'11''/1.8 m Weight: 368 lbs/167 kg NPO (# of Hours): 8 Pain Scale: 10 Pain Scale Used: Numeric (1 - 10) - HEENT Pupil (Motor): EOMI Mallampati: III Teeth: Normal Oral Opening: Greater than 3 - SURGICAL RN LOC: Oriented SURGICAL RN Motor: Normal RUE, Normal LUE, Normal RLE, Normal LLE, Normal Face SURGICAL RN Sensory: Normal: RUE, LUE, RLE, LLE, Face - Cardiac Rhythm: Regular Murmur: None - Pulmonary Breath Sounds: bilateral Clear Respiratory Effort: Symmetrical Anesthesia Assess/Plan ASA Score: 3 Modified [place] Scale for Level of Consciousness: Cooperative, oriented, and tranquil Anesthetic Plan: General Monitoring Plan: Standard Monitors Recovery Plan: PACU
--- NOTE | 2017-05-14 18:28 | General Surg History&Physical ---
Date of Encounter: 05/14/17 Time of Encounter: 17:50 History of Present Illness Chief complaint: right lower quadrant abdominal pain HPI: Mr. Dewey is a 41 year old male referred for further evaluation and treatment right lower quadrant abdominal pain since approx 0900 today. Patient known to me related to a prior presentation to [facility] ED with acute perforated appendicitis , 08/06/2016. The patient was admitted, treated with IV ATB until 08/12/2016 when he was taken to the OR to undergo an exploratory celiotomy. A large complex pericecal abscess was encountered and evacuated. A tubular structure was removed but pathology demonstrated no identifiable appendiceal tissue. The patient presents now with apparent recurrent acute appendicitis. The CT was reviewed with [facility] confirming the presence of an enlarged fluid- filled appendix with periappendiceal inflammation. Pericecal inflammation is also evident. Since presentation to the emergency department the patient has requested repeated administration of IV narcotic analgesics with minimal relief. White count is elevated at 19.6, hemoglobin 13.8, hematocrit 42.9. Platelet count 371,000 with a differential showing elevated neutrophils at 17.6% Past medical history is notable for the acute perforated appendicitis as described above, 08/06/16; hypertension; [id number] diabetes mellitus ; morbid obesity and history of GI bleed in 2013 Surgical history: Tonsillectomy and adenoidectomy; uvulectomy for sleep apnea; knee surgery in the remote past; EGD, 02/2014; colonoscopy, 02/2014, with finding of a bowel ulceration as a source of the patient's anemia and GI hemorrhage; exploratory celiotomy for acute perforated appendicitis, 08/12/16; postoperative percutaneous drainage of pericecal abscess. Allergies: Patient indicates he is allergic to "sulfates" including Bactrim and ferrous sulfate Medications: Lisinopril 20 mg by mouth daily Metformin 850 mg by mouth daily Multivitamin 1 by mouth daily Beth extract Social history: Patient continues to use smokeless tobacco, at least 1 can daily ; is a history of alcohol abuse. He currently indicates he has had no alcohol since January. Previously (July 2016) history of at least one alcoholic beverage daily; he denies any illicit drug use. The patient is currently . Family history: Father is of either cardiac or GI complications; mother is still living Physical examination morbidly obese male, 1.8 m tall, 167.19 kg BMI 51.4 but it has been as high as 63.9 The patient is lying comfortably in his hospital bed but shortly after my arrival at bedside the patient began complaining of severe, diffuse abdominal pain Skin was warm, no obvious jaundice Temperature in the emergency department 99.3, pulsE from 97 to 115; respirations 18, blood pressure 175/67; SPO2 on room air 96% Lungs: Clear to auscultation, no obvious abdominal pain and deep inspiration Cardiac: Rate was regular without obvious murmurs Abdomen: Obese, diffusely tender but most pronounced in the right lower quadrant. Referred pain to the right lower quadrant from the left lower quadrant was elicited but no rebound. Well-healed midline surgical scar is evident extending from just above the umbilicus to the pubis. There were no discernible fascial defects. Extremities: Multiple cutaneous tattoos on the upper extremities; no obvious clubbing, cyanosis, or edema. Impression: 41-year-old or biliary obese male who presents to the emergency department with new onset right lower quadrant abdominal pain. The pain has been refractory to repeated administration of morphine. ER nursing indicate they have given 10 mg of IV morphine since his arrival in the emergency department. The patient is complaining of diffuse abdominal pain with tenderness most pronounced in the right lower quadrant. CT abdomen/pelvis was reviewed with [facility] confirming the clinical and radiologic findings of acute appendicitis. The appendix is enlarged and fluid-filled with periappendiceal inflammation consistent with acute appendicitis. There is also pericecal inflammation which may not be related to the acute appendicitis. Previous exploratory laparotomy following acute perforated appendicitis in July 2016 failed to remove any identifiable appendiceal tissue. Repeat exploratory ciliotomy was discussed with the patient. A right colectomy may be necessary if the appendix cannot be identified. Risks of surgery include hemorrhage, infection, intra abdominal abscess, injury to adjacent structures, respiratory failure and cardiac risks. Possible removal of a normal appendix was discussed as well as the potential for right colectomy. In the event of a right colectomy additional surgical risks include anastomotic leak, stricture/ stenosis. Past Med Surg Social Fam HX - Past Medical History Medical history: diabetes, hypertension Psychiatric history: no psych history - Social History Smoking Status: Never smoker Smokeless Tobacco Status: No Alcohol use: occasionally Drug use: none Medications and Allergies Lisinopril [Zestril] 20 mg PO DAILY 08/06/16 [History] Mv-Mn/FA/Vit K/Lycop/Lut/Coq10 [Daily Multivitamin Capsule] 1 cap PO DAILY 08/06 [History] metFORMIN [Glucophage] 850 mg PO QAM 08/06/16 [History] Azithromycin [Azithromycin 6-Tab Pack] 250 mg PO PER PKG DI 05/14/17 [History] Ibuprofen [Motrin] 800 mg PO QAM 05/14/17 [History] PredniSONE mg PO DAILY 05/14/17 [History] Sour Beth Extract [Tart Beth Extract] 2,000 mg PO DAILY 05/14/17 [History] 3 Allergy/AdvReac Type Severity Reaction Status Date / Time sulfamethoxazole AdvReac Nausea Verified 05/14/17 12:01 [From Bactrim] trimethoprim [From Bactrim] AdvReac Nausea Verified 05/14/17 12:01 Review of Systems All systems PM: A 10-system review of systems was performed and is negative for pertinent findings except as documented above in the HPI. General Surgery Exam Initial Vital Signs Temp Pulse Resp BP Pulse Ox 99.3 F 115 22 186/112 96 05/14/17 11:58 05/14/17 11:58 05/14/17 11:58 05/14/17 11:58 05/14/17 11:58 Results - Labs 05/14/17 12:53 05/14/17 12:53 Abnormal lab results WBC 19.6 K/mcL (4.3-11.1) H 05/14/17 12:53 MCV 80.8 fL (83.0-100.0) L 05/14/17 12:53 MCH 26.0 pg (28.0-33.3) L 05/14/17 12:53 Neutrophils # 17.6 K/mcL (1.6-8.9) H 05/14/17 12:53 Glucose 166 mg/dL (70-99) H 05/14/17 12:53 Direct Bilirubin 0.6 mg/dL (0.0-0.5) H 05/14/17 12:53 Globulin 3.9 g/dL (2.4-3.5) H 05/14/17 12:53 Albumin/Globulin Ratio 1.0 (1.1-2.2) L 05/14/17 12:53 All other labs normal.
[2017-05-14] MEDS ORDERED: Ipratropium/Albuterol Neb 3 ML ONE (18:33)
[2017-05-14] MEDS ORDERED: Lidocaine -MPF 2% 2 ML VIAL ONE ×2 (19:23)
[2017-05-14] MEDS ORDERED: Lidocaine -MPF 4% 5 ML AMPUL ONE (19:23)
[2017-05-14] MEDS ORDERED: *HR* Propofol 200 MG/20 ML VIAL IVP ONE (19:23)
[2017-05-14] MEDS ORDERED: *HR* Succinylcholine 200 MG/10 ML VIAL IVP ONE (19:23)
[2017-05-14] MEDS ORDERED: *HR* FentaNYL (PF) 100 MCG/2 ML VIAL ONE (19:23)
[2017-05-14] MEDS ORDERED: *HR* Midazolam HCl 2 MG/2 ML VIAL ONE (19:23)
[2017-05-14] MEDS ORDERED: *HR* Rocuronium Bromide 50 MG/5 ML VIAL ONE (19:23)
[2017-05-14] MEDS ORDERED: *HR* Labetalol 20 MG/4 ML SYRINGE IVP PRN (19:24)
[2017-05-14] MEDS ORDERED: Ondansetron 4 MG/2 ML VIAL IVP PRN ×2 (19:24→22:41)
[2017-05-14] MEDS ORDERED: Acetaminophen IV 1,000 MG/100 ML INFUS..BTL ONE (20:30)
[2017-05-14] MEDS ORDERED: *HR* HYDROmorphone 2 MG/ML SYRINGE ONE (21:01)
--- NOTE | 2017-05-14 21:43 | Operative Note ---
Date of procedure: 05/14/17 Pre-op diagnosis: acute right sided abdominal pain, acute appendicitis Post-op diagnosis: other (acute right sided abdominal pain, peritonitis) Procedure: Exploratory celiotomy with lysis of adhesions enduring 100 minutes, mobilization of the cecum and ascending colon, resection of multiple tissues adherent to the cecum; partial omentectomy Complications: None apparent Anesthesia: FELICITY Surgeon: Anibal Pack Estimated blood loss (cc): 50 IV fluids (cc): 2,000 Specimen: omentum and tissue adherent to the cecum Disposition: PACU Procedure in Detail: Brief history this is a 41-year-old male referred to surgical services after presenting to [facility] [place] ED new-onset diffuse abdominal pain/right lower quadrant abdominal pain. White count was markedly elevated and CT demonstrated findings consistent with acute appendicitis along with pericecal inflammation. This patient had presented in July 2016 with a 3 day history of progressive, worsening right lower quadrant abdominal pain with radiologic evidence of acute perforated appendicitis. The patient was admitted and managed medically for several days and then taken to surgery on 08/12/16 for exploratory celiotomy, evacuation of a pericecal abscess and appendectomy. At the time of surgery a tubular structure was described as removed however pathology was not able to identify any appendiceal tissue. The patient presents now with diffuse abdominal pain with examination seemed to localize in the right lower quadrant. The CT of the abdomen and pelvis indicated the presence of an enlarged fluid- filled appendix with periappendiceal and pericecal inflammation. Technique: After obtaining consent. The patient was taken to surgery. There he was evaluated by anesthesia and ultimately taken into the operating room. He was placed supine upon the operating room table. The patient was appropriately identified as to person and procedure. The accuracy of this information was confirmed by the procedure team. The patient was then intubated and anesthetized under the supervision of Dr Kobi Morrison. A Chau catheter was inserted. The abdomen was prepped and draped in the usual sterile fashion. A midline incision was created from the pubis to the umbilicus. The incision was extended through the cutaneous tissue to the fascia. Bleeding points were controlled with electrocautery. The fascia was incised in the midline and the abdomen entered atraumatically. Exposure was facilitated by using a self-retaining Omni tract retractor. Unfortunately, due to the patient' s body habitus it was nearly impossible to identify any of the structures in the right lower quadrant including the cecum and terminal ileum. The midline incision was extended cephalad. This afforded greater visualization of the cecum and ascending colon. Multiple dense adhesions along with fibrinous exudate and purulent fluid was evident in the pelvis and right paracolic gutter. Evidence of prior abscess consistent with the patient's previous history was evident in the right abdomen and pelvis. The purulent fluid was evacuated with sponges and/or suction device. The adhesions were dissected with the aid of either Bovie electrocautery or the Covidien Impact Dissector. The portions of omentum adherent to small bowel and in the pelvis was resected with the aid of the Covidien Harmonic dissector. The cecum and ascending colon were mobilized to the splenic flexure. Small bowel was mobilized from the pelvis. This allowed complete visualization of the cecum and ascending colon as well as the ileocecal valve. The anterior tinea was followed to the proximal tip of the cecum with no clear-cut appendiceal tissue identified. Several tubular structures were dissected from the cecum but once they were removed they did not appear to resemble the appendix. Small bowel was examined retrograde from the terminal ileum to the ligament of Treitz. One segment of small bowel densely adherent to the abdominal wall required sharp dissection and the resulting serosal injury required suture repair with interrupted 3-0 silk. There was no perforation identified in the small bowel, cecum, or descending colon. The transverse colon appeared healthy and has filled. The descending colon was decompressed but appeared healthy. The sigmoid colon was redundant coursing to the right before ascending in the left of the abdomen. When inspecting the proximal cecum, evidence of prior existence of an appendix was identified but there was no residual appendix evident. The abdomen was inspected adequate hemostasis. Sponge counts were obtained and found to be correct. Closure was initiated. The peritoneum was reapproximated with running interlocking 0 Vicryl. The fascia was reapproximated with interrupted [id number] of 0 Vicryl. The subcutaneous tissue was approximated with running 3-0 Vicryl. The skin edges were approximated with surya. Dry sterile dressings were applied. The patient was taken to recovery in stable condition. Needle, sponge, and instrument counts were correct at the close of the case.
[2017-05-14] MEDS: *HR* HYDROmorphone (PF) 1 MG/ML SYRINGE IVP PRN ×2 (21:52→22:02)
--- NOTE | 2017-05-14 22:14 | Anesthesia Evaluation Post Op ---
Date of Encounter: 05/14/17 Time of Encounter: 22:20 - Vital Signs Vital Signs: Vital Signs/O2 Sat/Glucose, Most Current Temp Pulse Resp BP Pulse Ox 05/14/17 22:02 84 16 107/59 91 05/14/17 21:52 87 16 106/59 96 05/14/17 21:42 97.7 F 78 16 109/60 98 - Lungs Lungs: Clear Ascult./Percussion - Airway Airway: Non-obstructed - Cardiovascular Regular Rate - Mental Status Mental Status: Alert & Oriented, Answers Appropriately - Pain Pain Scale: 0 - Nausea Vomiting Nausea Vomiting: Not Present - Hydration Hydration: NPO - Discharge PostOp Status: Transfer Patient to floor
[2017-05-14] MEDS ORDERED: *HR* Dextrose 50 % in Water (Syg) 50 ML SYRINGE IVP PRN (22:41)
[2017-05-14] MEDS ORDERED: D5% in Water 1,000 ML IVC PRN (22:41)
[2017-05-14] MEDS ORDERED: Dextrose Gel 15 GM PO PRN (22:41)
[2017-05-14] MEDS ORDERED: *HR* Promethazine 25 MG/ML VIAL IVP PRN (22:41)
[2017-05-14] MEDS ORDERED: FLUARIX QUAD 2017-18 36MOS UP/PF 0.5 ML SYRINGE IM ONE (22:56)
[2017-05-14] MEDS: Albuterol 2.5 MG/3 ML NEBULIZER IH SCH (23:28)
[2017-05-15] MEDS: *HR* HYDROmorphone 20 MG/20 ML PCA IVC PRN ×2 (01:13→17:50)
[2017-05-15] MEDS: Insulin LISPRO 300 UNITS/3 ML VIAL SQ SCH ×6 (01:30→21:02)
[2017-05-15] MEDS: Piperacillin/Tazobactam 3.375 GM/200 ML BAG IVPB SCH ×3 (01:31→17:38)
[2017-05-15] MEDS: Ringers Solution, Lactated 1,000 ML IVC SCH ×2 (01:31→11:32)
[2017-05-15] MEDS: Albuterol 2.5 MG/3 ML NEBULIZER IH SCH ×4 (03:33→23:20)
[2017-05-15 07:08] LABS: Basophils % 0.2 %; Hematocrit 40.6 % (37.5-50.1); Hemoglobin 12.8 g/dL (12.9-16.9); Immature Granulocytes % 0.4 % (0-4); Lymphocytes # 0.7 K/mcL (0.6-4.6); Lymphocytes % 3.4 %; Mean Corpuscular HGB Conc 31.5 g/dL (31.6-35.5); Mean Corpuscular Hemoglobin 26.3 pg (28.0-33.3); Mean Corpuscular Volume 83.5 fL (83.0-100.0); Mean Platelet Volume 10.2 fL (9.4-12.4); Monocytes # 0.8 K/mcL (0.0-1.3); Monocytes % 3.9 %; Neutrophils # 18.8 K/mcL (1.6-8.9); Platelet Count 316 K/mcL (140-400); Red Blood Count 4.86 M/mcL (4.19-5.50); Red Cell Distribution Width 14.6 % (11.5-14.5); Segmented Neutrophils % 92.1 %
[2017-05-15] MEDS ORDERED: *HR* Phenylephrine 10 MG/ML VIAL ONE (07:14)
[2017-05-15] MEDS ORDERED: *HR* Rocuronium Bromide 50 MG/5 ML VIAL ONE ×2 (07:14)
[2017-05-15] MEDS ORDERED: Ondansetron 4 MG/2 ML VIAL ONE (07:14)
[2017-05-15] MEDS ORDERED: Dexamethasone 4 MG/ML VIAL ONE (07:14)
[2017-05-15] MEDS ORDERED: Neostigmine Methylsulfate 3 MG/3 ML SYRINGE ONE (07:14)
[2017-05-15 07:22] LABS: BUN/Creatinine Ratio 15 (6-26); Blood Urea Nitrogen 21 mg/dL (8-26); Calcium 8.1 mg/dL (8.6-10.8); Carbon Dioxide 25 mEq/L (19-29); Chloride 100 mEq/L (98-109); Glucose 208 mg/dL (70-99); Osmolality,Calculated 289 (280-300); Potassium 4.9 mEq/L (3.5-4.5); Sodium 135 mEq/L (136-145); eGFR For African Americans > 60 (> 60); eGFR For Non-African Americans 58 (> 60)
[2017-05-15] MEDS: Nicotine 21 MG PATCH.TD24 TD SCH (07:46)
--- NOTE | 2017-05-15 13:49 | General Surgery Progress Note ---
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 Patient has been afebrile since surgery; heart rate 80-93; respiratory rate 19, blood pressure 118/66 to 144/71. Lungs: Clear, no obvious pain on deep inspiration (despite patient complaints of abdominal pain) Cardiac: Regular rate, no appreciable murmur Abdomen: Obese, soft, bowel sounds present - patient indicates passage of flatus Midline incision intact and dry. Dressing removed GIRISH - approx 170 mL serosanguineous fluid Laboratories: White count 20,400; hemoglobin 12.8, hematocrit 40.6; platelet count 316,000; neutrophils increased to 18.8 The increased leukocytosis and neutrophilia is likely reaction to surgery Electrolytes notable for sodium 135, potassium 4.9, BUN 21, creatinine 1.36 Operative pathology pending Urine output: None recorded since surgery Impression : POD #1 - s/p exploratory celiotomy with extended lysis of adhesions for acute peritonitis as no appendix identified. Lengthy discussion with patient and family. morbid obesity continued post op pain - incisional as well as acute peritonitis. 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 Limited pulmonary exam per CT abd/pelvis notable for bandlike airspace opacity of the periphery in the left lower lobe consistent with atelectasis versus scarring adjacent to chronic herniation of the left lateral chest wall. Chest x -ray demonstrated slight pulmonary hyperinflation with no acute consolidation, effusion, or pneumothorax. Diabetes - controlled with sliding scale coverage, accuchecks 176 - 231. If blood sugars increase - will increase insulin coverage BOUCHRA - continue IV fluids; monitor BUN/Cr hypertension - controlled Objective Vital Signs - Last 8 Hours Temp Pulse Resp BP Pulse Ox 05/15/17 11:30 18 87 05/15/17 10:23 98.3 F 87 18 140/72 93 05/15/17 07:44 97.9 F 93 19 118/66 91 Intake and Output 05/14/17 05/15/17 05/15/17 23:59 07:59 15:59 Intake Total 200 / 200 1000 / 1000 Output Total 350 / 350 110 / 110 60 / 60 Balance -350 / -350 90 / 90 940 / 940 Intake: IV Fluids 200 / 200 1000 / 1000 Lactated Ringers 1,000 ML @ 100 1000 / 1000 mls/hr IVC .Q10H [facility] Rx#: [id number] Zosyn Premix 3.375 GM/200 ML 3. 200 / 200 375 gm In 200 ml @ 50 mls/hr IVPB Q8H [facility] Rx#:[id number] Oral 0 / 0 Output: Urine 0 / 0 Estimated Blood Loss 50 / 50 Urine Amount (Catheter) 100 / 100 Gastric Drainage 100 / 100 Wound Drainage 100 / 100 110 / 110 60 / 60 Right Lower Abdomen 110 / 110 60 / 60 Other: Meal NPO for breakfast Blood Glucose* 176 188 - Labs 05/15/17 06:44 05/15/17 06:44 Diabetes panel 05/15/17 Range/Units 06:44 Sodium 135 L (136-145) mEq/L Potassium 4.9 H (3.5-4.5) mEq/L Chloride 100 (98-109) mEq/L Carbon Dioxide 25 (19-29) mEq/L BUN 21 (8-26) mg/dL Creatinine 1.36 H D (0.72-1.25) mg/dL Glucose 208 H (70-99) mg/dL Calcium 8.1 L (8.6-10.8) mg/dL Calcium panel 05/15/17 Range/Units 06:44 Calcium 8.1 L (8.6-10.8) mg/dL Pituitary panel 05/15/17 Range/Units 06:44 Sodium 135 L (136-145) mEq/L Potassium 4.9 H (3.5-4.5) mEq/L Chloride 100 (98-109) mEq/L Carbon Dioxide 25 (19-29) mEq/L BUN 21 (8-26) mg/dL Creatinine 1.36 H D (0.72-1.25) mg/dL Glucose 208 H (70-99) mg/dL Calcium 8.1 L (8.6-10.8) mg/dL Adrenal panel 05/15/17 Range/Units 06:44 Sodium 135 L (136-145) mEq/L Potassium 4.9 H (3.5-4.5) mEq/L Chloride 100 (98-109) mEq/L Carbon Dioxide 25 (19-29) mEq/L BUN 21 (8-26) mg/dL Creatinine 1.36 H D (0.72-1.25) mg/dL Glucose 208 H (70-99) mg/dL Calcium 8.1 L (8.6-10.8) mg/dL - VTE Documentation of Mechanical Device: Intermittent pneumatic compression device Consult Discharge Plan - Plan Referrals: Anibal Pack MD [Non-Partnered Physician] -
--- NOTE | 2017-05-15 16:24 | Electrocardiograph Report ---
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
[2017-05-15] MEDS: *HR* Heparin 5,000 UNIT/ML VIAL SQ SCH ×2 (17:41→21:04)
[2017-05-15] MEDS: Pantoprazole 40 MG VIAL IVP SCH (17:41)
[2017-05-15] MEDS: D5% in 0.45% NACL 1,000 ML IVC SCH (17:43)
[2017-05-16] MEDS: Piperacillin/Tazobactam 3.375 GM/200 ML BAG IVPB SCH ×4 (00:49→20:43)
[2017-05-16] MEDS: Insulin LISPRO 300 UNITS/3 ML VIAL SQ SCH ×6 (00:49→20:43)
[2017-05-16] MEDS: Albuterol 2.5 MG/3 ML NEBULIZER IH SCH ×4 (03:29→21:17)
[2017-05-16 05:40] LABS: Basophils % 0.2 %; Eosinophils # 0.1 K/mcL (0.0-0.6); Eosinophils % 0.5 %; Hematocrit 37.1 % (37.5-50.1); Hemoglobin 11.6 g/dL (12.9-16.9); Immature Granulocytes % 0.4 % (0-4); Lymphocytes # 1.4 K/mcL (0.6-4.6); Lymphocytes % 9.6 %; Mean Corpuscular HGB Conc 31.3 g/dL (31.6-35.5); Mean Corpuscular Hemoglobin 26.2 pg (28.0-33.3); Mean Corpuscular Volume 83.9 fL (83.0-100.0); Mean Platelet Volume 10.3 fL (9.4-12.4); Monocytes # 0.7 K/mcL (0.0-1.3); Monocytes % 5.1 %; Platelet Count 299 K/mcL (140-400); Red Blood Count 4.42 M/mcL (4.19-5.50); Red Cell Distribution Width 14.8 % (11.5-14.5); Segmented Neutrophils % 84.2 %
[2017-05-16 05:56] LABS: BUN/Creatinine Ratio 18 (6-26); Blood Urea Nitrogen 15 mg/dL (6-20); Calcium 8.2 mg/dL (8.6-10.3); Carbon Dioxide 29 mEq/L (23-29); Chloride 98 mEq/L (98-107); Glucose 195 mg/dL (70-105); Osmolality,Calculated 282 (280-300); Potassium 3.8 mEq/L (3.5-5.1); Sodium 133 mEq/L (136-145); eGFR For African Americans > 60 (> 60); eGFR For Non-African Americans > 60 (> 60)
[2017-05-16] MEDS: *HR* Heparin 5,000 UNIT/ML VIAL SQ SCH ×3 (06:12→22:20)
[2017-05-16] MEDS: D5% in 0.45% NACL 1,000 ML IVC SCH ×2 (08:29→19:48)
[2017-05-16] MEDS: Nicotine 21 MG PATCH.TD24 TD SCH (08:32)
[2017-05-16] MEDS: Pantoprazole 40 MG VIAL IVP SCH (08:35)
[2017-05-16] MEDS: *HR* HYDROmorphone 20 MG/20 ML PCA IVC PRN (11:53)
[2017-05-16] MEDS ORDERED: *HR* HYDROmorphone 20 MG/20 ML PCA IVC PRN (17:51)
[2017-05-16] MEDS ORDERED: D5% in 0.45% NACL 1,000 ML IVC SCH (17:53)
--- NOTE | 2017-05-16 18:05 | General Surgery Progress Note ---
Date of Encounter: 05/16/17 Time of Encounter: 17:10 Subjective Narrative: General Surgery - POD #2 Patient feeling better, greater activity out of bed but still inconsistent with incentive spirometry. Without supplemental oxygen (nasal cannula) SPO2 falls below 90% Patient appears to be tolerating clear liquids; no nausea or vomiting, passing copious flatus, no BM Patient continues afebrile, currently 98.2, respirations 16, pulse 95, blood pressure 109/67 - 143/69. Lungs: Clear; no obvious abdominal pain with deep inspiration Abdomen: Soft, significantly less tender. Active bowel sounds. No obvious rebound. Midline incision clean and dry Urine output 550 mL for 05/15/17 approximate 900 mL so far today GIRISH: 275 mL recorded for 05/15/17; 75 mL so far today - the fluid today is more serous. Laboratories: Leukocytosis improved to 14.2, hemoglobin 11.6, hematocrit 37.1 reflective of hydration; platelet count 299,000. Neutrophils improved to 12.0 percent Electrolytes notable for sodium of 133, potassium 3.8, creatinine has normalized to 0.85, BUN 15; eGFR has returned to greater than 60 Pathology: Omentum showed acutely inflamed fibrovascular adipose tissue The tissues resected from the cecum demonstrated acutely inflamed fibrovascular vascular adipose tissue as well; no identified appendix. Impression: Postoperative day #2, status post exploratory celiotomy with extended lysis of adhesions for acute abdominal pain, suspected acute appendicitis. No appendix was encountered. No other distinct etiology for the patient's abrupt onset abdominal pain/peritonitis was identified Despite the lack of surgical findings, the patient is improving; acceptable postoperative status. Will advance diet to fulls hypoxia: may be due to recent diagnosis of pneumonia (last week) as well as his morbid obesity. Patient encouraged to be active out of bed, continue his incentive spirometry with deep breathing and coughing. Continue aerosol therapy. Check acute abdominal series in a.m. Diabetes- controlled with sliding scale subcutaneous insulin coverage Hypertension- controlled Acute kidney injury-resolved Objective Vital Signs - Last 8 Hours Temp Pulse Resp BP Pulse Ox 05/16/17 15:59 16 76 05/16/17 14:49 98.2 F 95 16 109/67 93 05/16/17 11:11 98.4 F 96 16 143/69 94 05/16/17 10:38 20 93 Intake and Output 05/16/17 05/16/17 05/16/17 07:59 15:59 23:59 Intake Total 1000 / 1000 1280 / 1280 200 / 200 Output Total 620 / 620 420 / 420 35 / 35 Balance 380 / 380 860 / 860 165 / 165 Intake: IV Fluids 1000 / 1000 200 / 200 200 / 200 D5% And 0.45% Nacl 1000 Ml Bag 1000 / 1000 1,000 ML @ 75 mls/hr IVC . [id number] [facility] Rx#:[id number] Zosyn Premix 3.375 GM/200 ML 3. 200 / 200 200 / 200 375 gm In 200 ml @ 50 mls/hr IVPB Q8H [facility] Rx#:[id number] Oral 0 / 0 1080 / 1080 Output: Urine 600 / 600 300 / 300 Catheter 100 / 100 Wound Drainage Right Lower Abdomen Other: Meal Lunch Percent of Meal Consumed 0% Blood Glucose* 165 160 136 - Labs 05/16/17 05:12 05/16/17 05:12 Diabetes panel 05/16/17 Range/Units 05:12 Sodium 133 L (136-145) mEq/L Potassium 3.8 (3.5-5.1) mEq/L Chloride 98 (98-107) mEq/L Carbon Dioxide 29 (23-29) mEq/L BUN 15 (6-20) mg/dL Creatinine 0.85 (0.70-1.30) mg/dL Glucose 195 H (70-105) mg/dL Calcium 8.2 L (8.6-10.3) mg/dL Calcium panel 05/16/17 Range/Units 05:12 Calcium 8.2 L (8.6-10.3) mg/dL Pituitary panel 05/16/17 Range/Units 05:12 Sodium 133 L (136-145) mEq/L Potassium 3.8 (3.5-5.1) mEq/L Chloride 98 (98-107) mEq/L Carbon Dioxide 29 (23-29) mEq/L BUN 15 (6-20) mg/dL Creatinine 0.85 (0.70-1.30) mg/dL Glucose 195 H (70-105) mg/dL Calcium 8.2 L (8.6-10.3) mg/dL Adrenal panel 05/16/17 Range/Units 05:12 Sodium 133 L (136-145) mEq/L Potassium 3.8 (3.5-5.1) mEq/L Chloride 98 (98-107) mEq/L Carbon Dioxide 29 (23-29) mEq/L BUN 15 (6-20) mg/dL Creatinine 0.85 (0.70-1.30) mg/dL Glucose 195 H (70-105) mg/dL Calcium 8.2 L (8.6-10.3) mg/dL - VTE Documentation of Mechanical Device: Intermittent pneumatic compression device Consult Discharge Plan - Plan Referrals: Anibal Pack MD [Non-Partnered Physician] -
[2017-05-17] MEDS: Insulin LISPRO 300 UNITS/3 ML VIAL SQ SCH ×4 (02:13→12:52)
[2017-05-17] MEDS: Albuterol 2.5 MG/3 ML NEBULIZER IH SCH ×3 (03:28→18:31)
[2017-05-17] MEDS: Piperacillin/Tazobactam 3.375 GM/200 ML BAG IVPB SCH ×2 (04:38→12:53)
[2017-05-17 05:41] LABS: Basophils % 0.3 %; Eosinophils # 0.1 K/mcL (0.0-0.6); Eosinophils % 1.4 %; Hematocrit 34.1 % (37.5-50.1); Hemoglobin 10.6 g/dL (12.9-16.9); Immature Granulocytes % 0.3 % (0-4); Lymphocytes # 1.1 K/mcL (0.6-4.6); Lymphocytes % 12.1 %; Mean Corpuscular HGB Conc 31.1 g/dL (31.6-35.5); Mean Corpuscular Hemoglobin 26.1 pg (28.0-33.3); Mean Platelet Volume 10.2 fL (9.4-12.4); Monocytes # 0.7 K/mcL (0.0-1.3); Monocytes % 7.4 %; Neutrophils # 7.1 K/mcL (1.6-8.9); Platelet Count 261 K/mcL (140-400); Red Blood Count 4.06 M/mcL (4.19-5.50); Red Cell Distribution Width 14.6 % (11.5-14.5); Segmented Neutrophils % 78.5 %
[2017-05-17 05:57] LABS: Hemoglobin A1C 6.8 %
[2017-05-17] MEDS: *HR* Heparin 5,000 UNIT/ML VIAL SQ SCH ×2 (06:33→15:44)
[2017-05-17] MEDS: Pantoprazole 40 MG VIAL IVP SCH (08:28)
[2017-05-17] MEDS: Nicotine 21 MG PATCH.TD24 TD SCH (08:29)
[2017-05-17 10:43] VITALS: BP 117/69
[2017-05-17] MEDS ORDERED: *HR* OxyCODONE/APAP 5/325 TABLET PO PRN (17:42)
[2017-05-17] MEDS ORDERED: Amoxicillin/Clavulanate 500 MG TABLET PO SCH (17:45)
--- NOTE | 2017-05-17 17:51 | General Surgery Progress Note ---
Date of Encounter: 05/17/17 Time of Encounter: 17:44 Subjective Patient reports: no new complaints, feels better (anxious to go home) Narrative: General Surgery - POD#3 - Progress Note/Discharge Summary Patient doing better, denies pain; nursing reports 2 large bowel movements. Patient continues to be afebrile, 97.6, pulse 83, respirations 18, blood pressure 117/69. Lungs: Clear Cardiac: Regular rate, no appreciable murmurs; no tachycardia Abdomen: Morbidly obese, soft with active bowel sounds. Midline incision clean , dry; skin edges well approximated; no drainage Acute abdominal series: Low lung volumes with bronchovascular crowding; dominance of interstitial lung markings bilaterally without evidence focal consolidative pneumonia. Markedly dilated loops of bowel with copious gas and stool. No obvious pneumoperitoneum. Findings consistent with resolving postop ileus Laboratories: White count 9.0 with resolution of leukocytosis; we will go with 10.6, hematocrit 34.1 - this mild anemia reflective of IV fluids administered before, during and after surgery. Neutrophilia resolves, 7.1 Impression: Postoperative day #3- patient "desperate to go home" Tolerating full liquids; diminishing abdominal pain; moving his bowels Plan: Discharge home Hospital course: 41-year-old male referred to surgical services for further evaluation and treatment recurrent right lower quadrant abdominal pain that started abruptly the morning of admission, 05/14/17. Findings, including CT of the abdomen/ pelvis, were consistent with recurrent acute appendicitis. The patient underwent surgery for an acute perforated appendicitis in July,, with no appendiceal tissue identified. This was discussed in detail with the patient with the patient deciding to proceed with repeat exploratory celiotomy. This was completed, 05/14/17; with thorough examination of the entire small bowel and cecum. No appendix was identified. Inflammatory fluid was evident but the etiology not determined. Postoperatively the patient had an unremarkable course with slow reduction in his abdominal pain, resumption of diet, and return of bowel activity. The patient remained afebrile, hemodynamically stable and was eventually discharged home at his request on postoperative day 3, 05/17/17. Discharge diagnoses: Acute peritonitis of undetermined etiology Morbid obesity Diabetes Hypertension History of GI bleed, 2013, secondary to bowel ulceration, secondary to nonsteroidal anti-inflammatory overuse; no obvious recurrence to date History of previous acute perforated appendicitis, March, 2017. Status on discharge: Good Instructions: Regular (diabetic) diet Patient may shower, wash incision with soap and water Activity as tolerated, lifting limited to less than 20 pounds Tylenol as needed for pain Prescription for Percocet 5/325, #12, one every 6 hours as needed for pain not relieved by Tylenol (patient aware of the limited prescription for Percocet) Patient to resume home meds Follow-up in the office, 05/24/17; patient call office in the a.m. Objective Vital Signs - Last 8 Hours Temp Pulse Resp BP Pulse Ox 05/17/17 11:12 18 93 05/17/17 10:42 97.6 F 83 18 117/69 93 Intake and Output 05/17/17 05/17/17 05/17/17 07:59 15:59 23:59 Intake Total 910 / 910 440 / 440 Output Total 655 / 655 0 / 0 Balance 255 / 255 440 / 440 Intake: IV Fluids 200 / 200 200 / 200 Zosyn Premix 3.375 GM/200 ML 3. 200 / 200 200 / 200 375 gm In 200 ml @ 50 mls/hr IVPB Q8H [facility] Rx#:[id number] Oral 710 / 710 240 / 240 Output: Urine 600 / 600 0 / 0 Wound Drainage 55 / 55 0 / 0 Right Lower Abdomen 55 / 55 0 / 0 Other: Stool Size Large Stool Consistency formed Stool Characteristics Normal for Patient Stool Color Brown # Bowel Movements 1 Weight 168.24 kg Blood Glucose* 120 167 Patient Weight 05/17/17 23:59 Weight 168.24 kg - Labs 05/17/17 05:14 05/16/17 05:12 Diabetes panel 05/17/17 Range/Units 05:14 Hemoglobin A1c 6.8 H ( - 5.6) % - VTE Documentation of Mechanical Device: Intermittent pneumatic compression device Consult Discharge Plan - Plan Referrals: Anibal Pack MD [Non-Partnered Physician] -
--- NOTE | 2017-05-17 18:03 | Discharge Summary ---
Outpatient Proc Discharge Plan - Plan Additional Instructions: Regular (diabetic) diet Patient may shower, wash incision with soap and water Patient to resume home meds Activity as tolerated, lifting limited to less than 20 pounds Tylenol as needed for pain Prescription for Percocet 5/325, #12, one every 6 hours as needed for pain not limited by Tylenol Follow-up in the office, 05/24/17. Patient to call office in a.m. to make this appointment. Prescriptions: Amoxicillin/Clavulanate [Augmentin] 500 mg PO TIDWM #21 tablet Nicotine Patch [Nicoderm] 21 mg TD DAILY #14 patch.td24 OxyCODONE/APAP 5/325 [Percocet 5/325 MG] 1 each PO Q6H PRN #12 tablet PRN Reason: Pain Home Medications: Lisinopril [Zestril] 20 mg PO DAILY 08/06/16 [History] Mv-Mn/FA/Vit K/Lycop/Lut/Coq10 [Daily Multivitamin Capsule] 1 cap PO DAILY 08/06 [History] metFORMIN [Glucophage] 850 mg PO QAM 08/06/16 [History] PredniSONE mg PO DAILY 05/14/17 [History] Sour Beth Extract [Tart Beth Extract] 2,000 mg PO DAILY 05/14/17 [History] Amoxicillin/Clavulanate [Augmentin] 500 mg PO TIDWM #21 tablet 05/17/17 [Rx] Nicotine Patch [Nicoderm] 21 mg TD DAILY #14 patch.td24 05/17/17 [Rx] OxyCODONE/APAP 5/325 [Percocet 5/325 MG] 1 each PO Q6H PRN #12 tablet 05/17/17 [ Rx]
[2017-05-17] MEDS ORDERED: FLUARIX QUAD 2017-18 36MOS UP/PF 0.5 ML SYRINGE IM ONE (18:43)
== END 2017-05-17 19:20 | disposition home or self-care (01) | DRG 330 ==
LOC: EMEROO 11:57 → 3ANU 11:57
PROVIDERS: ADMIT Surgery; ATTEND Surgery

== ENCOUNTER 2018-01-15 12:38 | Inpatient (IN) ==
--- NOTE | 2018-01-15 13:34 | Emergency Department Note ---
Disposition Clinical Impression: Intra-abdominal abscess Disposition: Admitted As Inpatient Condition: Good Time of Disposition: 17:35 General Adult HPI - General Chief complaint: ED Abdominal Pain Stated complaint: Septic Time Seen by Provider: 01/15/18 12:41 Source: patient Mode of arrival: ambulatory Limitations: no limitations Nursing Notes Reviewed: Yes Vital Signs Reviewed: Yes - History of Present Illness HPI Narrative: 42 year old obese white male presents for "sepsis." 2 days ago, started getting sweats and feeling weak. RLQ abd pain moving up to RUQ that is constant sharp. States pain now is 8/10. Taking tylenol and percocet helps with pain. Associated symptoms of swelling in RLQ abd, headache, constipation, and an episode of vomiting on Sunday. Denies nausea, fever, chills, chest pain, shortness of breath. Patient reports having 3rd appendectomy 1 week ago performed by [address] Blas. Dr. Whiting performed first two appendectomies. Patient states this feels the same as when he had sepsis after appendix rupture before first appendectomy. Pain Scale: 9 - Related Data Home Medications Medication Instructions Recorded Confirmed Citalopram [CeleXA] 20 mg PO DAILY 12/18/17 01/15/18 Ferrous Gluconate 324 mg PO DAILY 12/18/17 01/15/18 Losartan/HCTZ [Hyzaar 50-12.5 1 each PO DAILY 12/18/17 01/15/18 Tablet] Multivitamin [One Daily 1 tab PO DAILY 12/18/17 01/15/18 Multivitamin] metFORMIN [Glucophage] 500 mg PO BIDWM 12/18/17 01/15/18 Acetaminophen [Tylenol] 325 mg PO Q6H PRN 01/08/18 01/15/18 Previous Rx's Medication Instructions Recorded Ciprofloxacin [Cipro] 500 mg PO BID 5 Days #10 tablet 01/08/18 MetroNIDAZOLE [Flagyl] 500 mg PO BID 5 Days #10 capsule 01/08/18 OxyCODONE/APAP 7.5/325 [Percocet 1 each PO Q8HR PRN 7 Days #21 01/08/18 7.5/325 MG] tablet Allergies Allergy/AdvReac Type Severity Reaction Status Date / Time sulfamethoxazole AdvReac Nausea Verified 01/15/18 12:42 [From Bactrim] trimethoprim [From Bactrim] AdvReac Nausea Verified 01/15/18 12:42 All systems ED: reviewed and negative except as stated. Past Medical History - Past Medical History Medical history: Reports: asthma, diabetes, hyperlipidemia, hypertension, other Surgical history: Reports: other Psychiatric history: Reports: anxiety - Social History Smoking Status: Never smoker Smokeless Tobacco Status: No Alcohol use: Reports: occasionally Drug use: Reports: marijuana Physical Exam - General Limitations: no limitations General appearance: alert - Head Head exam: atraumatic, normocephalic, normal inspection - Eye Eye exam: Present: normal appearance, PERRL, EOMI - Expanded Eye Exam Pupils: Left: reactive - Neck Neck exam: Present: normal inspection, full ROM, trachea midline - Chest Chest inspection: Present: normal inspection, symmetric chest wall rise - Respiratory Respiratory exam: Present: normal lung sounds bilaterally - Cardiovascular Cardiovascular exam: Present: regular rate, normal rhythm, normal heart sounds - Abdominal Exam Abdominal exam: Present: soft, tenderness, normal bowel sounds, incision (Well- healed incisions with surrounding bruising. No drainage, erthyema, or purulence) . Absent: distention, guarding, rebound, rigidity, bruit Abdominal tenderness: Present: RLQ - Extremities Exam Extremities exam: Present: normal inspection, full ROM. Absent: tenderness, pedal edema - Neurological Exam Neurological exam: Present: alert, oriented X3, CN II-XII intact. Absent: motor sensory deficit - Psychiatric Psychiatric exam: Present: normal affect, normal mood - Skin Skin exam: Present: warm, dry, intact, normal color Course Course Narrative: 42 year old presents for 2 days sweating, weakness, and RLQ abd pain. Had 3rd appendectomy [address] Blas. Patient is alert and oriented, hemodynamically stable, and of non-toxic appearance. Afebrile, heart rate 72, resp rate 18, blood pressure 148/84, O2 sat 97. On exam, abdomen is soft and obese, normal bowel sounds. There are well-healed surgical incisions with surrounding bruising in LLQ and infraumbilical. No drainage, erythema, or purulence. RLQ abdomen tender to palpation. Review of medical records shows history of perforated appendicitis, intra- abdominal abscess and septic shock. Medical history includes diabetes, hypertension, and hyperlipidemia. Spoke with Dr. Blas to inform about patient. He recommends CT and labwork and to inform surgeon on-call Dr. T will results. Will provide [place] for pain. - Reevaluation(s) Reevaluation #1: Elevated WBC 13.6 with elevated neutrophils. Improved from 01/09/2018: WBC 14.9 and neutrophils 13.4. Elevated lipase 138. BMP unremarkable. UA negative. Patient states pain has not improved 01/04. Will provide fentanyl. Patient states pain is improved to 3/10. CT abdomen/pelvis reveals abscess 9.0 x 5.8 x 6.6 cm in the right lower quadrant adjacent to the presumed appendiceal stump. Spoke with general surgeon performance solutions specialist Dr. Marc Brody. He recommends calling IR to get abscess drained and start patient on IV antibiotics. Patient last ate last night 7: 30pm. Spoke with interventional radiologist Dr. Stewart who agrees to drain tomorrow morning. Will start on IV zosyn. Discussed results with patient. Patient voiced understanding and is agreeable to admission. Time: 17:24 Vital Signs Temperature 97.9 F 01/15/18 12:41 Pulse Rate 72 01/15/18 12:41 Respiratory Rate 18 01/15/18 12:41 Blood Pressure 148/84 01/15/18 12:41 O2 Sat by Pulse Oximetry 97 01/15/18 12:41 Temperature 97.9 F 01/15/18 12:50 Pulse Rate 73 01/15/18 16:30 Respiratory Rate 20 01/15/18 16:30 Blood Pressure 141/73 01/15/18 16:30 O2 Sat by Pulse Oximetry 98 01/15/18 16:30 Oxygen Delivery Oxygen Delivery Room Air Medical Decision Making - [facility] Narrative Medical decision making narrative: Abdomen/Pelvis CT 01/15/18 13:38 IMPRESSION: New 9.0 x 5.8 x 6.6 cm AP/TR cc loculated fluid collection in the right lower quadrant adjacent to the presumed appendiceal stump, consistent with abscess. D/ / Kvng Stewart / Kvng Stewart Interpreting Provider: Kvng Stewart - Medical Records Medical records reviewed: Yes I reviewed the patient's medical records. - Lab Data Lab results reviewed: Yes I reviewed the patient's lab results. Result diagrams: 01/15/18 13:05 01/15/18 13:05 - Radiology Data Radiology results reviewed: Yes I reviewed the patient's radiology results. Attestation Statement - Attestation Attestation: I examined this patient and my medical decision-making was reviewed with the Resident Physician. I agree with the documented findings, disposition and treatment plan as described except to the extent set forth below. Findings consistent with abdominal abscess. Patient will be admitted to the hospitalist service with consultation to general surgery and interventional radiology for percutaneous drainage. Broad-spectrum antibiotics will be initiated as to cover for intra-abdominal processes.
[2018-01-15] MEDS ORDERED: Isovue-370 500 ML INFUS..BTL IV ONE (13:38)
[2018-01-15] MEDS ORDERED: *HR* HYDROcodone/Acet 5/325 mg TABLET PO ONE (13:41)
[2018-01-15 14:09] LABS: Basophils # 0.1 K/mcL (0.0-0.2); Basophils % 0.6 %; Eosinophils # 0.2 K/mcL (0.0-0.6); Eosinophils % 1.4 %; Hematocrit 40.3 % (37.5-50.1); Immature Granulocytes % 0.6 % (0-4); Lymphocytes # 1.4 K/mcL (0.6-4.6); Lymphocytes % 10.1 %; Mean Corpuscular HGB Conc 32.3 g/dL (31.6-35.5); Mean Corpuscular Hemoglobin 27.3 pg (28.0-33.3); Mean Corpuscular Volume 84.7 fL (83.0-100.0); Monocytes # 0.9 K/mcL (0.0-1.3); Monocytes % 6.5 %; Platelet Count 414 K/mcL (140-400); Red Blood Count 4.76 M/mcL (4.19-5.50); Red Cell Distribution Width 14.4 % (11.5-14.5); Segmented Neutrophils % 80.8 %
[2018-01-15 14:19] LABS: Bilirubin,Urine Negative (Negative); Blood,Urine Negative (Negative); Clarity,Urine Clear (Clear); Color,Urine Yellow (Yellow); Glucose,Urine (UA) Normal (Normal); Ketones,Urine Negative (Negative); Leukocyte Esterase,Urine Negative (Negative); Nitrite,Urine Negative (Negative); Protein,Urine Trace mg/dL (Neg-Trace); Specific Gravity,Urine 1.022 (1.010-1.025); Urobilinogen,Urine Normal (Normal)
[2018-01-15 14:22] LABS: Bacteria,Urine None Seen per hpf (None-Few); Hyaline Casts,Urine None Seen per lpf (None-Few); Squamous Epithelial Cell,Urine Moderate per lpf (None-Few); WBC,Urine 0-3 per hpf (0-3)
[2018-01-15 14:26] LABS: BUN/Creatinine Ratio 15 (6-26); Blood Urea Nitrogen 10 mg/dL (6-20); Calcium 9.3 mg/dL (8.6-10.3); Carbon Dioxide 30 mEq/L (23-29); Chloride 99 mEq/L (98-107); Glucose 175 mg/dL (70-105); Lipase 138 Units/L (11-82); Osmolality,Calculated 283 (280-300); Sodium 135 mEq/L (136-145); eGFR For Non-African Americans > 60 (> 60)
[2018-01-15] MEDS ORDERED: *HR* FentaNYL (PF) 100 MCG/2 ML VIAL IVP ONE (16:45)
[2018-01-15] MEDS ORDERED: Piperacillin/Tazobactam 3.375 GM in 0.9 % Sodium Chloride Mini Bag 100 ML IVPB ONE (17:01)
[2018-01-15] MEDS ORDERED: *HR* HYDROmorphone (PF) 1 MG/ML SYRINGE IM ONE (18:09)
[2018-01-15] MEDS ORDERED: 0.9 % Sodium Chloride 1,000 ML IVC ONE (18:20)
[2018-01-15] MEDS: D5% in 0.45% NACL w KCl 20 MEQ/1,000 ML MLS IVC SCH (20:37)
[2018-01-15] MEDS: *HR* OxyCODONE Immed Rel 5 MG TABLET PO PRN (21:14)
[2018-01-15] MEDS: Nicotine 7 MG PATCH.TD24 TD SCH (22:30)
[2018-01-15] MEDS: Piperacillin/Tazobactam 3.375 GM in 0.9 % Sodium Chloride Mini Bag 100 ML IVPB SCH (23:33)
[2018-01-15] MEDS ORDERED: traMADol 50 MG TABLET PO ONE (23:47)
[2018-01-16] MEDS: *HR* OxyCODONE Immed Rel 5 MG TABLET PO PRN ×3 (04:02→18:02)
[2018-01-16] MEDS: *HR* Heparin 5,000 UNIT/ML VIAL SQ SCH ×2 (05:04→18:02)
[2018-01-16] MEDS: D5% in 0.45% NACL w KCl 20 MEQ/1,000 ML MLS IVC SCH ×2 (08:20→19:57)
[2018-01-16] MEDS: Piperacillin/Tazobactam 3.375 GM in 0.9 % Sodium Chloride Mini Bag 100 ML IVPB SCH ×2 (08:20→16:32)
[2018-01-16] MEDS: Nicotine 7 MG PATCH.TD24 TD SCH (08:21)
[2018-01-16] MEDS ORDERED: Ketorolac 30 MG/ML VIAL IVP PRN (08:29)
[2018-01-16] MEDS ORDERED: 0.9 % Sodium Chloride 500 ML ONE (09:22)
[2018-01-16 09:23] LABS: INR 1.2; Prothrombin Time 13.7 Seconds (9.4-12.1)
[2018-01-16] MEDS ORDERED: *HR* Midazolam HCl 2 MG/2 ML VIAL IVP ONE (09:23)
[2018-01-16] MEDS ORDERED: *HR* FentaNYL (PF) 100 MCG/2 ML VIAL IVP ONE (09:23)
--- NOTE | 2018-01-16 09:41 | General Surg History&Physical ---
<Ivy Gaines E - Last Filed: 01/16/18 09:36> Date of Encounter: 01/16/18 Time of Encounter: 09:36 Assessment and Plan (1) Intra-abdominal abscess Current Visit: Yes Status: Acute The assessment and plan as outlined above was discussed with the patient and/or family members who expressed understanding and agreement. All questions were answered. IR drainage of abdominal abscess IV antibiotics- zosyn IV fluids Pain medication as needed Anti-nausea meds as needed Serial abdominal exams Will continue to monitor (2) Essential hypertension Current Visit: Yes Status: Chronic The assessment and plan as outlined above was discussed with the patient and/or family members who expressed understanding and agreement. All questions were answered. Continue Losartan Potassium - HCTZ 50-12-5 once a day (3) Type 2 diabetes mellitus Current Visit: Yes Status: Chronic The assessment and plan as outlined above was discussed with the patient and/or family members who expressed understanding and agreement. All questions were answered. Continue Metformin HCL 500 mg BID with meals Qualifiers: Diabetes mellitus longterm insulin use: without superintendent terminal use Diabetes mellitus complication status: without complication Qualified Code(s): E11.9 - Type 2 diabetes mellitus without complications History of Present Illness Chief complaint: abdominal pain HPI: Mr. Dewey is a 42 year old male stated that 3 days ago he started feeling weak, haing sweats, headaches, constipation, and vomited Sunday. He is currently . He had an appendectomy on 01/08/[address] Blas. He states this was his third appendectomy. He said he feels the same as when he had sepsis after he had his appendix rupture before first appendectomy. He states the pain is moving around to his back now and he is nauseous. Past Med Surg Social Fam HX - Past Medical History Medical history: asthma, diabetes, hyperlipidemia, hypertension, other Additional medical history: sleep apnea, anxiety, ED Psychiatric history: anxiety - Past Surgical History Surgical History: appendectomy, other Additional surgical history: tonsils and adnoids. appy. left knee scope, exploratory celiotomy with intraoperative drainage and appendectomy, Staph infection on left arm, egd, colonoscopy, left knee scope - Social History Smoking Status: Never smoker Smokeless Tobacco Status: Yes (chew) Alcohol use: occasionally Drug use: marijuana Medications and Allergies Citalopram [CeleXA] 20 mg PO DAILY 12/18/17 [History] Ferrous Gluconate 324 mg PO DAILY 12/18/17 [History] Losartan/HCTZ [Hyzaar 50-12.5 Tablet] 1 each PO DAILY 12/18/17 [History] Multivitamin [One Daily Multivitamin] 1 tab PO DAILY 12/18/17 [History] metFORMIN [Glucophage] 500 mg PO BIDWM 12/18/17 [History] Acetaminophen [Tylenol] 325 mg PO Q6H PRN 01/08/18 [History] Ciprofloxacin [Cipro] 500 mg PO BID 5 Days #10 tablet 01/08/18 [Rx] MetroNIDAZOLE [Flagyl] 500 mg PO BID 5 Days #10 capsule 01/08/18 [Rx] OxyCODONE/APAP 7.5/325 [Percocet 7.5/325 MG] 1 each PO Q8HR PRN 7 Days #21 tablet 01/08/18 [Rx] Amoxicillin/Clavulanate [Augmentin] 875 mg PO BIDWM 14 Days #28 tablet 01/17/18 [Rx] OxyCODONE/APAP 5/325 [Percocet 5/325 MG] 1 each PO Q8HR PRN 5 Days #15 tablet [Rx] 3 Allergy/AdvReac Type Severity Reaction Status Date / Time sulfamethoxazole AdvReac Nausea Verified 01/15/18 12:42 [From Bactrim] trimethoprim [From Bactrim] AdvReac Nausea Verified 01/15/18 12:42 Review of Systems All systems PM: The remainder of the systems were reviewed and are negative - Constitutional no chills, no fever(s) - Cardiovascular chest pain (pain from abdomen radiating to lower right chest), no chest pain with activity, no dyspnea, no irregular heart rhythm, no radiating jaw, neck or arm pain - Respiratory no cough, no dyspnea, no chest congestion - Gastrointestinal abdominal pain, bloating, nausea, vomiting (sunday), no hematemesis General Surgery Exam Initial Vital Signs Temp Pulse Resp BP Pulse Ox 97.9 F 72 18 148/84 97 01/15/18 12:41 01/15/18 12:41 01/15/18 12:41 01/15/18 12:41 01/15/18 12:41 - General physical appearance well developed, well nourished, moderate distress - Neck no masses, no bruits, trachea midline - Respiratory normal expansion, normal respiratory effort, clear to auscultation - Cardiovascular Cardiovascular exam: Present: RRR, no murmurs/rubs/gallops - Abdomen Abdomen general surgery: Present: bowel sounds present, distended (right side), tender, guarding, rebound Abdominal Tenderness: Present: epigastic, RUQ, RLQ - Incision Incision: Present: clean and dry, intact - Musculoskeletal Present: normal posture - Psychiatric Psychiatric general surgery: Present: oriented to person, oriented to place, oriented to time, angry (PAtient refused blood draw for Pt/INR until he was given something for pain and nausea, he said he hasnt slept all night and would just like osmething that helps his pain. ) Results - Labs 01/15/18 13:05 01/15/18 13:05 Abnormal lab results WBC 13.6 K/mcL (4.3-11.1) H 01/15/18 13:05 MCH 27.3 pg (28.0-33.3) L 01/15/18 13:05 Plt Count 414 K/mcL (140-400) H D 01/15/18 13:05 Neutrophils # 11.0 K/mcL (1.6-8.9) H 01/15/18 13:05 PT 13.7 Seconds (9.4-12.1) H 01/16/18 08:33 Sodium 135 mEq/L (136-145) L 01/15/18 13:05 Carbon Dioxide 30 mEq/L (23-29) H 01/15/18 13:05 Creatinine 0.65 mg/dL (0.70-1.30) L 01/15/18 13:05 Glucose 175 mg/dL (70-105) H 01/15/18 13:05 POC Glucose 213 mg/dL (70-99) H 01/16/18 05:28 Lipase 138 Units/L (11-82) H 01/15/18 13:05 Urine Microscopic RBC 3-5 per hpf (0-3) H 01/15/18 14:06 Ur Squamous Epith Cells Moderate per lpf (None-Few) H 01/15/18 14:06 All other labs normal. <Felix Blas - Last Filed: 01/17/18 12:34> Date of Encounter: 01/16/18 History of Present Illness HPI: Mr. Dewey is a 42 year old male Review of Systems All systems PM: The remainder of the systems were reviewed and are negative General Surgery Exam Initial Vital Signs Temp Pulse Resp BP Pulse Ox 97.9 F 72 18 148/84 97 01/15/18 12:41 01/15/18 12:41 01/15/18 12:41 01/15/18 12:41 01/15/18 12:41 Results - Labs 01/17/18 03:25 01/17/18 03:25 Abnormal lab results Hgb 11.2 g/dL (12.9-16.9) L D 01/17/18 03:25 Hct 35.8 % (37.5-50.1) L 01/17/18 03:25 MCH 26.5 pg (28.0-33.3) L 01/17/18 03:25 MCHC 31.3 g/dL (31.6-35.5) L 01/17/18 03:25 PT 13.7 Seconds (9.4-12.1) H 01/16/18 08:33 Sodium 133 mEq/L (136-145) L 01/17/18 03:25 Glucose 210 mg/dL (70-105) H 01/17/18 03:25 POC Glucose 219 mg/dL (70-99) H 01/16/18 16:34 Calcium 8.5 mg/dL (8.6-10.3) L 01/17/18 03:25 Urine Microscopic RBC 3-5 per hpf (0-3) H 01/15/18 14:06 Ur Squamous Epith Cells Moderate per lpf (None-Few) H 01/15/18 14:06 Diabetes panel 01/17/18 Range/Units 03:25 Sodium 133 L (136-145) mEq/L Potassium 3.8 (3.5-5.1) mEq/L Chloride 100 (98-107) mEq/L Carbon Dioxide 27 (23-29) mEq/L BUN 9 (6-20) mg/dL Creatinine 0.70 (0.70-1.30) mg/dL Glucose 210 H (70-105) mg/dL Calcium 8.5 L (8.6-10.3) mg/dL Calcium panel 01/17/18 Range/Units 03:25 Calcium 8.5 L (8.6-10.3) mg/dL Pituitary panel 01/17/18 Range/Units 03:25 Sodium 133 L (136-145) mEq/L Potassium 3.8 (3.5-5.1) mEq/L Chloride 100 (98-107) mEq/L Carbon Dioxide 27 (23-29) mEq/L BUN 9 (6-20) mg/dL Creatinine 0.70 (0.70-1.30) mg/dL Glucose 210 H (70-105) mg/dL Calcium 8.5 L (8.6-10.3) mg/dL Adrenal panel 01/17/18 Range/Units 03:25 Sodium 133 L (136-145) mEq/L Potassium 3.8 (3.5-5.1) mEq/L Chloride 100 (98-107) mEq/L Carbon Dioxide 27 (23-29) mEq/L BUN 9 (6-20) mg/dL Creatinine 0.70 (0.70-1.30) mg/dL Glucose 210 H (70-105) mg/dL Calcium 8.5 L (8.6-10.3) mg/dL All other labs normal. - Attending Attestation I examined this patient and my medical decision-making was reviewed with the Resident Physician. I agree with the documented findings, disposition and treatment plan as described except to the extent set forth below. I reviewed the above assessment and evaluation and agree with the above plan.
[2018-01-16] MEDS: Ondansetron 4 MG/2 ML VIAL IVP PRN ×2 (13:54→20:06)
--- NOTE | 2018-01-16 17:21 | Electrocardiograph Report ---
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
[2018-01-16] MEDS ORDERED: D5% in Water 1,000 ML IVC PRN (17:41)
[2018-01-16] MEDS ORDERED: *HR* Dextrose 50 % in Water (Syg) 50 ML SYRINGE IVP PRN (17:41)
[2018-01-16] MEDS ORDERED: Dextrose Gel 15 GM/37.5 ML TUBE PO PRN ×2 (17:41)
[2018-01-16] MEDS: Insulin LISPRO 300 UNITS/3 ML VIAL SQ SCH (18:04)
[2018-01-16] MEDS ORDERED: Insulin LISPRO 300 UNITS/3 ML VIAL SQ SCH (21:00)
[2018-01-17] MEDS: *HR* OxyCODONE Immed Rel 5 MG TABLET PO PRN (00:30)
[2018-01-17] MEDS: Piperacillin/Tazobactam 3.375 GM in 0.9 % Sodium Chloride Mini Bag 100 ML IVPB SCH ×2 (00:30→08:07)
[2018-01-17] MEDS: Ondansetron 4 MG/2 ML VIAL IVP PRN (02:53)
[2018-01-17 03:43] LABS: Basophils # 0.1 K/mcL (0.0-0.2); Basophils % 0.8 %; Eosinophils # 0.2 K/mcL (0.0-0.6); Hematocrit 35.8 % (37.5-50.1); Immature Granulocytes % 0.5 % (0-4); Lymphocytes # 1.3 K/mcL (0.6-4.6); Lymphocytes % 16.4 %; Mean Corpuscular HGB Conc 31.3 g/dL (31.6-35.5); Mean Corpuscular Hemoglobin 26.5 pg (28.0-33.3); Mean Corpuscular Volume 84.8 fL (83.0-100.0); Mean Platelet Volume 9.7 fL (9.4-12.4); Monocytes # 0.5 K/mcL (0.0-1.3); Monocytes % 6.2 %; Neutrophils # 5.8 K/mcL (1.6-8.9); Platelet Count 392 K/mcL (140-400); Red Blood Count 4.22 M/mcL (4.19-5.50); Red Cell Distribution Width 14.4 % (11.5-14.5); Segmented Neutrophils % 73.1 %
[2018-01-17 03:44] LABS: Hemoglobin 11.2 g/dL (12.9-16.9)
[2018-01-17 04:03] LABS: BUN/Creatinine Ratio 13 (6-26); Blood Urea Nitrogen 9 mg/dL (6-20); Calcium 8.5 mg/dL (8.6-10.3); Carbon Dioxide 27 mEq/L (23-29); Chloride 100 mEq/L (98-107); Glucose 210 mg/dL (70-105); Lipase 16 Units/L (11-82); Osmolality,Calculated 281 (280-300); Potassium 3.8 mEq/L (3.5-5.1); Sodium 133 mEq/L (136-145); eGFR For Non-African Americans > 60 (> 60)
[2018-01-17] MEDS: *HR* Heparin 5,000 UNIT/ML VIAL SQ SCH (05:42)
[2018-01-17] MEDS: D5% in 0.45% NACL w KCl 20 MEQ/1,000 ML MLS IVC SCH (05:43)
[2018-01-17 07:11] VITALS: BP 122/79
--- NOTE | 2018-01-17 07:57 | Discharge Summary ---
Date of Encounter: 01/17/18 Time of Encounter: 07:58 - Discharge Diagnosis (1) Intra-abdominal abscess Priority: Primary Status: Acute Comments: CT/CT guided asp with tube IMPRESSION: Successful CT guided placement of right lower quadrant abdominal abscess drainage catheter. D/ / Basilio Ramos MD / Basilio Ramos MD Post Procedure Day #1 Patient tolerated Procedure well Total drainage from GIRISH drain yesterday 45ml, so far today 20ml. To follow up on the with Brianna Murcia. (2) Essential hypertension Priority: Secondary Status: Chronic (3) Type 2 diabetes mellitus Priority: Secondary Status: Chronic Qualifiers: Diabetes mellitus exterminator insulin use: without detention use Diabetes mellitus complication status: without complication Qualified Code(s): E11.9 - Type 2 diabetes mellitus without complications General Surgery Exam Initial Vital Signs Temp Pulse Resp BP Pulse Ox 97.9 F 72 18 148/84 97 01/15/18 12:41 01/15/18 12:41 01/15/18 12:41 01/15/18 12:41 01/15/18 12:41 - General physical appearance well developed, well nourished, no distress - Neck no masses, no bruits, trachea midline - Respiratory normal expansion, normal respiratory effort, clear to auscultation - Cardiovascular Cardiovascular exam: Present: RRR, no murmurs/rubs/gallops - Abdomen Abdomen general surgery: Present: bowel sounds present, soft, tender Abdominal Tenderness: Present: diffusely (less so than yesterday) - Incision Incision: Present: draining (GIRISH drain serosanguinous ) - Musculoskeletal Present: normal posture - Psychiatric Psychiatric general surgery: Present: oriented to person, oriented to place, oriented to time - Hospital Course Hospital course: Mr. Dewey is a 42 year old male who presented to the ED on 01/15/18 for abdominal pain, 1 week post op from laproscopic appendectomy. He had a Needle Aspiration CT on 01/16/18 for abscess at the appendiceal stump and placement of a GIRISH drain. Patient tolerated this procedure well and has been tolerating a regular diet. Patient will be discharged today with PO Augmetin and PO pain medications. Follow up with Brianna Murcia on January 24 at 8:45. - Time Spent with Patient Total time spent providing and/or coordinating discharge services: - Discharge Medications Prescriptions: OxyCODONE/APAP 5/325 [Percocet 5/325 MG] 1 each PO Q8HR PRN 5 Days #15 tablet PRN Reason: Moderate Pain Amoxicillin/Clavulanate [Augmentin] 875 mg PO BIDWM 14 Days #28 tablet Home Medications: Citalopram [CeleXA] 20 mg PO DAILY 12/18/17 [History] Ferrous Gluconate 324 mg PO DAILY 12/18/17 [History] Losartan/HCTZ [Hyzaar 50-12.5 Tablet] 1 each PO DAILY 12/18/17 [History] Multivitamin [One Daily Multivitamin] 1 tab PO DAILY 12/18/17 [History] metFORMIN [Glucophage] 500 mg PO BIDWM 12/18/17 [History] Acetaminophen [Tylenol] 325 mg PO Q6H PRN 01/08/18 [History] Ciprofloxacin [Cipro] 500 mg PO BID 5 Days #10 tablet 01/08/18 [Rx] MetroNIDAZOLE [Flagyl] 500 mg PO BID 5 Days #10 capsule 01/08/18 [Rx] OxyCODONE/APAP 7.5/325 [Percocet 7.5/325 MG] 1 each PO Q8HR PRN 7 Days #21 tablet 01/08/18 [Rx] Amoxicillin/Clavulanate [Augmentin] 875 mg PO BIDWM 14 Days #28 tablet 01/17/18 [Rx] OxyCODONE/APAP 5/325 [Percocet 5/325 MG] 1 each PO Q8HR PRN 5 Days #15 tablet [Rx] Allergies/Adverse Reactions: 3 Allergy/AdvReac Type Severity Reaction Status Date / Time sulfamethoxazole AdvReac Nausea Verified 01/15/18 12:42 [From Bactrim] trimethoprim [From Bactrim] AdvReac Nausea Verified 01/15/18 12:42 Date of admission: 01/16/18 13:59 Primary care physician: Babak Allison MD Discharging clinician: Felix Blas Anticipated date of discharge: 01/17/18 Labs on day of discharge: Labs from last 24 hours 01/17/18 01/17/18 03:25 03:25 WBC 7.9 RBC 4.22 Hgb 11.2 L D Hct 35.8 L MCV 84.8 MCH 26.5 L MCHC 31.3 L RDW 14.4 Plt Count 392 MPV 9.7 Immature Gran % 0.5 Seg Neutrophils % 73.1 Lymphocytes % 16.4 Monocytes % 6.2 Eosinophils % 3.0 Basophils % 0.8 Neutrophils # 5.8 Lymphocytes # 1.3 Monocytes # 0.5 Eosinophils # 0.2 Basophils # 0.1 Sodium 133 L Potassium 3.8 Chloride 100 Carbon Dioxide 27 BUN 9 Creatinine 0.70 Est GFR ( Amer) > 60 Est GFR (Non-Af Amer) > 60 BUN/Creatinine Ratio 13 Glucose 210 H Calculated Osmolality 281 Calcium 8.5 L Lipase 16 - Patient Status Disposition: Home, Self-Care Condition: Good Functional capacity at discharge: independent ambulation Overall status at discharge: patient is progressing back to baseline - [facility] Instructions [facility] Follow Up With: Babak Allison MD [Primary Care Provider] - Additional Instructions: 1. No pushing, pulling, or lifting greater than 15 lbs for 2-4 weeks (depending upon procedure). 2. You may shower beginning today, but no tub baths, soaking, or swimming for 2 weeks. 3. You may resume driving when you are off narcotics and are safe to react in a car. 4. Take ibuprofen every 8 hours for discomfort. If this does not relieve discomfort, you may take the as needed Percocet. Take narcotics as directed. Do not take more narcotics then directed and do not share your narcotics with any other person. Do not drink alcohol while on narcotics. 5. Take stool softeners (Colace) or a water based laxative (Miralax) while taking narcotics. You may hold for loose stools. 6. Report any fevers greater than 100.5F, increase abdominal discomfort, drainage that looks like pus, increased redness or pain at the surgical site, or any vomiting. 7. Report any pain in the calves, shortness of breath, or rapid heartbeat. 8. Follow-up in the office as directed. 9. If you were prescribed antibiotics, do not stop them without talking to your provider. 10. Follow up on January 24 at 8:45 with Summer Murcia - Diet and Activity Activity: increase activity as tolerated Diet: advance to your usual diet
[2018-01-17] MEDS: Nicotine 7 MG PATCH.TD24 TD SCH (08:09)
[2018-01-17] MEDS: Insulin LISPRO 300 UNITS/3 ML VIAL SQ SCH ×2 (08:12→12:22)
== END 2018-01-17 12:53 | disposition home or self-care (01) | DRG 248 ==
LOC: EMEROOARM 12:38 → 3ANU 12:38
PROVIDERS: ADMIT Surgery; ATTEND Surgery
PROC: IRDRAIN (2018-01-16 12:00)